=== PATIENT | female | born 1995 | race Caucasian/White ===

== ENCOUNTER 2016-02-28 19:59 | Emergency (ER) | payer OTHER ==
--- NOTE | 2016-02-28 21:26 | ED.PDOC ---
History of Present Illness - General Chief Complaint: Problem Stated Complaint: BACK PAIN Time Seen by Provider: 02/28/16 20:44 Source: patient, family Exam Limitations: no limitations - History of Present Illness Initial Comments: Patient is a at 21 weeks who presents with right flank pain. She started nitrofurantoin for a UTI yesterday and has taken 3 doses. The pain developed today. It is non-radiating, no previous episodes, sharp in nature, associated with occasional nausea. No other complaints. Timing/Duration: 4-6 hours Severity: moderate Improving Factors: nothing Worsening Factors: nothing Associated Symptoms: denies symptoms Allergies/Adverse Reactions: Allergies Oxytocin [From Pitocin] Allergy (Verified 02/28/16 20:44) Soap Adverse Reaction (Intermediate, Verified 02/28/16 20:44) Rash ADHESIVE Adverse Reaction (Uncoded 02/28/16 20:44) Home Medications: Ambulatory Orders Albuterol Sulfate [Proair Hfa] 2 puff INH Q6H PRN 11/07/15 Vit W/ Ferrous Fumara [] 1 tab PO DAILY 11/07/15 Review of Systems - Review of Systems Constitutional: States: no symptoms reported EENTM: States: no symptoms reported Respiratory: States: no symptoms reported Cardiology: States: no symptoms reported Gastrointestinal/Abdominal: States: see HPI Genitourinary: States: see HPI Musculoskeletal: States: see HPI Skin: States: no symptoms reported Neurological: States: no symptoms reported Endocrine: States: no symptoms reported Hematologic/Lymphatic: States: no symptoms reported Past Medical History (General) - Patient Medical History Hx Seizures: No Hx Stroke: No Hx Dementia: No Hx Asthma: Yes Hx of COPD: No Hx Cardiac Disorders: No Hx Congestive Heart Failure: No Hx Pacemaker: No Hx Hypertension: No Hx Thyroid Disease: No Hx Diabetes: No Hx Gastroesophageal Reflux: No Hx Renal Disease: No Hx of HIV: No Hx MRSA: No - Vaccination History Hx Tetanus, Diphtheria Vaccination: No Hx Influenza Vaccination: No Hx Pneumococcal Vaccination: No Immunizations Up to Date: Yes - Social History Hx Tobacco Use: No Hx Alcohol Use: No Hx Substance Use: No Hx Substance Use Treatment: No Hx Depression: No - Female History Patient is a Female of Child Bearing Age (10 -59 yrs old): Yes Hx Last Menstrual Period: 09/23/15 Patient : Yes Expected Date of Delivery:: 06/08/13 Hx Gestational Age: 21 - Triage Comment ED Triage Comment: SHE STATES THAT SHE IS 21 WEEKS,,, Family Medical History - Family History Mother Family History: Unknown Living Status: Still Living Hx Family Hypertension: Yes Hx Family;Other: Seizures Physical Exam - Physical Exam General Appearance: Alert Respiratory: lungs clear Cardiovascular/Chest: regular rate, rhythm Gastrointestinal/Abdominal: normal bowel sounds, non tender, soft, other - FHTs 160s Progress - Progress Progress: 02/28/16 22:17 wbc 13.6 CRP 0.6 FHTs 160s Patient discharged with orders to return if symptoms progress. Departure - Departure Clinical Impression: Flank pain, acute Disposition: Discharge to Home or Self Care Condition: Good Departure Forms: ED Discharge - Pt. Copy, Patient Portal Self Enrollment Diet: resume usual diet Activity: increase activity as tolerated Referrals: Deric Bingham MD [Primary Care Provider] - 1-2 Weeks Home Medications: Ambulatory Orders Albuterol Sulfate [Proair Hfa] 2 puff INH Q6H PRN 11/07/15 Vit W/ Ferrous Fumara [] 1 tab PO DAILY 11/07/15 Additional Instructions: Follow up with your regular doctor next week. Return to the ER if symptoms worsen or for fever.
[2016-02-28 21:35] VITALS: O2SAT 98
[2016-02-28 22:21] VITALS: BP 111/70; TEMP 97.4
== END 2016-02-28 22:19 | disposition home or self-care (01) ==
LOC: ER 19:59
DX: O26.92 Pregnancy related conditions, unspecified, second trimester (principal); Z3A.21 21 weeks gestation of pregnancy; Z88.8 Allergy status to other drugs, medicaments and biological substances; Z91.048 Other nonmedicinal substance allergy status; J45.909 Unspecified asthma, uncomplicated

== ENCOUNTER 2016-03-28 11:24 | Emergency (ER) | payer OTHER ==
[2016-03-28 11:39] VITALS: BP 100/60; TEMP 97.3
--- NOTE | 2016-03-28 12:14 | ED.PDOC ---
History of Present Illness - General Chief Complaint: Respiratory Problem Stated Complaint: cough,congestion Time Seen by Provider: 03/28/16 12:11 Source: patient Exam Limitations: no limitations - History of Present Illness Initial Comments: She stated that she has history of asthma on mdi and the last 3 days cough becoming more frequent and nasal congestion worse.denies feve /chills. Timing/Duration: other - 3 days Severity: moderate Improving Factors: nothing Worsening Factors: nothing Associated Symptoms: denies symptoms, other - denies uterine contraction or vaginal bleeding Allergies/Adverse Reactions: Allergies Oxytocin [From Pitocin] Allergy (Verified 02/28/16 20:44) Soap Adverse Reaction (Intermediate, Verified 02/28/16 20:44) Rash ADHESIVE Adverse Reaction (Uncoded 02/28/16 20:44) Home Medications: Ambulatory Orders Vit W/ Ferrous Fumara [] 1 tab PO DAILY 11/07/15 predniSONE [Prednisone] 10 mg PO AC #7 tab 03/28/16 Review of Systems - Review of Systems Constitutional: States: no symptoms reported EENTM: States: nose congestion Respiratory: States: cough - non productive Cardiology: States: no symptoms reported Gastrointestinal/Abdominal: States: no symptoms reported Genitourinary: States: no symptoms reported Musculoskeletal: States: no symptoms reported Skin: States: no symptoms reported Neurological: States: no symptoms reported Endocrine: States: no symptoms reported Hematologic/Lymphatic: States: no symptoms reported Past Medical History (General) - Patient Medical History Hx Seizures: No Hx Stroke: No Hx Dementia: No Hx Asthma: Yes Hx of COPD: No Hx Cardiac Disorders: No Hx Congestive Heart Failure: No Hx Pacemaker: No Hx Hypertension: No Hx Thyroid Disease: No Hx Diabetes: No Hx Gastroesophageal Reflux: No Hx Renal Disease: No Hx of HIV: No Hx MRSA: No Surgical History: other - - Vaccination History Hx Tetanus, Diphtheria Vaccination: No Hx Influenza Vaccination: No Hx Pneumococcal Vaccination: No - Social History Hx Tobacco Use: No Hx Alcohol Use: No Hx Substance Use: No Hx Substance Use Treatment: No Hx Depression: No - Activities of Daily Living Patient Lives Alone: No - family - Female History Patient is a Female of Child Bearing Age (10 -59 yrs old): Yes Hx Last Menstrual Period: 09/23/15 Patient : Yes Expected Date of Delivery:: 07/06/16 Hx Gestational Age: 25 Family Medical History - Family History Mother Family History: Unknown Living Status: Still Living Hx Family Asthma: Yes Hx Family Hypertension: Yes Hx Family;Other: Seizures Physical Exam - Physical Exam General Appearance: Alert, No apparent distress Eye Exam: bilateral normal Ears, Nose, Throat: nasal congestion Neck: non-tender, full range of motion, supple Respiratory: chest non-tender, no respiratory distress, no accessory muscle use , wheezing Cardiovascular/Chest: normal peripheral pulses, regular rate, rhythm, no edema, no gallop, no JVD, no murmur Gastrointestinal/Abdominal: normal bowel sounds, non tender, soft, other - gravid uterus Extremity: non-tender, normal inspection Neurologic: alert, normal mood/affect, oriented x 3 Skin Exam: normal color, warm/dry Lymphatic: no adenopathy Departure - Departure Clinical Impression: Asthma with exacerbation Qualifiers: Asthma severity: unspecified severity Qualifier Code: (J45.901) Unspecified asthma with (acute) exacerbation Time of Disposition: 13:11 Disposition: Discharge to Home or Self Care Condition: Good Departure Forms: ED Discharge - Pt. Copy, Patient Portal Self Enrollment Instructions: Tips for Controlling Your Asthma, DI for Asthma -- Adult, Poorly Controlled Maternal Asthma May Increase Risk of , Pandemic (H1N1) Influenza Vaccine: Questions and Answers, Influenza Vaccine Referrals: Deric Bingham MD [Primary Care Provider] - 1-2 Weeks Prescriptions: predniSONE [Prednisone] 10 mg PO AC #7 tab Home Medications: Ambulatory Orders Vit W/ Ferrous Fumara [] 1 tab PO DAILY 11/07/15 predniSONE [Prednisone] 10 mg PO AC #7 tab 03/28/16 Additional Instructions: CONTINUE WITH HOME MEDS FOR ASTHMA;RETURN TO EMERGENCY ROOM NEEDED;FOLLOW UP WITH PRIMARY MD 03/31/2016 call for appointment
[2016-03-28] MEDS ORDERED: LEVALBUTEROL NEBS 1.25 MG/3 ML VIAL NEB ONE (12:19)
[2016-03-28 12:40] VITALS: O2SAT 98
== END 2016-03-28 13:45 | disposition home or self-care (01) ==
LOC: ER 11:24
DX: O99.512 Diseases of the respiratory system complicating pregnancy, second trimester (principal); J45.901 Unspecified asthma with (acute) exacerbation; Z3A.25 25 weeks gestation of pregnancy; Z88.8 Allergy status to other drugs, medicaments and biological substances; Z91.048 Other nonmedicinal substance allergy status
CPT/HCPCS: 94640; J7614

== ENCOUNTER 2016-03-29 13:11 | Emergency (ER) | payer OTHER ==
[2016-03-29] MEDS ORDERED: IPRATROPIUM/ALBUTEROL 3 ML VIAL NEB ONE ×2 (13:18→13:19)
[2016-03-29 13:23] VITALS: TEMP 98.7
--- NOTE | 2016-03-29 13:31 | ED.PDOC ---
History of Present Illness - General Chief Complaint: Respiratory Problem Stated Complaint: difficulty breathing Time Seen by Provider: 03/29/16 13:19 Source: patient, RN notes reviewed, Vital Signs reviewed, family, old records Exam Limitations: no limitations - History of Present Illness Initial Comments: Patient returns to the ER today with continued complaints of SOB. Today she also reports burning in her chest. She was seen yesterday with the same symptoms and improved with a neb treatment. She is 25 weeks . She also c /o of a lot of nasal congestion. Timing/Duration: days Severity: moderate Activities at Onset: rest Possible Cause: allergen exposure, illness exposure Improving Factors: medication Worsening Factors: nothing Associated Symptoms: anxiety, chest pain, cough Respiratory Risk Factors: exposure to allergen Allergies/Adverse Reactions: Allergies Oxytocin [From Pitocin] Allergy (Verified 02/28/16 20:44) Soap Adverse Reaction (Intermediate, Verified 02/28/16 20:44) Rash ADHESIVE Adverse Reaction (Uncoded 02/28/16 20:44) Home Medications: Ambulatory Orders Vit W/ Ferrous Fumara [] 1 tab PO DAILY 11/07/15 predniSONE [Prednisone] 10 mg PO AC #7 tab 03/28/16 Azithromycin [Zithromax Z-Barber] 1 ea PO DAILY #1 pack 03/29/16 Review of Systems - Review of Systems Constitutional: States: no symptoms reported. Denies: chills, diaphoresis, fever, malaise, weakness EENTM: States: nose congestion. Denies: blurred vision, ear pain, throat pain, throat swelling, mouth swelling Respiratory: States: cough, short of breath. Denies: orthopnea, stridor, wheezing Cardiology: States: no symptoms reported. Denies: chest pain, edema, palpitations, syncope Gastrointestinal/Abdominal: States: no symptoms reported Genitourinary: States: no symptoms reported Musculoskeletal: States: no symptoms reported Skin: States: no symptoms reported Neurological: States: no symptoms reported Past Medical History (General) - Patient Medical History Hx Seizures: No Hx Stroke: No Hx Dementia: No Hx Asthma: Yes Hx of COPD: No Hx Cardiac Disorders: No Hx Congestive Heart Failure: No Hx Pacemaker: No Hx Hypertension: No Hx Thyroid Disease: No Hx Diabetes: No Hx Gastroesophageal Reflux: No Hx Renal Disease: No Hx of HIV: No Hx MRSA: No - Vaccination History Hx Tetanus, Diphtheria Vaccination: No Hx Influenza Vaccination: No Hx Pneumococcal Vaccination: No - Social History Hx Tobacco Use: No Hx Alcohol Use: No Hx Substance Use: No Hx Substance Use Treatment: No Hx Depression: No - Female History Patient is a Female of Child Bearing Age (10 -59 yrs old): Yes Hx Last Menstrual Period: 09/23/15 Patient : Yes Expected Date of Delivery:: 07/06/16 Hx Gestational Age: 25 Family Medical History - Family History Mother Family History: Unknown Living Status: Still Living Hx Family Asthma: Yes Hx Family Hypertension: Yes Hx Family;Other: Seizures Physical Exam - Physical Exam General Appearance: Alert, Anxious - Crying on arrival to ER, No apparent distress, Well Developed, Well Groomed, Well Hydrated, Well Nourished Eyes, Ears, Nose, Throat Exam: other - Nasal congestion Neck: non-tender, full range of motion, supple, normal inspection Respiratory: chest non-tender, lungs clear, normal breath sounds, no respiratory distress, no accessory muscle use Cardiovascular/Chest: regular rate, rhythm, no edema, no gallop, no JVD, no murmur Extremity: normal range of motion, non-tender, normal inspection, no pedal edema Neurologic: no motor/sensory deficits, alert, normal mood/affect, oriented x 3 Skin Exam: normal color, warm/dry Lymphatic: no adenopathy Progress - EKG/XRAY/CT XRAY: chest - No acute process Departure - Departure Clinical Impression: Acute bronchospasm, Acute bronchitis Time of Disposition: 14:39 Disposition: Discharge to Home or Self Care Condition: Good Departure Forms: ED Discharge - Pt. Copy, Patient Portal Self Enrollment Instructions: DI for Acute Bronchitis, Asthma -- Adult Diet: resume usual diet Activity: increase activity as tolerated Prescriptions: Azithromycin [Zithromax Z-Barber] 1 ea PO DAILY #1 pack Home Medications: Ambulatory Orders Vit W/ Ferrous Fumara [] 1 tab PO DAILY 11/07/15 predniSONE [Prednisone] 10 mg PO AC #7 tab 03/28/16 Azithromycin [Zithromax Z-Barber] 1 ea PO DAILY #1 pack 03/29/16
--- NOTE | 2016-03-29 14:37 | RAD ---
PROCEDURE: Chest,2 Views CLINICAL HISTORY: SOB INDICATION: Same as above COMPARISON: 12/19/2011 TECHNIQUE: PA and and lateral chest radiographs were obtained. FINDINGS: The lung freeman are well inflated. There are no discrete airspace infiltrates, pneumothoraces or pleural effusions. The pulmonary vascularity is normal The cardiomediastinal silhouette is unremarkable for patient's age and sex. IMPRESSION: There is no acute pleural-parenchymal process seen in the imaged lung freeman. Place of interpretation: [facility]. 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
[2016-03-29] MEDS ORDERED: methylPREDNISolone SODIUM SUC 125 MG/2 ML VIAL IM ONE (14:38)
[2016-03-29 15:11] VITALS: BP 107/76; O2SAT 98
--- NOTE | 2016-04-13 00:07 | RAD ---
PROCEDURE: Chest,2 Views CLINICAL HISTORY: SOB INDICATION: Same as above COMPARISON: 12/19/2011 TECHNIQUE: PA and and lateral chest radiographs were obtained. FINDINGS: The lung freeman are well inflated. There are no discrete airspace infiltrates, pneumothoraces or pleural effusions. The pulmonary vascularity is normal The cardiomediastinal silhouette is unremarkable for patient's age and sex. IMPRESSION: There is no acute pleural-parenchymal process seen in the imaged lung freeman. Place of interpretation: [facility]. 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
== END 2016-03-29 15:10 | disposition home or self-care (01) ==
LOC: ER 13:11
DX: O99.512 Diseases of the respiratory system complicating pregnancy, second trimester (principal); J20.9 Acute bronchitis, unspecified; Z3A.25 25 weeks gestation of pregnancy; Z88.8 Allergy status to other drugs, medicaments and biological substances; Z91.048 Other nonmedicinal substance allergy status
CPT/HCPCS: 71020; 94640; J2930; J7620

== ENCOUNTER 2016-04-25 16:19 | Emergency (ER) | payer OTHER ==
--- NOTE | 2016-04-25 16:42 | ED.PDOC ---
History of Present Illness - General Chief Complaint: Problem Stated Complaint: dysuria Time Seen by Provider: 04/25/16 16:20 Source: patient, RN notes reviewed Exam Limitations: no limitations Additional Information: Pt reports symptoms consistent with a UTI - dysuria and increased urinary frequency. She denies vaginal bleeding and she states she feels the baby moving. - History of Present Illness Timing/Duration: yesterday Quality: moderate Onset Location: suprapubic Radiation: none Activites at Onset: none Improving Factors: nothing Worsening Factors: nothing Associated Symptoms: dysuria, urinary frequency Allergies/Adverse Reactions: Allergies Oxytocin [From Pitocin] Allergy (Verified 02/28/16 20:44) Soap Adverse Reaction (Intermediate, Verified 02/28/16 20:44) Rash ADHESIVE Adverse Reaction (Uncoded 02/28/16 20:44) Home Medications: Ambulatory Orders Vit W/ Ferrous Fumara [] 1 tab PO DAILY 11/07/15 Nitrofurantoin Monohydrate Mac [Macrobid] 100 mg PO BID #10 cap 04/25/16 Review of Systems - Review of Systems Constitutional: States: no symptoms reported EENTM: States: no symptoms reported Respiratory: States: no symptoms reported Cardiology: States: no symptoms reported Gastrointestinal/Abdominal: States: no symptoms reported Genitourinary: States: see HPI, dysuria, frequency Musculoskeletal: States: no symptoms reported Skin: States: no symptoms reported Neurological: States: no symptoms reported Endocrine: States: no symptoms reported Hematologic/Lymphatic: States: no symptoms reported Past Medical History (General) - Patient Medical History Hx Seizures: No Hx Stroke: No Hx Dementia: No Hx Asthma: Yes Hx of COPD: No Hx Cardiac Disorders: No Hx Congestive Heart Failure: No Hx Pacemaker: No Hx Hypertension: No Hx Thyroid Disease: No Hx Diabetes: No Hx Gastroesophageal Reflux: No Hx Renal Disease: No Hx of HIV: No Hx MRSA: No - Vaccination History Hx Tetanus, Diphtheria Vaccination: No Hx Influenza Vaccination: No Hx Pneumococcal Vaccination: No - Social History Hx Tobacco Use: No Hx Alcohol Use: No Hx Substance Use: No Hx Substance Use Treatment: No Hx Depression: No - Female History Hx Last Menstrual Period: 09/23/15 Patient : Yes Expected Date of Delivery:: 07/06/16 Hx Gestational Age: 25 Family Medical History - Family History Mother Family History: Unknown Living Status: Still Living Hx Family Asthma: Yes Hx Family Hypertension: Yes Hx Family;Other: Seizures Physical Exam - Physical Exam General Appearance: Alert, Comfortable, No apparent distress, Well Developed, Well Groomed, Well Hydrated, Well Nourished, Other - Gravid - reported 29 weeks EGA. Eyes, Ears, Nose, Throat Exam: PERRL/EOMI, normal ENT inspection, pharynx normal Neck: non-tender, full range of motion, supple, normal inspection Cardiovascular/Respiratory: normal peripheral pulses, no respiratory distress Gastrointestinal/Abdominal: soft, other - FHR 160s Back Exam: normal inspection Extremity: normal range of motion, non-tender, normal inspection Neurologic: manager bilingual II-XII nml as tested, no motor/sensory deficits, alert, normal mood/affect, oriented x 3 Skin Exam: normal color Lymphatic: no adenopathy Progress - Progress Progress: 04/25/16 17:33 U/A suggestive of UTI. Will cover with nitrofurantoin and order Urine Culture to confirm presence of UTI. Pt with OB f/u in 3 days. Pt ok to discharge home with strict return precautions. - Results/Orders Results/Orders: 04/25/16 16:49 URINE CULTURE W/COLONY COUNT Stat Laboratory Results - last 24 hr 04/25/16 16:34 Urine Color Yellow Urine Appearance Sl cloudy Urine pH 7.0 Ur Specific [place] 1.015 Urine Protein Negative Urine Glucose (UA) Negative Urine Ketones Negative Urine Blood Trace-lysed H Urine Nitrite Negative Urine Bilirubin Negative Urine Urobilinogen 0.2 Ur Leukocyte Esterase Trace H Urine RBC 1-3 Urine WBC 3-5 H Ur Epithelial Cells 3-5 Urine Bacteria 1+ Departure - Departure Clinical Impression: Acute cystitis during Qualifiers: Trimester: third trimester Qualifier Code: (O23.13) Infections of bladder in , third trimester Time of Disposition: 17:40 Disposition: Discharge to Home or Self Care Condition: Good Departure Forms: ED Discharge - Pt. Copy, Patient Portal Self Enrollment Referrals: Deric Bingham MD [Primary Care Provider] - 1-5 Days Prescriptions: Nitrofurantoin Monohydrate Mac [Macrobid] 100 mg PO BID #10 cap Home Medications: Ambulatory Orders Vit W/ Ferrous Fumara [] 1 tab PO DAILY 11/07/15 Nitrofurantoin Monohydrate Mac [Macrobid] 100 mg PO BID #10 cap 04/25/16 Additional Instructions: Follow up with OB provider as scheduled. Return to ER if condition worsens, or vaginal bleeding. Take medicine as prescribed. Follow-up on urine culture results in 2 to 3 days. Stay well hydrated with water - at least 1 to 2 liters/day.
[2016-04-25 18:48] VITALS: TEMP 98.4; O2SAT 95
[2016-04-25 19:07] VITALS: BP 124/68
== END 2016-04-25 17:56 | disposition home or self-care (01) ==
LOC: ER 16:19
DX: O23.43 Unspecified infection of urinary tract in pregnancy, third trimester (principal); O99.513 Diseases of the respiratory system complicating pregnancy, third trimester; J45.909 Unspecified asthma, uncomplicated; Z3A.29 29 weeks gestation of pregnancy; Z88.8 Allergy status to other drugs, medicaments and biological substances; Z91.048 Other nonmedicinal substance allergy status

== ENCOUNTER 2016-06-30 20:01 | Emergency (ER) | payer OTHER ==
[2016-06-30 20:32] VITALS: BP 125/82; TEMP 99.1; O2SAT 99
[2016-06-30] MEDS ORDERED: AMOXICILLIN & POT CLAVULANATE 875 MG TAB PO ONE (20:32)
[2016-06-30] MEDS ORDERED: ONDANSETRON ODT 8 MG TAB SL ONE (20:32)
--- NOTE | 2016-06-30 20:35 | ED.PDOC ---
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 She thinks she has mastitis. She is having a lot of difficulty with breast feeding. She has tried breast feeding by won't latch on. She has tried pumps, hot compressed and cabbage leaves, all without success. Timing/Duration: 24 hours Severity: moderate Improving Factors: nothing Worsening Factors: nothing Associated Symptoms: headaches, malaise, nausea/vomiting Allergies/Adverse Reactions: Allergies Soap Adverse Reaction (Intermediate, Verified 06/30/16 20:21) Rash Oxytocin [From Pitocin] Adverse Reaction (Verified 06/30/16 20:21) ADHESIVE Adverse Reaction (Uncoded 06/30/16 20:21) Home Medications: Ambulatory Orders Vit W/ Ferrous Fumara [] 1 tab PO DAILY 11/07/15 Amoxicillin & Pot Clavulanate [Augmentin] 875 mg PO BID #20 tab 06/30/16 Ibuprofen 800 mg PO PRN 06/30/16 Ondansetron [Zofran Odt] 4 mg PO Q4HR PRN #20 tab 06/30/16 Oxycodone W/ Acetaminophen [Percocet 5-325 mg] 1 dose PO PRN 06/30/16 Review of Systems - Review of Systems Constitutional: States: chills, fever, malaise EENTM: States: no symptoms reported Respiratory: States: no symptoms reported Cardiology: States: no symptoms reported Gastrointestinal/Abdominal: States: nausea. Denies: abdominal pain, vomiting Musculoskeletal: States: no symptoms reported Skin: States: see HPI, other - Breasts are engorged, erythematous, tender and warm Neurological: States: headache Endocrine: States: no symptoms reported Past Medical History (General) - Patient Medical History Hx Seizures: No Hx Stroke: No Hx Dementia: No Hx Asthma: Yes Hx of COPD: No Hx Cardiac Disorders: No Hx Congestive Heart Failure: No Hx Pacemaker: No Hx Hypertension: No Hx Thyroid Disease: No Hx Diabetes: No - hypoglycemia Hx Gastroesophageal Reflux: No Hx Renal Disease: No Hx Cancer: No Hx of HIV: No Hx Hepatitis C: No Hx MRSA: No - Vaccination History Hx Tetanus, Diphtheria Vaccination: No Hx Influenza Vaccination: No Hx Pneumococcal Vaccination: No - Social History Hx Tobacco Use: No Hx Chewing Tobacco Use: No Hx Alcohol Use: No Hx Substance Use: No Hx Substance Use Treatment: No Hx Depression: No Hx Physical Abuse: No Hx Emotional Abuse: No Hx Suspected Abuse: No - Female History Patient is a Female of Child Bearing Age (10 -59 yrs old): Yes Hx Last Menstrual Period: 09/23/15 Patient : No Expected Date of Delivery:: 07/06/16 Hx Gestational Age: 25 Family Medical History - Family History Mother Family History: Unknown Living Status: Still Living Hx Family Asthma: Yes Hx Family Hypertension: Yes Hx Family;Other: Seizures Physical Exam - Physical Exam General Appearance: Alert, No apparent distress, Ill Appearing, Well Developed, Well Groomed, Well Hydrated, Well Nourished Respiratory: lungs clear, normal breath sounds, no respiratory distress, no accessory muscle use Cardiovascular/Chest: regular rate, rhythm, no gallop, no murmur, other - Bilateral Breast: engorged, erythematous, tender and warm to the touch Gastrointestinal/Abdominal: other - C-sec incision: healing well, no signs of infection Extremity: normal range of motion, non-tender, normal inspection, no pedal edema Neurologic: alert, normal mood/affect, oriented x 3 Departure - Departure Clinical Impression: Mastitis, acute Time of Disposition: 20:39 Disposition: Discharge to Home or Self Care Condition: Fair Departure Forms: ED Discharge - Pt. Copy, Patient Portal Self Enrollment Instructions: DI for Mastitis Referrals: Liliana Massey NP [Primary Care Provider] - 1-2 Weeks Deric Bingham MD [Active Staff] - 1-5 Days Prescriptions: Ondansetron [Zofran Odt] 4 mg PO Q4HR PRN #20 tab PRN Reason: Nausea/Vomiting Amoxicillin & Pot Clavulanate [Augmentin] 875 mg PO BID #20 tab Home Medications: Ambulatory Orders Vit W/ Ferrous Fumara [] 1 tab PO DAILY 11/07/15 Amoxicillin & Pot Clavulanate [Augmentin] 875 mg PO BID #20 tab 06/30/16 Ibuprofen 800 mg PO PRN 06/30/16 Ondansetron [Zofran Odt] 4 mg PO Q4HR PRN #20 tab 06/30/16 Oxycodone W/ Acetaminophen [Percocet 5-325 mg] 1 dose PO PRN 06/30/16
== END 2016-06-30 20:55 | disposition home or self-care (01) ==
LOC: ER 20:01
DX: N61.0 Mastitis without abscess (principal); Z88.8 Allergy status to other drugs, medicaments and biological substances; Z91.048 Other nonmedicinal substance allergy status

== ENCOUNTER 2016-11-21 10:49 | Emergency (ER) | payer SELFPAY ==
[2016-11-21 11:10] VITALS: TEMP 98.1
[2016-11-21] MEDS ORDERED: ONDANSETRON INJ 4 MG/2 ML VIAL IV ONE ×2 (11:21→13:22)
[2016-11-21] MEDS ORDERED: SODIUM CHLORIDE 0.9% 1000ML 1,000 ML IVS ONE ×2 (11:21→12:28)
--- NOTE | 2016-11-21 11:38 | ED.PDOC ---
History of Present Illness - General Chief Complaint: Abdominal Pain Stated Complaint: upper abdominal pain,n/v Time Seen by Provider: 11/21/16 11:20 Information Source: patient, RN notes reviewed, Vital Signs reviewed, family Exam Limitations: no limitations - History of Present Illness Initial Comments: Patient comes to ER with c/o sharp epigastric abdominal pain that started @ 07: 00 this morning. + nausea and vomiting. +diarrhea yesterday, no bowel movement yet today. Pain spreads across her whole upper abdomen and occassionally to her R flank. She had chicken and a burger from [employer] last night for dinner. Abdominal Pain Onset Location: epigastric Pain Radiation: RUQ, LUQ, flank - right Quality: severe, sharpness Timing/Duration: 4-6 hours Improving Factors: nothing Worsening Factors: nothing Associated Symptoms: back pain, diaphoresis, diarrhea, nausea/vomiting Review of Systems - Review of Systems Constitutional: States: diaphoresis, malaise. Denies: chills, fever EENTM: States: no symptoms reported Respiratory: States: no symptoms reported Cardiology: States: no symptoms reported Gastrointestinal/Abdominal: States: see HPI, abdominal pain, diarrhea, nausea, vomiting Genitourinary: States: no symptoms reported. Denies: dysuria, pain Musculoskeletal: States: see HPI, back pain - right flank Skin: States: see HPI Neurological: States: no symptoms reported All other Systems: No Change from Baseline Past Medical History (General) - Patient Medical History Hx Seizures: No Hx Stroke: No Hx Dementia: No Hx Asthma: Yes Hx of COPD: No Hx Cardiac Disorders: No Hx Congestive Heart Failure: No Hx Pacemaker: No Hx Hypertension: No Hx Thyroid Disease: No Hx Diabetes: No - hypoglycemia Hx Gastroesophageal Reflux: No Hx Renal Disease: No Hx Cancer: No Hx of HIV: No Hx Hepatitis C: No Hx MRSA: No - Vaccination History Hx Tetanus, Diphtheria Vaccination: No Hx Influenza Vaccination: No Hx Pneumococcal Vaccination: No - Social History Hx Tobacco Use: No Hx Chewing Tobacco Use: No Hx Alcohol Use: No Hx Substance Use: No Hx Substance Use Treatment: No Hx Depression: No Hx Physical Abuse: No Hx Emotional Abuse: No Hx Suspected Abuse: No - Female History Patient is a Female of Child Bearing Age (10 -59 yrs old): Yes Hx Last Menstrual Period: 09/23/15 Patient : No Expected Date of Delivery:: 07/06/16 Hx Gestational Age: 25 Family Medical History - Family History Mother Family History: Unknown Living Status: Still Living Hx Family Asthma: Yes Hx Family Hypertension: Yes Hx Family;Other: Seizures Physical Exam - Physical Exam General Appearance: Alert, Ill Appearing, Well Developed, Well Groomed, Well Nourished Neck: non-tender, full range of motion, supple, normal inspection Respiratory: lungs clear, normal breath sounds, no respiratory distress, no accessory muscle use Cardiovascular/Chest: regular rate, rhythm, no gallop, no murmur Gastrointestinal/Abdominal: soft, no organomegaly, no pulsatile mass, abnormal bowel sounds - hypoactive, tenderness - epigastric tenderness w/o guarding or rebound. negative [place] sign Extremity: normal range of motion, normal inspection, no pedal edema Neurologic: alert, normal mood/affect, oriented x 3 Skin Exam: diaphoresis, pallor Comments: Vital Signs 11/21/16 11:07 Temperature 98.1 F Pulse Rate [ 58 L Right Brachial] Respiratory 20 Rate Blood Pressure 108/72 [Right Arm] O2 Sat by Pulse 98 Oximetry Progress - Progress Progress: 11/21/16 12:27 Patient sleeping after Zofran. Once able to wake her up she does report pain is still present. Suspect this is an early gastroenteritis as she has an elevated white count with otherwise unremarkable labs, normal urine and negative Knox's sign. Will give 2nd L of NS and re-evaluate. 11/21/16 14:18 Patient is feeling better after second dose of Zofran 4mg IV and Protonix 40mg IV. Will d/c home with Rx for both. ER warnings given - Results/Orders Results/Orders: Laboratory Tests 11/21/16 11/21/16 11/21/16 11:27 11:27 11:43 WBC 16.9 H RBC 4.83 Hgb 13.9 Hct 41.4 MCV 85.6 MCH 28.7 MCHC 33.7 RDW 13.5 Plt Count 343 MPV 8.4 Absolute Neuts (auto) 14.50 H Absolute Lymphs (auto) 1.40 Absolute Monos (auto) 0.90 H Absolute Eos (auto) 0.10 Absolute Basos (auto) 0.00 Neutrophils % 85.6 H Lymphocytes % 8.1 L Monocytes % 5.6 Eosinophils % 0.5 L Basophils % 0.2 Sodium 137 Potassium 3.5 L Chloride 105 Carbon Dioxide 23 Anion Gap 12.5 BUN 11 Creatinine 0.62 BUN/Creatinine Ratio 17.7 Random Glucose 96 Serum Osmolality 273.1 L Calcium 9.5 Total Bilirubin 0.8 AST 22 ALT 29 Alkaline Phosphatase 53 L Serum Total Protein 8.2 Albumin 4.4 Globulin 3.8 H Albumin/Globulin Ratio 1.2 Amylase 36 Lipase 20 L Urine Color Urine Appearance Urine pH Ur Specific [place] Urine Protein Urine Glucose (UA) Urine Ketones Urine Blood Urine Nitrite Urine Bilirubin Urine Urobilinogen Ur Leukocyte Esterase Urine RBC Urine WBC Ur Epithelial Cells Urine Bacteria Urine HCG, Qual Negative 11/21/16 11:52 WBC RBC Hgb Hct MCV MCH MCHC RDW Plt Count MPV Absolute Neuts (auto) Absolute Lymphs (auto) Absolute Monos (auto) Absolute Eos (auto) Absolute Basos (auto) Neutrophils % Lymphocytes % Monocytes % Eosinophils % Basophils % Sodium Potassium Chloride Carbon Dioxide Anion Gap BUN Creatinine BUN/Creatinine Ratio Random Glucose Serum Osmolality Calcium Total Bilirubin AST ALT Alkaline Phosphatase Serum Total Protein Albumin Globulin Albumin/Globulin Ratio Amylase Lipase Urine Color Yellow Urine Appearance Clear Urine pH 6.5 Ur Specific [place] 1.025 Urine Protein Negative Urine Glucose (UA) Negative Urine Ketones Trace Urine Blood Negative Urine Nitrite Negative Urine Bilirubin Negative Urine Urobilinogen 0.2 Ur Leukocyte Esterase Trace H Urine RBC 0 Urine WBC 0 Ur Epithelial Cells 3-5 Urine Bacteria 0 Urine HCG, Qual Departure - Departure Clinical Impression: Gastroenteritis Time of Disposition: 14:19 Disposition: Discharge to Home or Self Care Condition: Good Departure Forms: ED Discharge - Pt. Copy, Patient Portal Self Enrollment, Work Release Form Instructions: DI for Viral Gastroenteritis -- Adult Diet: resume usual diet Activity: increase activity as tolerated Prescriptions: Ondansetron Odt [Zofran ODT] 8 mg PO Q6HR PRN #15 tab PRN Reason: Nausea/Vomiting Pantoprazole Tablet [Protonix] 40 mg PO ACBK #14 tab Home Medications: Ambulatory Orders Albuterol Sulfate [Proair Hfa] 2 puff INH Q6H PRN 11/21/16 Control Pill 11/21/16 Ondansetron Odt [Zofran ODT] 8 mg PO Q6HR PRN #15 tab 11/21/16 Pantoprazole Tablet [Protonix] 40 mg PO ACBK #14 tab 11/21/16
[2016-11-21] MEDS ORDERED: PANTOPRAZOLE SODIUM IV 40 MG VIAL IV ONE (13:22)
[2016-11-21] MEDS ORDERED: SODIUM CHLORIDE 0.9% 10 ML VIAL ONE (13:30)
[2016-11-21 14:35] VITALS: BP 111/68; O2SAT 99
== END 2016-11-21 14:35 | disposition home or self-care (01) ==
LOC: ER 10:49
DX: K52.9 Noninfective gastroenteritis and colitis, unspecified (principal)
CPT/HCPCS: 36415; 80053; 81001; 81025; 82150; 83690; 85025; J2405; J7030

== ENCOUNTER 2016-11-22 12:16 | Emergency (ER) | payer SELFPAY ==
--- NOTE | 2016-11-22 13:11 | ED.PDOC ---
History of Present Illness - General Chief Complaint: Abdominal Pain Stated Complaint: abd pain,n/v,back pain Time Seen by Provider: 11/22/16 12:50 Information Source: patient Exam Limitations: no limitations - History of Present Illness Initial Comments: Angie Douglas 20 y/o female stated that she had nausea vomiting yesterday was seen in er and sent home after given ivf hydration and antiemetic but tis am had onset of sharp lower abdominal pain where her c/s incision done in june/2016. Abdominal Pain Onset Location: suprapubic Pain Radiation: no radiation Quality: sharpness Timing/Duration: 7-24 hours Worsening Factors: nothing Associated Symptoms: nausea/vomiting Review of Systems - Review of Systems Constitutional: States: no symptoms reported EENTM: States: no symptoms reported Respiratory: States: no symptoms reported Cardiology: States: no symptoms reported Gastrointestinal/Abdominal: States: see HPI Musculoskeletal: States: no symptoms reported Past Medical History (General) - Patient Medical History Hx Seizures: No Hx Stroke: No Hx Dementia: No Hx Asthma: Yes Hx of COPD: No Hx Cardiac Disorders: No Hx Congestive Heart Failure: No Hx Pacemaker: No Hx Hypertension: No Hx Thyroid Disease: No Hx Diabetes: No - hypoglycemia Hx Gastroesophageal Reflux: No Hx Renal Disease: No Hx Cancer: No Hx of HIV: No Hx Hepatitis C: No Hx MRSA: No Surgical History: other - c- section - Vaccination History Hx Tetanus, Diphtheria Vaccination: No Hx Influenza Vaccination: No Hx Pneumococcal Vaccination: No - Social History Hx Tobacco Use: No Hx Chewing Tobacco Use: No Hx Alcohol Use: No Hx Substance Use: No Hx Substance Use Treatment: No Hx Depression: No Hx Physical Abuse: No Hx Emotional Abuse: No Hx Suspected Abuse: No - Female History Hx Last Menstrual Period: 09/23/15 Patient : No Expected Date of Delivery:: 07/06/16 Hx Gestational Age: 25 Family Medical History - Family History Mother Family History: Unknown Living Status: Still Living Hx Family Asthma: Yes Hx Family Hypertension: Yes Hx Family;Other: Seizures Physical Exam - Physical Exam General Appearance: Alert, Anxious, No apparent distress Eyes, Ears, Nose, Throat Exam: PERRL/EOMI, normal ENT inspection Neck: full range of motion, supple Respiratory: chest non-tender, lungs clear Cardiovascular/Chest: regular rate, rhythm, no murmur Peripheral Pulses: No deficit Gastrointestinal/Abdominal: normal bowel sounds, soft, no organomegaly, tenderness - suprapubic area;positive rebound Pelvic Exam: tender w/ cervical motion - bilateral Back Exam: no vertebral tenderness Extremity: no pedal edema, no calf tenderness Neurologic: alert, normal mood/affect, oriented x 3 Skin Exam: normal color, warm/dry Progress - Progress Progress: 11/22/16 14:11 Vital Signs - 8 hr 11/22/16 12:51 Temperature 103.5 F H Pulse Rate [ 122 H Left Brachial] Respiratory 20 Rate Blood Pressure 135/39 [Left Arm] O2 Sat by Pulse 100 Oximetry - Results/Orders Results/Orders: Laboratory Tests 11/22/16 11/22/16 11/22/16 13:12 13:23 13:23 WBC 9.1 RBC 4.82 Hgb 14.0 Hct 41.3 MCV 85.7 MCH 29.0 MCHC 33.8 RDW 13.9 Plt Count 270 MPV 8.0 Absolute Neuts (auto) 8.50 H Absolute Lymphs (auto) 0.40 L Absolute Monos (auto) 0.20 Absolute Eos (auto) 0.00 Absolute Basos (auto) 0.00 Neutrophils % 93.7 H Lymphocytes % 4.3 L Monocytes % 1.8 L Eosinophils % 0.1 L Basophils % 0.1 Sodium 135 Potassium 4.0 Chloride 103 Carbon Dioxide 24 Anion Gap 12.0 BUN 8 Creatinine 0.57 L BUN/Creatinine Ratio 14.0 Random Glucose 119 H Serum Osmolality 269.6 L Lactic Acid Calcium 9.3 Total Bilirubin 1.0 AST 15 ALT 21 Alkaline Phosphatase 52 L Serum Total Protein 7.9 Albumin 4.0 Globulin 3.9 H Albumin/Globulin Ratio 1.0 L Lipase 18 L Urine Color Urine Appearance Urine pH Ur Specific [place] Urine Protein Urine Glucose (UA) Urine Ketones Urine Blood Urine Nitrite Urine Bilirubin Urine Urobilinogen Ur Leukocyte Esterase Urine RBC Urine WBC Ur Epithelial Cells Urine Bacteria Urine HCG, Qual Negative 11/22/16 11/22/16 13:48 13:58 WBC RBC Hgb Hct MCV MCH MCHC RDW Plt Count MPV Absolute Neuts (auto) Absolute Lymphs (auto) Absolute Monos (auto) Absolute Eos (auto) Absolute Basos (auto) Neutrophils % Lymphocytes % Monocytes % Eosinophils % Basophils % Sodium Potassium Chloride Carbon Dioxide Anion Gap BUN Creatinine BUN/Creatinine Ratio Random Glucose Serum Osmolality Lactic Acid 1.9 Calcium Total Bilirubin AST ALT Alkaline Phosphatase Serum Total Protein Albumin Globulin Albumin/Globulin Ratio Lipase Urine Color Yellow Urine Appearance Clear Urine pH 7.0 Ur Specific [place] 1.025 Urine Protein Trace Urine Glucose (UA) Negative Urine Ketones 80 H Urine Blood Negative Urine Nitrite Negative Urine Bilirubin Negative Urine Urobilinogen 0.2 Ur Leukocyte Esterase Negative Urine RBC 0 Urine WBC 0 Ur Epithelial Cells 0 Urine Bacteria 0 Urine HCG, Qual - EKG/XRAY/CT CT Ordered: Yes - abd/p-acute appendicitis no perforation,positive fluid Departure - Departure Clinical Impression: Abdominal pain Qualifiers: Abdominal location: lower abdomen, unspecified Qualified Code(s): R10.30 - Lower abdominal pain, unspecified Appendicitis, acute Qualifiers: Acute appendicitis type: with localized peritonitis Qualified Code(s): K35.3 - Acute appendicitis with localized peritonitis Time of Disposition: 15:28 Disposition: Transfer to Hospital Condition: Good Departure Forms: Patient Portal Self Enrollment Home Medications: Ambulatory Orders Albuterol Sulfate [Proair Hfa] 2 puff INH Q6H PRN 11/21/16 Control Pill 11/21/16 Ondansetron Odt [Zofran ODT] 8 mg PO Q6HR PRN #15 tab 11/21/16 Pantoprazole Tablet [Protonix] 40 mg PO ACBK #14 tab 11/21/16 Transfer to Outside Facility - Transfer Information Accepting Provider:: Dr.Jeremy Valladares-ROSINA / Accepting Facility: [facility] Reason for Transfer: no or crew
[2016-11-22] MEDS ORDERED: ONDANSETRON INJ 4 MG/2 ML VIAL IV ONE (13:12)
[2016-11-22] MEDS ORDERED: LACTATED RINGERS 1,000 ML IVS ONE (13:12)
--- NOTE | 2016-11-22 14:12 | RAD ---
Examination: XR CHEST 1 VIEW dated 11/22/2016 1:12 PM CDT History: pain Comparison: 03/29/2016 Technique: Frontal view of the chest Findings: The lungs are clear bilaterally. No pneumothorax or pleural effusion. The cardiomediastinal silhouette is within normal limits. Impression: No acute disease. Electronically signed by: Nas Chiang MD 11/22/2016 2:11 PM CDT
--- NOTE | 2016-11-22 14:43 | CT ---
EXAM DESCRIPTION: Abdomen/Pelvis w/Contrast CLINICAL HISTORY: 20 years Female, pain COMPARISON: None. TECHNIQUE: Contiguous axial CT images of the abdomen and pelvis were acquired after the administration of intravenous contrast. Coronal and sagittal reformatted images are provided. This exam was performed according to our departmental dose-optimization program which includes use of Automated Exposure Control, adjustment of the mA and/or kV according to patient size and/or use of iterative reconstruction technique. FINDINGS: Chest base: Unremarkable. Liver: Unremarkable. Gallbladder: Unremarkable. Spleen: Unremarkable. Adrenals: Unremarkable. Pancreas: Unremarkable. Right Kidney: No renal stones or hydronephrosis. Left Kidney: No renal stones or hydronephrosis. Aorta and branch vessels: Unremarkable. Lymph nodes: No lymphadenopathy. Bowels: No obstruction. Colon: No wall thickening. Appendix: The appendix is enlarged measuring 10 mm in the largest transverse dimension. Additionally, there is thickening of the appendix wall with mucosal hyperenhancement. Peritoneum: A small amount of free fluid is seen within the pelvis. Pelvic organs: Dominant follicle on the right measuring 3 cm. Reproductive organs are otherwise unremarkable. Bladder: Unremarkable. Bones and soft tissues: No acute osseous or soft tissue abnormalities. IMPRESSION: Findings of uncomplicated acute appendicitis. Electronically signed by: Nas Chiang MD 11/22/2016 2:42 PM CDT
[2016-11-22] MEDS ORDERED: cefOXitin SODIUM 2 GM in SODIUM CHL 0.9% 50ML MIN-BAG+ 50 ML IVPB ONE (15:16)
[2016-11-22] MEDS ORDERED: cefOXitin SODIUM 2 GM INJ IVPB ONE (15:32)
[2016-11-22] MEDS ORDERED: SODIUM CHL 0.9% 50ML MIN-BAG+ 50 ML IVPB ONE (15:32)
[2016-11-22 16:15] VITALS: BP 113/65; TEMP 100.6; O2SAT 98
== END 2016-11-22 16:14 | disposition short-term general hospital (02) ==
LOC: ER 12:16
DX: K35.3 Acute appendicitis with localized peritonitis (principal)
CPT/HCPCS: 36415; 71010; 74177; 80053; 81001; 81025; 83605; 83690; 85025; J0694; J2405; J7050; J7120

== ENCOUNTER 2016-11-25 19:02 | Emergency (ER) | payer SELFPAY ==
[2016-11-25 19:18] VITALS: TEMP 97.5
--- NOTE | 2016-11-25 19:18 | ED.PDOC ---
History of Present Illness - General Chief Complaint: Respiratory Problem Stated Complaint: Shortness of breathe Time Seen by Provider: 11/25/16 19:03 Source: patient, RN notes reviewed, Vital Signs reviewed Exam Limitations: no limitations - History of Present Illness Initial Comments: Patient comes in with SOB that started this morning and has just gotten progressively worse. She tried her rescue inhaler w/o improvement. She had an appendectomy on 11/22/16. She called [facility] and they advised she come to the ER to be sure it is not a PE. Timing/Duration: 7-24 hours Severity: moderate Activities at Onset: none Possible Cause: occasional episodes - has asthma Improving Factors: nothing Worsening Factors: nothing Associated Symptoms: denies symptoms Allergies/Adverse Reactions: Allergies Soap Adverse Reaction (Intermediate, Verified 06/30/16 20:21) Rash Oxytocin [From Pitocin] Adverse Reaction (Verified 06/30/16 20:21) ADHESIVE Adverse Reaction (Uncoded 06/30/16 20:21) Home Medications: Ambulatory Orders Albuterol Sulfate [Proair Hfa] 2 puff INH Q6H PRN 11/21/16 Control Pill 11/21/16 Ondansetron Odt [Zofran ODT] 8 mg PO Q6HR PRN #15 tab 11/21/16 Pantoprazole Tablet [Protonix] 40 mg PO ACBK #14 tab 11/21/16 Review of Systems - Review of Systems Constitutional: States: no symptoms reported Respiratory: States: see HPI, short of breath. Denies: cough, wheezing Cardiology: States: no symptoms reported Gastrointestinal/Abdominal: States: no symptoms reported Musculoskeletal: States: no symptoms reported Skin: States: no symptoms reported All other Systems: No Change from Baseline Past Medical History (General) - Patient Medical History Hx Seizures: No Hx Stroke: No Hx Dementia: No Hx Asthma: Yes Hx of COPD: No Hx Cardiac Disorders: No Hx Congestive Heart Failure: No Hx Pacemaker: No Hx Hypertension: No Hx Thyroid Disease: No Hx Diabetes: No - hypoglycemia Hx Gastroesophageal Reflux: No Hx Renal Disease: No Hx Cancer: No Hx of HIV: No Hx Hepatitis C: No Hx MRSA: No - Vaccination History Hx Tetanus, Diphtheria Vaccination: No Hx Influenza Vaccination: No Hx Pneumococcal Vaccination: No - Social History Hx Tobacco Use: No Hx Chewing Tobacco Use: No Hx Alcohol Use: No Hx Substance Use: No Hx Substance Use Treatment: No Hx Depression: No Hx Physical Abuse: No Hx Emotional Abuse: No Hx Suspected Abuse: No - Female History Hx Last Menstrual Period: 09/23/15 Patient : No Expected Date of Delivery:: 07/06/16 Hx Gestational Age: 25 Family Medical History - Family History Mother Family History: Unknown Living Status: Still Living Hx Family Asthma: Yes Hx Family Hypertension: Yes Hx Family;Other: Seizures Physical Exam - Physical Exam General Appearance: Alert, No apparent distress, Well Developed, Well Groomed, Well Hydrated, Well Nourished Neck: supple, normal inspection Respiratory: lungs clear, normal breath sounds, other - Appears SOB, O2 saturation 100% on room air Cardiovascular/Chest: regular rate, rhythm, no edema, no gallop, no murmur Extremity: normal range of motion, normal inspection Neurologic: alert, normal mood/affect, oriented x 3 Skin Exam: normal color, warm/dry Progress - Progress Progress: 11/25/16 21:[address] is normal. SOB resolved after IV Solu-Medrol 125mg and Duo-neb - Results/Orders Results/Orders: Laboratory Tests 11/25/16 11/25/16 11/25/16 19:35 19:35 19:35 WBC 5.3 RBC 4.28 Hgb 12.3 Hct 36.8 MCV 86.0 MCH 28.7 MCHC 33.4 RDW 13.7 Plt Count 319 MPV 8.3 Absolute Neuts (auto) 2.40 Absolute Lymphs (auto) 2.00 Absolute Monos (auto) 0.70 Absolute Eos (auto) 0.20 Absolute Basos (auto) 0.10 Neutrophils % 44.3 Lymphocytes % 37.0 Monocytes % 13.5 H Eosinophils % 4.2 Basophils % 1.0 D-Dimer, Quantitative 607 H* Sodium 138 Potassium 3.1 L Chloride 105 Carbon Dioxide 25 Anion Gap 11.1 L BUN 9 Creatinine 0.56 L BUN/Creatinine Ratio 16.1 Random Glucose 94 Serum Osmolality 274.1 L Calcium 9.0 Total Bilirubin 0.2 AST 37 ALT 56 Alkaline Phosphatase 119 Serum Total Protein 7.1 Albumin 3.6 Globulin 3.5 Albumin/Globulin Ratio 1.0 L - EKG/XRAY/CT XRAY: chest - No acute findings per Rad CT Ordered: Yes - No pulmonary embolism Departure - Departure Clinical Impression: Asthma with exacerbation Qualifiers: Asthma severity: mild intermittent Qualified Code(s): J45.21 - Mild intermittent asthma with (acute) exacerbation Time of Disposition: 21:08 Disposition: Discharge to Home or Self Care Condition: Good Departure Forms: ED Discharge - Pt. Copy, Patient Portal Self Enrollment Instructions: DI for Asthma -- Adult Diet: resume usual diet Activity: increase activity as tolerated Home Medications: Ambulatory Orders Albuterol Sulfate [Proair Hfa] 2 puff INH Q6H PRN 11/21/16 Control Pill 11/21/16 Ondansetron Odt [Zofran ODT] 8 mg PO Q6HR PRN #15 tab 11/21/16 Pantoprazole Tablet [Protonix] 40 mg PO ACBK #14 tab 11/21/16
--- NOTE | 2016-11-25 19:44 | RAD ---
EXAM DESCRIPTION: Chest,2 Views CLINICAL HISTORY: SOB COMPARISON: November 22, 2016 FINDINGS: Cardiac silhouette is within normal limits. There is no focal parenchymal or pleural disease. There is no acute osseous process visualized. IMPRESSION: No evidence of acute cardiopulmonary disease. Electronically signed by: Aiden Leyva MD 11/25/2016 7:42 PM CDT
--- NOTE | 2016-11-25 20:30 | CT ---
EXAM: CT chest angiogram with contrast. INDICATION: Chest pain. TECHNIQUE: Contiguous axial CT images of the chest. Intravenous contrast: Present. Protocol: Pulmonary embolus (PE) protocol angiogram. Reformats: MIPs and MPRs created and utilized. DLP 477 mGy-cm. This exam was performed according to our departmental dose-optimization program, which includes automated exposure control, adjustment of the mA and/or kV according to patient size and/or use of iterative reconstruction technique. Note: LV=left ventricle. RV=right ventricle. COMPARISON: None. FINDINGS: Upper abdomen: Partially imaged. Thoracic aorta: Unremarkable. Heart: No right atrial thrombus. RV/LV ratio: Within normal limits. Pulmonary arteries: Technical: Adequate opacification to the level of the segmental vessels. Pulmonary embolus: No low-density filling defect to suggest acute PE. Overall embolic burden: None. Mediastinum: No pathologic sized middle mediastinal lymphadenopathy. Tracheobronchial tree: Unremarkable. Lungs: Lobar consolidation: Negative. Pleural effusion: Negative. Pneumothorax: Negative. Other: Negative. Bones: Unremarkable. IMPRESSION: 1. No CT evidence of acute PE. Electronically signed by: Nikolas Louise MD 11/25/2016 8:28 PM CDT Workstation: [employer]
[2016-11-25] MEDS ORDERED: IPRATROPIUM/ALBUTEROL 3 ML VIAL NEB ONE (20:31)
[2016-11-25] MEDS ORDERED: methylPREDNISolone SODIUM SUC 125 MG/2 ML VIAL IV ONE (20:31)
[2016-11-25 20:33] VITALS: O2SAT 99
[2016-11-25 21:19] VITALS: BP 107/60
== END 2016-11-25 21:20 | disposition home or self-care (01) ==
LOC: ER 19:02
DX: J45.21 Mild intermittent asthma with (acute) exacerbation (principal); Z88.8 Allergy status to other drugs, medicaments and biological substances; Z79.899 Other long term (current) drug therapy
CPT/HCPCS: 36415; 71020; 71275; 80053; 85025; 85379; 94640; J2930; J7620

== ENCOUNTER 2016-12-20 08:50 | Emergency (ER) | payer SELFPAY ==
[2016-12-20 09:02] VITALS: TEMP 97.9
[2016-12-20] MEDS ORDERED: IBUPROFEN 200 MG TAB PO ONE (09:11)
--- NOTE | 2016-12-20 09:14 | ED.PDOC ---
History of Present Illness - General Chief Complaint: ENT Problem Stated Complaint: sore throat,headache Time Seen by Provider: 12/20/16 09:08 Source: patient, RN notes reviewed, Vital Signs reviewed Exam Limitations: no limitations - History of Present Illness Initial Comments: Patient comes in with c/o sore throat since yesterday. Child diagnosed with Strep on 12/17/16. + VALLADARES and chills. Throat is worse with swallowing. Timing/Duration: gradual, yesterday EENT Location: throat Prearrival Treatment: over the counter meds Improving Factors: nothing Worsening Factors: other - swallowing Associated Symptoms: nasal congestion/drainage, sore throat Allergies/Adverse Reactions: Allergies Soap Adverse Reaction (Intermediate, Verified 06/30/16 20:21) Rash Oxytocin [From Pitocin] Adverse Reaction (Verified 06/30/16 20:21) ADHESIVE Adverse Reaction (Uncoded 06/30/16 20:21) Home Medications: Ambulatory Orders Albuterol Sulfate [Proair Hfa] 2 puff INH Q6H PRN 11/21/16 Norgestimate-Ethinyl Estradiol [Ortho Tri-Cyclen] 1 tab PO DAILY 12/20/16 Review of Systems - Review of Systems Constitutional: States: chills. Denies: fever EENTM: States: nose congestion, throat pain. Denies: ear pain Respiratory: States: no symptoms reported, short of breath. Denies: cough Cardiology: States: no symptoms reported Gastrointestinal/Abdominal: States: no symptoms reported Musculoskeletal: States: no symptoms reported Skin: States: no symptoms reported Neurological: States: headache All other Systems: No Change from Baseline Past Medical History (General) - Patient Medical History Hx Seizures: No Hx Stroke: No Hx Dementia: No Hx Asthma: Yes Hx of COPD: No Hx Cardiac Disorders: No Hx Congestive Heart Failure: No Hx Pacemaker: No Hx Hypertension: No Hx Thyroid Disease: No Hx Diabetes: No Hx Gastroesophageal Reflux: No Hx Renal Disease: No Hx Cancer: No Hx of HIV: No Hx Hepatitis C: No Hx MRSA: No Surgical History: appendectomy - Vaccination History Hx Tetanus, Diphtheria Vaccination: No Hx Influenza Vaccination: No Hx Pneumococcal Vaccination: No - Social History Hx Tobacco Use: No Hx Chewing Tobacco Use: No Hx Alcohol Use: No Hx Substance Use: No Hx Substance Use Treatment: No Hx Depression: No Hx Physical Abuse: No Hx Emotional Abuse: No Hx Suspected Abuse: No - Female History Patient is a Female of Child Bearing Age (10 -59 yrs old): Yes Hx Last Menstrual Period: 09/23/15 Patient : No Expected Date of Delivery:: 07/06/16 Hx Gestational Age: 25 Family Medical History - Family History Mother Family History: Unknown Living Status: Still Living Hx Family Asthma: Yes Hx Family Hypertension: Yes Hx Family;Other: Seizures Physical Exam - Physical Exam General Appearance: Alert, Comfortable, No apparent distress, Well Developed, Well Groomed, Well Hydrated, Well Nourished Eye Exam: bilateral normal Ear Exam: bilateral ear: auricle normal, canal normal, TM normal Nasal Exam: other - congested Throat Exam: other - Pharyngeal erythema Neck: non-tender, full range of motion, supple, lymphadenopathy (R), lymphadenopathy (L) Cardiovascular/Respiratory: regular rate, rhythm, no M/R/G, normal breath sounds , no respiratory distress Neurologic: alert, normal mood/affect, oriented x 3 Skin Exam: normal color, warm/dry Comments: Vital Signs 12/20/16 08:59 Temperature 97.9 F Pulse Rate [ 84 Left Brachial] Respiratory 16 Rate Blood Pressure 97/66 [Left Arm] O2 Sat by Pulse 97 Oximetry Progress - Progress Progress: 12/20/16 09:28 Negative Rapid strep. Will treat conservatively unless culture comes back positive. - Results/Orders Results/Orders: Laboratory Tests 12/20/16 09:02 Group A Strep DNA Negative Departure - Departure Clinical Impression: Acute pharyngitis Qualifiers: Pharyngitis/tonsillitis etiology: unspecified etiology Qualified Code(s): J02.9 - Acute pharyngitis, unspecified Time of Disposition: 09:29 Disposition: Discharge to Home or Self Care Condition: Good Departure Forms: ED Discharge - Pt. Copy, Patient Portal Self Enrollment Instructions: DI for Pharyngitis/Tonsillopharyngitis -- Adult Diet: resume usual diet Activity: increase activity as tolerated Referrals: Isabell Wiley NP [Primary Care Provider] - 1-2 Weeks Home Medications: Ambulatory Orders Albuterol Sulfate [Proair Hfa] 2 puff INH Q6H PRN 11/21/16 Norgestimate-Ethinyl Estradiol [Ortho Tri-Cyclen] 1 tab PO DAILY 12/20/16 Additional Instructions: Tylenol/Ibuprofen and gargle warm salt water.
[2016-12-20 09:37] VITALS: BP 111/75; O2SAT 98
== END 2016-12-20 09:37 | disposition home or self-care (01) ==
LOC: ER 08:50
DX: J02.9 Acute pharyngitis, unspecified (principal); Z88.8 Allergy status to other drugs, medicaments and biological substances

== ENCOUNTER 2016-12-20 20:35 | Emergency (ER) | payer SELFPAY ==
[2016-12-20 21:16] VITALS: O2SAT 97
[2016-12-20] MEDS ORDERED: ACETAMINOPHEN W/COD #3 TAB 1 EA TAB PO ONE (21:45)
--- NOTE | 2016-12-20 22:42 | ED.PDOC ---
History of Present Illness - General Chief Complaint: Headache Stated Complaint: headache Time Seen by Provider: 12/20/16 20:37 Source: patient, RN notes reviewed, Vital Signs reviewed Exam Limitations: no limitations - History of Present Illness Initial Comments: Patient comes in with c/o VALLADARES all day. Not resolving w/ OTC medications. She was seen this morning & diagnosed with pharyngitis (negative rapid strep). VALLADARES is temporal and occipital. Can't really describe what it feels like. Timing/Duration: 24 hours Quality: moderate, constant Head Injury Location: temporal, occipital Recent Head Trauma: no recent headache/trauma Improving Factors: nothing Worsening Factors: nothing Associated Symptoms: denies symptoms Allergies/Adverse Reactions: Allergies Soap Adverse Reaction (Intermediate, Verified 06/30/16 20:21) Rash Oxytocin [From Pitocin] Adverse Reaction (Verified 06/30/16 20:21) ADHESIVE Adverse Reaction (Uncoded 06/30/16 20:21) Home Medications: Ambulatory Orders Albuterol Sulfate [Proair Hfa] 2 puff INH Q6H PRN 11/21/16 Norgestimate-Ethinyl Estradiol [Ortho Tri-Cyclen] 1 tab PO DAILY 12/20/16 Review of Systems - Review of Systems Constitutional: States: no symptoms reported EENTM: States: throat pain Respiratory: States: no symptoms reported Cardiology: States: no symptoms reported Musculoskeletal: States: no symptoms reported Skin: States: no symptoms reported Neurological: States: headache All other Systems: No Change from Baseline Past Medical History (General) - Patient Medical History Hx Seizures: No Hx Stroke: No Hx Dementia: No Hx Asthma: Yes Hx of COPD: No Hx Cardiac Disorders: No Hx Congestive Heart Failure: No Hx Pacemaker: No Hx Hypertension: No Hx Thyroid Disease: No Hx Diabetes: No Hx Gastroesophageal Reflux: No Hx Renal Disease: No Hx Cancer: No Hx of HIV: No Hx Hepatitis C: No Hx MRSA: No Surgical History: appendectomy - Vaccination History Hx Tetanus, Diphtheria Vaccination: No Hx Influenza Vaccination: No Hx Pneumococcal Vaccination: No - Social History Hx Tobacco Use: No Hx Chewing Tobacco Use: No Hx Alcohol Use: No Hx Substance Use: No Hx Substance Use Treatment: No Hx Depression: No Hx Physical Abuse: No Hx Emotional Abuse: No Hx Suspected Abuse: No - Female History Hx Last Menstrual Period: 09/23/15 Patient : No Expected Date of Delivery:: 07/06/16 Hx Gestational Age: 25 Family Medical History - Family History Mother Family History: Unknown Living Status: Still Living Hx Family Asthma: Yes Hx Family Hypertension: Yes Hx Family;Other: Seizures Physical Exam - Physical Exam General Appearance: Alert, Comfortable, No apparent distress, Well Developed, Well Groomed, Well Hydrated, Well Nourished Eyes, Ears, Nose, Throat Exam: PERRL/EOMI Neck: full range of motion, supple, normal inspection Respiratory: no respiratory distress Extremity: normal range of motion, non-tender 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, 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: normal hearing, normal speech, PERRL, other - CN 2-12 are grossly intact Coordination/Gait: normal gait Motor/Sensory: no motor deficit, no sensory deficit Skin Exam: warm/dry, normal color Comments: Vital Signs 12/20/16 21:14 Temperature 100.2 F H Pulse Rate [ 94 H monitor] Respiratory 16 Rate Blood Pressure 104/69 [Right Arm] O2 Sat by Pulse 97 Oximetry Progress - Progress Progress: 12/20/16 22:44 Tylenol #3 given Departure - Departure Clinical Impression: Headache Qualifiers: Headache type: unspecified Headache chronicity pattern: acute headache Intractability: not intractable Qualified Code(s): R51 - Headache Time of Disposition: 22:45 Disposition: Discharge to Home or Self Care Condition: Good Departure Forms: ED Discharge - Pt. Copy, Patient Portal Self Enrollment Diet: resume usual diet Activity: increase activity as tolerated Referrals: Isabell Wiley NP [Primary Care Provider] - 1-2 Weeks Home Medications: Ambulatory Orders Albuterol Sulfate [Proair Hfa] 2 puff INH Q6H PRN 11/21/16 Norgestimate-Ethinyl Estradiol [Ortho Tri-Cyclen] 1 tab PO DAILY 12/20/16
[2016-12-20] MEDS ORDERED: ACETAMINOPHEN W/COD #3 TAB (ER Disp) PO ONE (22:44)
[2016-12-20 23:07] VITALS: BP 112/74; TEMP 98.2
== END 2016-12-20 23:07 | disposition home or self-care (01) ==
LOC: ER 20:35
DX: R51 Headache (principal); Z88.8 Allergy status to other drugs, medicaments and biological substances

== ENCOUNTER 2016-12-25 15:09 | Emergency (ER) | payer SELFPAY ==
[2016-12-25] MEDS ORDERED: IPRATROPIUM/ALBUTEROL 3 ML VIAL NEB ONE (15:29)
[2016-12-25 15:51] VITALS: O2SAT 99
[2016-12-25 16:00] VITALS: TEMP 98.7
--- NOTE | 2016-12-25 16:03 | ED.PDOC ---
History of Present Illness - General Chief Complaint: Respiratory Problem Stated Complaint: cough /hoarseness Time Seen by Provider: 12/25/16 15:28 Source: patient Exam Limitations: no limitations - History of Present Illness Comments: Angie Douglas 21 y/o female stated had mildly productive cough and nasal congestion and hoarseness the last 4 days no fever or chills. Has history of bronchial asthma Timing/Duration: other - 4 days Cough Quality/Degree: moderate, productive cough Possible Cause: chronic episodes, allergen exposure Improving Factors: nothing Worsening Factors: nothing Associated Symptoms: other - see hpi Respiratory Risk Factors: exposure to allergen Allergies/Adverse Reactions: Allergies Soap Adverse Reaction (Intermediate, Verified 06/30/16 20:21) Rash Oxytocin [From Pitocin] Adverse Reaction (Verified 06/30/16 20:21) ADHESIVE Adverse Reaction (Uncoded 06/30/16 20:21) Home Medications: Ambulatory Orders Albuterol Sulfate [Proair Hfa] 2 puff INH Q6H PRN 11/21/16 Norgestimate-Ethinyl Estradiol [Ortho Tri-Cyclen] 1 tab PO DAILY 12/20/16 Albuterol Inhaler [Ventolin Hfa Inhaler] 108 mcg IN Q4HR PRN #1 inh 12/25/16 Benzonatate Perles [Tessalon Perles] 200 mg PO BID #30 cap 12/25/16 predniSONE 20 mg PO DAILY #7 tab 12/25/16 Review of Systems - Review of Systems Constitutional: States: no symptoms reported EENTM: States: see HPI, nose congestion Respiratory: States: see HPI Cardiology: States: no symptoms reported Gastrointestinal/Abdominal: States: no symptoms reported Genitourinary: States: no symptoms reported Musculoskeletal: States: no symptoms reported Past Medical History (General) - Patient Medical History Hx Seizures: No Hx Stroke: No Hx Dementia: No Hx Asthma: Yes Hx of COPD: No Hx Cardiac Disorders: No Hx Congestive Heart Failure: No Hx Pacemaker: No Hx Hypertension: No Hx Thyroid Disease: No Hx Diabetes: No Hx Gastroesophageal Reflux: No Hx Renal Disease: No Hx Cancer: No Hx of HIV: No Hx Hepatitis C: No Hx MRSA: No Surgical History: other - - Vaccination History Hx Tetanus, Diphtheria Vaccination: No Hx Influenza Vaccination: No Hx Pneumococcal Vaccination: No - Social History Hx Tobacco Use: No Hx Chewing Tobacco Use: No Hx Alcohol Use: No Hx Substance Use: No Hx Substance Use Treatment: No Hx Depression: No Hx Physical Abuse: No Hx Emotional Abuse: No Hx Suspected Abuse: No - Female History Hx Last Menstrual Period: 11/24/16 Patient : No Family Medical History - Family History Mother Family History: Unknown Living Status: Still Living Hx Family Asthma: Yes Hx Family Hypertension: Yes Hx Family;Other: Seizures Physical Exam - Physical Exam General Appearance: Alert, No apparent distress Eye Exam: bilateral normal ENT Exam: hearing grossly normal, TMs normal, pharynx normal, nasal congestion, nasal drainage Neck: non-tender, full range of motion, supple, normal inspection, trachea midline Respiratory: chest non-tender, wheezing Cardiovascular/Chest: normal peripheral pulses, regular rate, rhythm, no murmur Gastrointestinal/Abdominal: non tender, soft, no organomegaly Extremity: no pedal edema, no calf tenderness Neurologic: alert, normal mood/affect, oriented x 3 Skin Exam: normal color, warm/dry Progress - Progress Progress: 12/25/16 16:10 Last Vital Signs Temp 98.7 F 12/25/16 15:12 Pulse 99 H 12/25/16 15:49 Resp 18 12/25/16 15:49 BP 121/72 12/25/16 15:12 Pulse Ox 99 12/25/16 15:49 - EKG/XRAY/CT XRAY: chest - no acute abnormalities Departure - Departure Clinical Impression: Laryngitis Asthma Qualifiers: Asthma severity: mild intermittent Asthma complication type: with acute exacerbation Qualified Code(s): J45.21 - Mild intermittent asthma with (acute) exacerbation Time of Disposition: 16:41 Disposition: Discharge to Home or Self Care Condition: Fair Departure Forms: ED Discharge - Pt. Copy, Patient Portal Self Enrollment Instructions: DI for Asthma -- Adult Referrals: Isabell Wiley NP [Primary Care Provider] - 1-2 Weeks Prescriptions: Albuterol Inhaler [Ventolin Hfa Inhaler] 108 mcg IN Q4HR PRN #1 inh PRN Reason: Wheezing Benzonatate Perles [Tessalon Perles] 200 mg PO BID #30 cap predniSONE 20 mg PO DAILY #7 tab Home Medications: Ambulatory Orders Albuterol Sulfate [Proair Hfa] 2 puff INH Q6H PRN 11/21/16 Norgestimate-Ethinyl Estradiol [Ortho Tri-Cyclen] 1 tab PO DAILY 12/20/16 Albuterol Inhaler [Ventolin Hfa Inhaler] 108 mcg IN Q4HR PRN #1 inh 12/25/16 Benzonatate Perles [Tessalon Perles] 200 mg PO BID #30 cap 12/25/16 predniSONE 20 mg PO DAILY #7 tab 12/25/16 Additional Instructions: Return to emergency room as needed May use Afrin Nose spray (over the counter) 2 sprays each nostril 3 days on 3 days off for nasal congestion
[2016-12-25] MEDS ORDERED: DEXAMETHASONE INJ 4 MG/ML VIAL IM ONE (16:10)
[2016-12-25] MEDS ORDERED: predniSONE 20 MG TAB PO ONE (16:10)
--- NOTE | 2016-12-25 16:23 | RAD ---
EXAM DESCRIPTION: Chest,1 View CLINICAL HISTORY: cough COMPARISON: November 25, 2016 IMPRESSION: Single AP portable upright view of the chest shows cardiac silhouette and pulmonary vasculature to be within normal limits. Lungs are normally aerated and clear. No obvious pleural effusion or pneumothorax is seen. Electronically signed by: Horace Serrano MD 12/25/2016 4:22 PM [facility]
[2016-12-25] MEDS ORDERED: LEVALBUTEROL NEBS 1.25 MG/3 ML VIAL NEB ONE (16:25)
[2016-12-25 17:21] VITALS: BP 117/62
== END 2016-12-25 17:16 | disposition home or self-care (01) ==
LOC: ER 15:09
DX: J04.0 Acute laryngitis (principal); J45.21 Mild intermittent asthma with (acute) exacerbation; Z79.899 Other long term (current) drug therapy; Z88.8 Allergy status to other drugs, medicaments and biological substances
CPT/HCPCS: 36415; 71010; 81025; 94640; J1100; J7512; J7614; J7620

== ENCOUNTER 2017-01-15 23:04 | Emergency (ER) | payer SELFPAY ==
--- NOTE | 2017-01-15 23:51 | ED.PDOC ---
History of Present Illness - General Chief Complaint: General Stated Complaint: adb and back pain Time Seen by Provider: 01/15/17 23:34 - History of Present Illness Initial Comments: Angie Douglas 21 y/o female stated that she had sex with boyfriend miguel felt something painful on her c section incision.Denies vaginal bleeding,dysuria, nausea/vomiting Timing/Duration: 1-3 hours Severity: mild Improving Factors: nothing Worsening Factors: movement Associated Symptoms: other - see hpi Allergies/Adverse Reactions: Allergies Soap Adverse Reaction (Intermediate, Verified 01/15/17 23:55) Rash Oxytocin [From Pitocin] Adverse Reaction (Verified 01/15/17 23:55) ADHESIVE Adverse Reaction (Uncoded 06/30/16 20:21) Home Medications: Ambulatory Orders Albuterol Sulfate [Proair Hfa] 2 puff INH Q6H PRN 11/21/16 Norgestimate-Ethinyl Estradiol [Ortho Tri-Cyclen] 1 tab PO DAILY 12/20/16 Benzonatate Perles [Tessalon Perles] 200 mg PO BID #30 cap 12/25/16 RX: Albuterol Inhaler [Ventolin Hfa Inhaler] 108 mcg IN Q4HR PRN #1 inh RX: predniSONE 20 mg PO DAILY #7 tab 12/25/16 Review of Systems - Review of Systems All other Systems: Reviewed and Negative, No Change from Baseline Past Medical History (General) - Patient Medical History Hx Seizures: No Hx Stroke: No Hx Dementia: No Hx Asthma: Yes Hx of COPD: No Hx Cardiac Disorders: No Hx Congestive Heart Failure: No Hx Pacemaker: No Hx Hypertension: No Hx Thyroid Disease: No Hx Diabetes: No Hx Gastroesophageal Reflux: No Hx Renal Disease: No Hx Cancer: No Hx of HIV: No Hx Hepatitis C: No Hx MRSA: No Surgical History: other - - Vaccination History Hx Tetanus, Diphtheria Vaccination: No Hx Influenza Vaccination: No Hx Pneumococcal Vaccination: No - Social History Hx Tobacco Use: No Hx Chewing Tobacco Use: No Hx Alcohol Use: No Hx Substance Use: No Hx Substance Use Treatment: No Hx Depression: No Hx Physical Abuse: No Hx Emotional Abuse: No Hx Suspected Abuse: No - Female History Hx Last Menstrual Period: 11/24/16 Patient : No Family Medical History - Family History Mother Family History: Unknown Living Status: Still Living Hx Family Asthma: Yes Hx Family Hypertension: Yes Hx Family;Other: Seizures Physical Exam - Physical Exam General Appearance: Alert, No apparent distress Eye Exam: bilateral normal Ears, Nose, Throat: hearing grossly normal, normal ENT inspection Neck: non-tender, supple Respiratory: chest non-tender, lungs clear, no respiratory distress Cardiovascular/Chest: regular rate, rhythm, no murmur Peripheral Pulses: radial,right: 2+, radial,left: 2+ Gastrointestinal/Abdominal: normal bowel sounds, non tender, soft, no organomegaly, other - no hernias abdominal wall noted incision intact Extremity: no pedal edema Neurologic: no motor/sensory deficits, alert, oriented x 3 Skin Exam: normal color, warm/dry Progress - Progress Progress: 01/16/17 00:00 Last Vital Signs Temp 96.8 F L 01/15/17 23:45 Pulse 83 01/15/17 23:45 Resp 20 01/15/17 23:45 BP 118/72 01/15/17 23:45 Pulse Ox 97 01/15/17 23:45 Departure - Departure Clinical Impression: Pain at surgical incision Time of Disposition: 00:01 Disposition: Discharge to Home or Self Care Condition: Good Departure Forms: ED Discharge - Pt. Copy, Patient Portal Self Enrollment Referrals: Isabell Wiley NP [Primary Care Provider] - 1-2 Weeks Home Medications: Ambulatory Orders Albuterol Sulfate [Proair Hfa] 2 puff INH Q6H PRN 11/21/16 Norgestimate-Ethinyl Estradiol [Ortho Tri-Cyclen] 1 tab PO DAILY 12/20/16 Benzonatate Perles [Tessalon Perles] 200 mg PO BID #30 cap 12/25/16 RX: Albuterol Inhaler [Ventolin Hfa Inhaler] 108 mcg IN Q4HR PRN #1 inh RX: predniSONE 20 mg PO DAILY #7 tab 12/25/16 Additional Instructions: May take Aleve 2 tablets 3 x a day for pain as needed;Follow up with primary Md 01/18/2017 call for appointment as needed
[2017-01-16] MEDS ORDERED: HYDROcodone 10MG/APAP 325MG 1 EA TAB PO ONE
[2017-01-16 01:06] VITALS: BP 116/71; TEMP 98.1; O2SAT 94
== END 2017-01-16 01:00 | disposition home or self-care (01) ==
LOC: ER 23:04
DX: G89.18 Other acute postprocedural pain (principal); R10.9 Unspecified abdominal pain; Z79.899 Other long term (current) drug therapy; Z88.8 Allergy status to other drugs, medicaments and biological substances

== ENCOUNTER → 2017-01-22 | Outpatient (CLI) | payer SELFPAY ==
--- NOTE | 2017-01-22 10:41 | RAD ---
EXAM DESCRIPTION: Chest,2 Views CLINICAL HISTORY: 21 years Female, ATYPICAL CHEST PAIN COMPARISON: 12/25/2016 IMPRESSION: Heart size and pulmonary vascularity are within normal limits. There is no airspace consolidation, pleural effusion, or pneumothorax. No acute osseous abnormality. Electronically signed by: Jacky Odom MD 01/22/2017 10:39 AM [facility]
== END ==
LOC: YCFC.O 10:20
PROVIDERS: ATTEND Nurse Practitioner Family
DX: R07.89 Other chest pain (principal)

== ENCOUNTER 2017-02-04 18:59 | Emergency (ER) | payer SELFPAY ==
[2017-02-04 20:05] VITALS: TEMP 101.1; O2SAT 99
[2017-02-04] MEDS ORDERED: ACETAMINOPHEN 325 MG TAB ONE (20:06)
[2017-02-04] MEDS ORDERED: ACETAMINOPHEN 325 MG TAB PO ONE (20:10)
[2017-02-04] MEDS ORDERED: KETOROLAC TROMETHAMINE INJ 60 MG/2 ML VIAL IM ONE (20:53)
[2017-02-04] MEDS ORDERED: PENICILLIN BENZATHINE 1.2 MU 1.2 MU/2 ML SYG IM ONE (20:53)
--- NOTE | 2017-02-04 20:57 | ED.PDOC ---
History of Present Illness - General Chief Complaint: ENT Problem Stated Complaint: sore throat, fever Time Seen by Provider: 02/04/17 20:51 Source: patient, RN notes reviewed, Vital Signs reviewed Additional Information: Sore throat and fever. Pt concerned for strep or flu. - History of Present Illness Timing/Duration: gradual Severity: moderate EENT Location: throat Prearrival Treatment: over the counter meds Improving Factors: nothing Worsening Factors: other - swallowing Associated Symptoms: fever, malaise, poor fluid intake Allergies/Adverse Reactions: Allergies Soap Adverse Reaction (Intermediate, Verified 01/15/17 23:55) Rash Oxytocin [From Pitocin] Adverse Reaction (Verified 01/15/17 23:55) ADHESIVE Adverse Reaction (Uncoded 06/30/16 20:21) Home Medications: Ambulatory Orders Albuterol Sulfate [Proair Hfa] 2 puff INH Q6H PRN 11/21/16 Norgestimate-Ethinyl Estradiol [Ortho Tri-Cyclen] 1 tab PO DAILY 12/20/16 Albuterol Inhaler [Ventolin Hfa Inhaler] 108 mcg IN Q4HR PRN #1 inh 12/25/16 Benzonatate Perles [Tessalon Perles] 200 mg PO BID #30 cap 12/25/16 predniSONE 20 mg PO DAILY #7 tab 12/25/16 Review of Systems - Review of Systems Constitutional: States: see HPI, fever EENTM: States: see HPI, throat pain Respiratory: States: no symptoms reported Cardiology: States: no symptoms reported Gastrointestinal/Abdominal: States: no symptoms reported Genitourinary: States: no symptoms reported Musculoskeletal: States: muscle pain Skin: States: no symptoms reported Neurological: States: no symptoms reported Endocrine: States: no symptoms reported Hematologic/Lymphatic: States: no symptoms reported Past Medical History (General) - Patient Medical History Hx Seizures: No Hx Stroke: No Hx Dementia: No Hx Asthma: Yes Hx of COPD: No Hx Cardiac Disorders: No Hx Congestive Heart Failure: No Hx Pacemaker: No Hx Hypertension: No Hx Thyroid Disease: No Hx Diabetes: No Hx Gastroesophageal Reflux: No Hx Renal Disease: No Hx Cancer: No Hx of HIV: No Hx Hepatitis C: No Hx MRSA: No - Vaccination History Hx Tetanus, Diphtheria Vaccination: Yes Hx Influenza Vaccination: Yes Hx Pneumococcal Vaccination: No Immunizations Up to Date: Yes - Social History Hx Tobacco Use: No Hx Chewing Tobacco Use: No Hx Alcohol Use: No Hx Substance Use: No Hx Substance Use Treatment: No Hx Depression: No Hx Physical Abuse: No Hx Emotional Abuse: No Hx Suspected Abuse: No - Female History Patient is a Female of Child Bearing Age (10 -59 yrs old): Yes Hx Last Menstrual Period: 11/24/16 Patient : No Expected Date of Delivery:: 07/06/16 Hx Gestational Age: 25 Family Medical History - Family History Mother Family History: Unknown Living Status: Still Living Hx Family Asthma: Yes Hx Family Hypertension: Yes Hx Family;Other: Seizures Physical Exam - Physical Exam General Appearance: Alert, Comfortable, No apparent distress, Well Developed, Well Groomed, Well Hydrated, Well Nourished Eye Exam: bilateral normal Ear Exam: bilateral ear: TM normal Nasal Exam: normal inspection Throat Exam: other - mild posterior oropharyngeal erythema with postnasal drip. 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 Strep positive, flu negative. Pt opted for Bicillin LA 1.2 Million Units x 1. Pt given strict return precautions and a work excuse. - Results/Orders Results/Orders: Laboratory Results - last 24 hr 02/04/17 19:37 Group A Strep DNA Positive Departure - Departure Clinical Impression: Strep pharyngitis Time of Disposition: 21:15 Disposition: Discharge to Home or Self Care Condition: Good Departure Forms: ED Discharge - Pt. Copy, Patient Portal Self Enrollment Instructions: DI for Strep Throat Referrals: Isabell Wiley NP [Primary Care Provider] - 1-5 Days Home Medications: Ambulatory Orders Albuterol Sulfate [Proair Hfa] 2 puff INH Q6H PRN 11/21/16 Norgestimate-Ethinyl Estradiol [Ortho Tri-Cyclen] 1 tab PO DAILY 12/20/16 Albuterol Inhaler [Ventolin Hfa Inhaler] 108 mcg IN Q4HR PRN #1 inh 12/25/16 Benzonatate Perles [Tessalon Perles] 200 mg PO BID #30 cap 12/25/16 predniSONE 20 mg PO DAILY #7 tab 12/25/16 Additional Instructions: Stay well hydrated. Motrin 800 mg three times a day for pain. Tylenol 650 mg three times a day for pain or fever. Return to ER if condition worsens. Follow-up with Primary Care Provider or go to Urgent Care/ER if condition persists in 3 to 5 days. Work Excuse for Wednesday and Wednesday.
[2017-02-04 21:31] VITALS: BP 113/79
== END 2017-02-04 21:31 | disposition home or self-care (01) ==
LOC: ER 18:59
DX: J02.0 Streptococcal pharyngitis (principal); J45.909 Unspecified asthma, uncomplicated; Z88.5 Allergy status to narcotic agent
CPT/HCPCS: 87502; 87651; J0561; J1885

== ENCOUNTER 2017-02-05 16:24 | Emergency (ER) | payer SELFPAY ==
[2017-02-05 16:41] VITALS: O2SAT 98
[2017-02-05] MEDS ORDERED: SODIUM CHLORIDE 0.9% 1000ML 1,000 ML IVS ONE (16:47)
[2017-02-05] MEDS ORDERED: ONDANSETRON INJ 4 MG/2 ML VIAL IV ONE (16:48)
--- NOTE | 2017-02-05 16:51 | ED.PDOC ---
History of Present Illness - General Chief Complaint: GI Problem Time Seen by Provider: 02/05/17 16:40 Source: patient, RN notes reviewed Exam Limitations: no limitations - History of Present Illness Initial Comments: SHE WAS SEEN YESTERDAY FOR SORE THROAT AND FEVER. SHE WAS NOTED TO HAVE A POSITIVE STREPT SCREEN AND A NEGATIVE INFLUENZA SCREEN. TREATED WITH BICILLIN LA 1.2 MILLION UNITS IM. NOW SHE RETURNS BECASUE SHE HAS VOMITED THREE TIMES AND HAS A LEFT LOWER QUADRANT PAIN. Timing/Duration: 24 hours Severity: moderate Improving Factors: nothing Worsening Factors: eating Associated Symptoms: chest pain, fever/chills Allergies/Adverse Reactions: Allergies Soap Adverse Reaction (Intermediate, Verified 01/15/17 23:55) Rash Oxytocin [From Pitocin] Adverse Reaction (Verified 01/15/17 23:55) ADHESIVE Adverse Reaction (Uncoded 06/30/16 20:21) Home Medications: Ambulatory Orders Albuterol Sulfate [Proair Hfa] 2 puff INH Q6H PRN 11/21/16 Norgestimate-Ethinyl Estradiol [Ortho Tri-Cyclen] 1 tab PO DAILY 12/20/16 Albuterol Inhaler [Ventolin Hfa Inhaler] 108 mcg IN Q4HR PRN #1 inh 12/25/16 Benzonatate Perles [Tessalon Perles] 200 mg PO BID #30 cap 12/25/16 predniSONE 20 mg PO DAILY #7 tab 12/25/16 Ondansetron [Zofran Odt] 4 mg PO Q8HRS #6 tab 02/05/17 Review of Systems - Review of Systems Constitutional: States: chills, fever EENTM: States: throat pain, throat swelling Respiratory: States: no symptoms reported Cardiology: States: chest pain Gastrointestinal/Abdominal: States: abdominal pain, vomiting Genitourinary: States: no symptoms reported Musculoskeletal: States: no symptoms reported Skin: States: no symptoms reported Neurological: States: no symptoms reported Endocrine: States: no symptoms reported Hematologic/Lymphatic: States: no symptoms reported All other Systems: Reviewed and Negative Past Medical History (General) - Patient Medical History Hx Seizures: No Hx Stroke: No Hx Dementia: No Hx Asthma: Yes Hx of COPD: No Hx Cardiac Disorders: No Hx Congestive Heart Failure: No Hx Pacemaker: No Hx Hypertension: No Hx Thyroid Disease: No Hx Diabetes: No Hx Gastroesophageal Reflux: No Hx Renal Disease: No Hx Cancer: No Hx of HIV: No Hx Hepatitis C: No Hx MRSA: No Surgical History: appendectomy, other - Vaccination History Hx Tetanus, Diphtheria Vaccination: Yes Hx Influenza Vaccination: Yes Hx Pneumococcal Vaccination: No - Social History Hx Tobacco Use: No Hx Chewing Tobacco Use: No Hx Alcohol Use: No Hx Substance Use: No Hx Substance Use Treatment: No Hx Depression: No Hx Physical Abuse: No Hx Emotional Abuse: No Hx Suspected Abuse: No - Female History Hx Last Menstrual Period: 11/24/16 Patient : No Expected Date of Delivery:: 07/06/16 Hx Gestational Age: 25 Family Medical History - Family History Mother Family History: Unknown Living Status: Still Living Hx Family Asthma: Yes Hx Family Hypertension: Yes Hx Family;Other: Seizures Physical Exam - Physical Exam General Appearance: Alert, Comfortable Eye Exam: bilateral normal Ears, Nose, Throat: pharyngeal erythema, tonsillar exudate, tonsillar swelling Neck: non-tender, full range of motion, supple, normal inspection Respiratory: lungs clear, normal breath sounds, no respiratory distress, no accessory muscle use Cardiovascular/Chest: tachycardia Peripheral Pulses: radial,right: 2+, radial,left: 2+ Gastrointestinal/Abdominal: normal bowel sounds, non tender, soft, no organomegaly, no pulsatile mass Rectal Exam: deferred Back Exam: normal inspection Extremity: normal range of motion, non-tender, normal inspection, no pedal edema Neurologic: alert, normal mood/affect, oriented x 3 Lymphatic: no adenopathy Progress - Results/Orders Results/Orders: THE CBC [place] [address] WITH 85% NEUTROPHILS. THE ELECTROLYTES AND THE CREATININE AND BUN ARE WNL. THE PATIENT HAS NOT VOMITED ANY MORE. I HAVE REASSESSED HER ABDOMEN AND THERE IS NO SPLENOMEGALY AND NO MASSES. IT HAS MAINTAINED SOFT AND BENIGN, NO SURGICAL. WILL SENT HOME WITH ZOFRAN AND A LIQUIDS DIET FOR THE NEXT 12 HRS. THEN THE BRAT DIET. TYLENOL FOR FEVER. Departure - Departure Clinical Impression: Tonsillitis with exudate Vomiting Qualifiers: Vomiting type: unspecified Vomiting Intractability: unspecified Nausea presence : with nausea Qualified Code(s): R11.2 - Nausea with vomiting, unspecified Time of Disposition: 18:06 Disposition: Discharge to Home or Self Care Condition: Fair Departure Forms: ED Discharge - Pt. Copy, Patient Portal Self Enrollment Instructions: DI for Vomiting -- Adult Diet: full liquid diet Activity: increase activity as tolerated Referrals: Isabell Wiley NP [Primary Care Provider] - 1-2 Weeks Prescriptions: Ondansetron [Zofran Odt] 4 mg PO Q8HRS #6 tab Home Medications: Ambulatory Orders Albuterol Sulfate [Proair Hfa] 2 puff INH Q6H PRN 11/21/16 Norgestimate-Ethinyl Estradiol [Ortho Tri-Cyclen] 1 tab PO DAILY 12/20/16 Albuterol Inhaler [Ventolin Hfa Inhaler] 108 mcg IN Q4HR PRN #1 inh 12/25/16 Benzonatate Perles [Tessalon Perles] 200 mg PO BID #30 cap 12/25/16 predniSONE 20 mg PO DAILY #7 tab 12/25/16 Ondansetron [Zofran Odt] 4 mg PO Q8HRS #6 tab 02/05/17
[2017-02-05 18:32] VITALS: BP 118/70
== END 2017-02-05 18:17 | disposition home or self-care (01) ==
LOC: ER 16:24
DX: R11.10 Vomiting, unspecified (principal); J03.90 Acute tonsillitis, unspecified; R10.32 Left lower quadrant pain; J45.909 Unspecified asthma, uncomplicated; Z90.49 Acquired absence of other specified parts of digestive tract; Z88.5 Allergy status to narcotic agent
CPT/HCPCS: 36415; 80053; 85025; J2405; J7030

== ENCOUNTER 2017-02-10 17:46 | Emergency (ER) | payer SELFPAY ==
[2017-02-10 21:00] VITALS: O2SAT 100
--- NOTE | 2017-02-10 22:22 | ED.PDOC ---
History of Present Illness - General Chief Complaint: General Stated Complaint: cough,congestion, + strept last week Time Seen by Provider: 02/10/17 22:20 Source: patient, RN notes reviewed, Vital Signs reviewed, family Additional Information: Pt with dry cough for several days. Diagnosed 1 week ago with Strep - given Bicillin LA IM x 1. - History of Present Illness Timing/Duration: 1 week Severity: mild Improving Factors: nothing Worsening Factors: nothing Associated Symptoms: cough Allergies/Adverse Reactions: Allergies Soap Adverse Reaction (Intermediate, Verified 01/15/17 23:55) Rash Oxytocin [From Pitocin] Adverse Reaction (Verified 01/15/17 23:55) ADHESIVE Adverse Reaction (Uncoded 06/30/16 20:21) Home Medications: Ambulatory Orders Albuterol Sulfate [Proair Hfa] 2 puff INH Q6H PRN 11/21/16 Norgestimate-Ethinyl Estradiol [Ortho Tri-Cyclen] 1 tab PO DAILY 12/20/16 Albuterol Inhaler [Ventolin Hfa Inhaler] 108 mcg IN Q4HR PRN #1 inh 12/25/16 Benzonatate Perles [Tessalon Perles] 200 mg PO BID #30 cap 12/25/16 predniSONE 20 mg PO DAILY #7 tab 12/25/16 Ondansetron [Zofran Odt] 4 mg PO Q8HRS #6 tab 02/05/17 Fluticasone Prop 0.05% Nasal [Flonase Nasal [place]] 2 spray BNAS DAILY 7 Days #1 bottle 02/10/17 Loratadine [Claritin] 10 mg PO DAILY #20 tab 02/10/17 Review of Systems - Review of Systems Constitutional: States: no symptoms reported EENTM: States: no symptoms reported Respiratory: States: cough Cardiology: States: no symptoms reported Gastrointestinal/Abdominal: States: no symptoms reported Genitourinary: States: no symptoms reported Musculoskeletal: States: no symptoms reported Skin: States: no symptoms reported Neurological: States: no symptoms reported Endocrine: States: no symptoms reported Past Medical History (General) - Patient Medical History Hx Seizures: No Hx Stroke: No Hx Dementia: No Hx Asthma: Yes Hx of COPD: No Hx Cardiac Disorders: No Hx Congestive Heart Failure: No Hx Pacemaker: No Hx Hypertension: No Hx Thyroid Disease: No Hx Diabetes: No Hx Gastroesophageal Reflux: No Hx Renal Disease: No Hx Cancer: No Hx of HIV: No Hx Hepatitis C: No Hx MRSA: No Surgical History: appendectomy, Hysterectomy, other - Vaccination History Hx Tetanus, Diphtheria Vaccination: No Hx Influenza Vaccination: Yes Hx Pneumococcal Vaccination: No - Social History Hx Tobacco Use: No Hx Chewing Tobacco Use: No Hx Alcohol Use: No Hx Substance Use: No Hx Substance Use Treatment: No Hx Depression: No Hx Physical Abuse: No Hx Emotional Abuse: No Hx Suspected Abuse: No - Female History Patient is a Female of Child Bearing Age (10 -59 yrs old): Yes - Hystectomy Hx Last Menstrual Period: 11/24/16 Patient : No Expected Date of Delivery:: 07/06/16 Hx Gestational Age: 25 - Triage Comment ED Triage Comment: Presents to ER--c/o cough, congestion, and was here last week and was + strept states. Family Medical History - Family History Mother Family History: Unknown Living Status: Still Living Hx Family Asthma: Yes Hx Family Hypertension: Yes Hx Family;Other: Seizures Physical Exam - Physical Exam General Appearance: Alert, Comfortable, No apparent distress - - sleeping as I walked up on [employer]. When patient realized I was in the room she began to cough (dry cough)., Well Developed, Well Groomed, Well Hydrated, Well Nourished Eye Exam: bilateral normal Ears, Nose, Throat: hearing grossly normal, normal ENT inspection, normal pharynx Neck: non-tender, full range of motion, supple, normal inspection Respiratory: lungs clear, normal breath sounds, no respiratory distress, no accessory muscle use Cardiovascular/Chest: regular rate, rhythm, no edema, no murmur Gastrointestinal/Abdominal: soft Extremity: normal range of motion, non-tender Neurologic: liquid floor and wall applier II-XII nml as tested, no motor/sensory deficits, alert, normal mood/affect, oriented x 3 Skin Exam: normal color Lymphatic: no adenopathy Progress - Progress Progress: 02/10/17 23:48 Pt nontoxic, afebrile. Dry cough. No respiratory distress noted on exam. Suspect viral vs allergic bronchitis. Pt stable for d/c home with Rx for Flonase and Claritin as well as strict return precautions. - Results/Orders Results/Orders: Chest X-Ray Report: CLINICAL HISTORY: cough INDICATION: Same as above COMPARISON: 01/22/2017 TECHNIQUE: PA and and lateral chest radiographs were obtained. FINDINGS: The lung freeman are well inflated. There are no discrete airspace infiltrates, pneumothoraces or pleural effusions. The pulmonary vascularity is normal The cardiomediastinal silhouette is unremarkable for patient's age and sex. IMPRESSION: There is no acute pleural-parenchymal process seen in the imaged lung freeman. 02/10/17 02/10/17 20:53 20:54 Temperature 99.0 F 99.3 F Pulse Rate [ 97 H 102 H monitor] Respiratory 20 20 Rate Blood Pressure 118/68 132/98 [Lt arm] O2 Sat by Pulse 98 100 Oximetry Departure - Departure Clinical Impression: Bronchitis Time of Disposition: 23:45 Disposition: Discharge to Home or Self Care Condition: Good Departure Forms: ED Discharge - Pt. Copy, Patient Portal Self Enrollment Instructions: DI for Acute Bronchitis Referrals: Isabell Wiley, REPAIR ELECT[employer]IC MOTOR ASSEMBLER [Primary Care Provider] - 1-5 Days Prescriptions: Fluticasone Prop 0.05% Nasal [Flonase Nasal [place]] 2 spray BNAS DAILY 7 Days #1 bottle Loratadine [Claritin] 10 mg PO DAILY #20 tab Home Medications: Ambulatory Orders Albuterol Sulfate [Proair Hfa] 2 puff INH Q6H PRN 11/21/16 Norgestimate-Ethinyl Estradiol [Ortho Tri-Cyclen] 1 tab PO DAILY 12/20/16 Albuterol Inhaler [Ventolin Hfa Inhaler] 108 mcg IN Q4HR PRN #1 inh 12/25/16 Benzonatate Perles [Tessalon Perles] 200 mg PO BID #30 cap 12/25/16 predniSONE 20 mg PO DAILY #7 tab 12/25/16 Ondansetron [Zofran Odt] 4 mg PO Q8HRS #6 tab 02/05/17 Fluticasone Prop 0.05% Nasal [Flonase Nasal [place]] 2 spray BNAS DAILY 7 Days #1 bottle 02/10/17 Loratadine [Claritin] 10 mg PO DAILY #20 tab 02/10/17 Additional Instructions: No work for 02-11-2017. Stay well hydrated. Take medicine as directed. Return to ER if condition worsens - unable to breath or drink fluids.
--- NOTE | 2017-02-10 23:46 | RAD ---
PROCEDURE: Chest,2 Views CLINICAL HISTORY: cough INDICATION: Same as above COMPARISON: 01/22/2017 TECHNIQUE: PA and and lateral chest radiographs were obtained. FINDINGS: The lung freeman are well inflated. There are no discrete airspace infiltrates, pneumothoraces or pleural effusions. The pulmonary vascularity is normal The cardiomediastinal silhouette is unremarkable for patient's age and sex. IMPRESSION: There is no acute pleural-parenchymal process seen in the imaged lung freeman. Place of interpretation: [facility]. Electronically signed by: Cam Hernandez MD 02/10/2017 11:45 PM [facility] Workstation: [id number]
[2017-02-11 00:04] VITALS: BP 109/63; TEMP 97.8
== END 2017-02-10 23:45 | disposition home or self-care (01) ==
LOC: ER 17:46
DX: J45.909 Unspecified asthma, uncomplicated (principal); Z88.5 Allergy status to narcotic agent

== ENCOUNTER 2017-02-12 08:12 | Emergency (ER) | payer SELFPAY ==
[2017-02-12 08:36] VITALS: TEMP 97.4
--- NOTE | 2017-02-12 08:44 | ED.PDOC ---
History of Present Illness - General Chief Complaint: ENT Problem Stated Complaint: left neck swollen; left ear pain Time Seen by Provider: 02/12/17 08:30 - History of Present Illness Initial Comments: THIS PATIENT HAS BEEN TO THE ED SEVERAL TIMES IN THE LAST 10-14 DAYS. SHE STARTED WITH STREPT THROAT AND WAS GIVEN BICILLIN LA IM, THEN CAME BACK WITH VOMITING AND TWO DAYS AGO WITH A COUGH AND DIAGNOSED BRONCHITIS. NOW SHE IS HERE WITH SWELLING AND PAIN TO THE LEFT SIDE OF THE NECK ASSOCIATED WITH LEFT OTALGIA. SHE DENIES ANY FEVER AT THIS TIME. THE PATIENT ALSO VOICES FOUL ODOR VAGINAL DISCHARGE AND BURNING TO THE VULVA. Timing/Duration: abrupt, this morning EENT Location: ear (L) Prearrival Treatment: no prearrival treatment Improving Factors: nothing Worsening Factors: nothing Associated Symptoms: cough, malaise, nasal congestion/drainage Allergies/Adverse Reactions: Allergies Soap Adverse Reaction (Intermediate, Verified 01/15/17 23:55) Rash Oxytocin [From Pitocin] Adverse Reaction (Verified 01/15/17 23:55) ADHESIVE Adverse Reaction (Uncoded 06/30/16 20:21) Home Medications: Ambulatory Orders Albuterol Sulfate [Proair Hfa] 2 puff INH Q6H PRN 11/21/16 Norgestimate-Ethinyl Estradiol [Ortho Tri-Cyclen] 1 tab PO DAILY 12/20/16 Albuterol Inhaler [Ventolin Hfa Inhaler] 108 mcg IN Q4HR PRN #1 inh 12/25/16 Benzonatate Perles [Tessalon Perles] 200 mg PO BID #30 cap 12/25/16 predniSONE 20 mg PO DAILY #7 tab 12/25/16 Ondansetron [Zofran Odt] 4 mg PO Q8HRS #6 tab 02/05/17 Fluticasone Prop 0.05% Nasal [Flonase Nasal [place]] 2 spray BNAS DAILY 7 Days #1 bottle 02/10/17 Loratadine [Claritin] 10 mg PO DAILY #20 tab 02/10/17 Azithromycin [Zithromax Z-Barber] 1 ea PO DAILY #1 pack 02/12/17 metroNIDAZOLE [Flagyl] 500 mg PO Q8H #21 tab 02/12/17 Review of Systems - Review of Systems Constitutional: States: fever, malaise EENTM: States: ear pain, nose congestion Respiratory: States: cough Cardiology: States: no symptoms reported Gastrointestinal/Abdominal: States: no symptoms reported Genitourinary: States: no symptoms reported Musculoskeletal: States: no symptoms reported Skin: States: no symptoms reported Neurological: States: no symptoms reported Endocrine: States: no symptoms reported Hematologic/Lymphatic: States: no symptoms reported Past Medical History (General) - Patient Medical History Hx Seizures: No Hx Stroke: No Hx Dementia: No Hx Asthma: Yes Hx of COPD: No Hx Cardiac Disorders: No Hx Congestive Heart Failure: No Hx Pacemaker: No Hx Hypertension: No Hx Thyroid Disease: No Hx Diabetes: No Hx Gastroesophageal Reflux: No Hx Renal Disease: No Hx Cancer: No Hx of HIV: No Hx Hepatitis C: No Hx MRSA: No Surgical History: appendectomy - Vaccination History Hx Tetanus, Diphtheria Vaccination: No Hx Influenza Vaccination: Yes Hx Pneumococcal Vaccination: No - Social History Hx Tobacco Use: No Hx Chewing Tobacco Use: No Hx Alcohol Use: No Hx Substance Use: No Hx Substance Use Treatment: No Hx Depression: No Hx Physical Abuse: No Hx Emotional Abuse: No Hx Suspected Abuse: No - Female History Hx Last Menstrual Period: 11/24/16 Patient : No Expected Date of Delivery:: 07/06/16 Hx Gestational Age: 25 Family Medical History - Family History Mother Family History: Unknown Living Status: Still Living Hx Family Asthma: Yes Hx Family Hypertension: Yes Hx Family;Other: Seizures Physical Exam - Physical Exam General Appearance: Alert, Well Developed, Well Groomed, Well Nourished Eye Exam: bilateral normal Ear Exam: bilateral ear: TM normal Nasal Exam: other - CLEAR RHINORRHEA Throat Exam: pharynx normal Neck: full range of motion, supple - NO LYMPHADENOPATHY NOTED Cardiovascular/Respiratory: regular rate, rhythm, normal peripheral pulses, no JVD Abdominal Exam: non-tender, no organomegaly, other - VAGINAL EXAM: EXTERNAL GENITALIA OF NORMAL CHARACTERISTICS. SPECULLUM EXAM: SMALL AMOUNT OF WHITE DISCHARGE, CERVIX W/O MASSES AND THE BIMANUAL EXAM REVEALS NO CERVICAL MOTION TENDERNESS NO ADNEXAL MASSES AND UTERUS OF NORMAL SIZE. Skin Exam: normal color Progress - Results/Orders Results/Orders: THE TEST ARE RESULTED. THE AMYLASE AND MONO SPOT ARE NORMAL AND NEGATIVE. NOW SHE VOICES VAGINAL DISCHARGE, FOUL SMELLING AND ALSO BURNING TO THE VULVA. A VAGINAL EXAM WILL BE PERFORMED WITH STD TESTING AND A WET PREP. THE WET PREP CAME BACK WITH SMALL AMOUNT OF CLUE CELLS. WILL TREAT FOR BACTERIAL VAGINOSIS Departure - Departure Clinical Impression: Bacterial vaginosis Otitis media Qualifiers: Otitis media type: other nonsuppurative Chronicity: acute Laterality: left Time of Disposition: 10:08 Disposition: Discharge to Home or Self Care Condition: Fair Departure Forms: ED Discharge - Pt. Copy, Patient Portal Self Enrollment Instructions: DI for Ear Pain-Adult, DI for Bacterial Vaginosis Diet: resume usual diet Activity: increase activity as tolerated Referrals: Isabell Wiley NP [Primary Care Provider] - 1-2 Weeks Prescriptions: Azithromycin [Zithromax Z-Barber] 1 ea PO DAILY #1 pack metroNIDAZOLE [Flagyl] 500 mg PO Q8H #21 tab Home Medications: Ambulatory Orders Albuterol Sulfate [Proair Hfa] 2 puff INH Q6H PRN 11/21/16 Norgestimate-Ethinyl Estradiol [Ortho Tri-Cyclen] 1 tab PO DAILY 12/20/16 Albuterol Inhaler [Ventolin Hfa Inhaler] 108 mcg IN Q4HR PRN #1 inh 12/25/16 Benzonatate Perles [Tessalon Perles] 200 mg PO BID #30 cap 12/25/16 predniSONE 20 mg PO DAILY #7 tab 12/25/16 Ondansetron [Zofran Odt] 4 mg PO Q8HRS #6 tab 02/05/17 Fluticasone Prop 0.05% Nasal [Flonase Nasal [place]] 2 spray BNAS DAILY 7 Days #1 bottle 02/10/17 Loratadine [Claritin] 10 mg PO DAILY #20 tab 02/10/17 Azithromycin [Zithromax Z-Barber] 1 ea PO DAILY #1 pack 02/12/17 metroNIDAZOLE [Flagyl] 500 mg PO Q8H #21 tab 02/12/17
[2017-02-12 10:24] VITALS: BP 116/76; O2SAT 98
== END 2017-02-12 10:20 | disposition home or self-care (01) ==
LOC: ER 08:12
DX: H65.192 Other acute nonsuppurative otitis media, left ear (principal); N76.0 Acute vaginitis

== ENCOUNTER 2017-02-25 17:18 | Emergency (ER) | payer SELFPAY ==
[2017-02-25 17:33] VITALS: BP 116/76; TEMP 97.6; O2SAT 97
--- NOTE | 2017-02-25 17:42 | ED.PDOC ---
History of Present Illness - General Chief Complaint: Problem Stated Complaint: vaginal itching/burning Time Seen by Provider: 02/25/17 17:40 Source: patient Exam Limitations: no limitations - History of Present Illness Initial Comments: Angie Douglas 21 y/o female came to ER with vaginal itching for the last 2 days had recently been on flagyl last week and finished medication.She stated she is on her menstrual periods.Denies history of STI Timing/Duration: other - 2 days ago Quality: other - iching /burning Onset Location: vaginal Radiation: none Activites at Onset: none Prior abdominal problems: none Sexual intercourse history: single partner Improving Factors: nothing Worsening Factors: nothing Associated Symptoms: denies symptoms, other - see hpi Allergies/Adverse Reactions: Allergies Soap Adverse Reaction (Intermediate, Verified 01/15/17 23:55) Rash Oxytocin [From Pitocin] Adverse Reaction (Verified 01/15/17 23:55) ADHESIVE Adverse Reaction (Uncoded 06/30/16 20:21) Home Medications: Ambulatory Orders Albuterol Sulfate [Proair Hfa] 2 puff INH Q6H PRN 11/21/16 Norgestimate-Ethinyl Estradiol [Ortho Tri-Cyclen] 1 tab PO DAILY 12/20/16 Albuterol Inhaler [Ventolin Hfa Inhaler] 108 mcg IN Q4HR PRN #1 inh 12/25/16 Triamcinolone 0.1% Oint [Kenalog 0.1% Ointment] 15 gm TOP BID 10 Days #1 tube Review of Systems - Review of Systems Constitutional: States: no symptoms reported EENTM: States: no symptoms reported Respiratory: States: no symptoms reported Cardiology: States: no symptoms reported Gastrointestinal/Abdominal: States: no symptoms reported Genitourinary: States: see HPI All other Systems: Reviewed and Negative, No Change from Baseline Past Medical History (General) - Patient Medical History Hx Seizures: No Hx Stroke: No Hx Dementia: No Hx Asthma: Yes Hx of COPD: No Hx Cardiac Disorders: No Hx Congestive Heart Failure: No Hx Pacemaker: No Hx Hypertension: No Hx Thyroid Disease: No Hx Diabetes: No Hx Gastroesophageal Reflux: No Hx Renal Disease: No Hx Cancer: No Hx of HIV: No Hx Hepatitis C: No Hx MRSA: No Surgical History: appendectomy, other - c -section - Vaccination History Hx Tetanus, Diphtheria Vaccination: No Hx Influenza Vaccination: Yes Hx Pneumococcal Vaccination: No - Social History Hx Tobacco Use: No Hx Chewing Tobacco Use: No Hx Alcohol Use: No Hx Substance Use: No Hx Substance Use Treatment: No Hx Depression: No Hx Physical Abuse: No Hx Emotional Abuse: No Hx Suspected Abuse: No - Female History Patient is a Female of Child Bearing Age (10 -59 yrs old): Yes Hx Last Menstrual Period: 02/25/17 - still on her periods Patient : No Hx Gestational Age: 25 Family Medical History - Family History Mother Family History: Unknown Living Status: Still Living Hx Family Asthma: Yes Hx Family Hypertension: Yes Hx Family;Other: Seizures Physical Exam - Physical Exam General Appearance: Alert, Comfortable, No apparent distress Eyes, Ears, Nose, Throat Exam: normal ENT inspection, pharynx normal Neck: non-tender, full range of motion, supple Cardiovascular/Respiratory: regular rate, rhythm, no M/R/G, normal peripheral pulses Gastrointestinal/Abdominal: normal bowel sounds, non tender, soft Pelvic Exam: speculum exam normal - menstrual blood vaginal cavity;no adnexal tenderness, no cerv. motion tender, no masses, other - skin fissures labia minora,non tender Back Exam: no CVA tenderness, no vertebral tenderness Extremity: non-tender, no calf tenderness Neurologic: alert, oriented x 3 Skin Exam: normal color, warm/dry Lymphatic: no adenopathy Progress - Progress Progress: 02/25/17 18:29 Last Vital Signs Temp 97.6 F 02/25/17 17:30 Pulse 69 02/25/17 17:30 Resp 16 02/25/17 17:30 BP 116/76 02/25/17 17:30 Pulse Ox 97 02/25/17 17:30 Laboratory Tests 02/25/17 18:09 POC Glucose 79 Departure - Departure Clinical Impression: Itching in the vaginal area Time of Disposition: 18:25 Disposition: Discharge to Home or Self Care Condition: Good Departure Forms: ED Discharge - Pt. Copy, Patient Portal Self Enrollment Instructions: DI for Vaginal Itching Referrals: Isabell Wiley, [employer] DEVELOPMENT MANAGER [Primary Care Provider] - 1-2 Weeks Prescriptions: Triamcinolone 0.1% Oint [Kenalog 0.1% Ointment] 15 gm TOP BID 10 Days #1 tube Home Medications: Ambulatory Orders Albuterol Sulfate [Proair Hfa] 2 puff INH Q6H PRN 11/21/16 Norgestimate-Ethinyl Estradiol [Ortho Tri-Cyclen] 1 tab PO DAILY 12/20/16 Albuterol Inhaler [Ventolin Hfa Inhaler] 108 mcg IN Q4HR PRN #1 inh 12/25/16 Triamcinolone 0.1% Oint [Kenalog 0.1% Ointment] 15 gm TOP BID 10 Days #1 tube Additional Instructions: NEED TO FOLLOW UP WITH SENIOR SQL SERVER DATABASE DEVELOPER 03/04/2017 patient to call for appointment
== END 2017-02-25 18:34 | disposition home or self-care (01) ==
LOC: ER 17:18
DX: L29.2 Pruritus vulvae (principal)

== ENCOUNTER 2017-05-19 18:09 | Emergency (ER) | payer OTHER ==
[2017-05-19 18:28] VITALS: TEMP 98.8
--- NOTE | 2017-05-19 18:42 | ED.PDOC ---
History of Present Illness - General Chief Complaint: Headache Stated Complaint: Constant headache Time Seen by Provider: 05/19/17 18:39 Source: patient Exam Limitations: no limitations - History of Present Illness Initial Comments: patient comes in today with 2-3 week history of headache. At first the headache was intermittent but now has become more constant. The headache is bilateral frontal sometimes radiating to the posterior aspect moderate in severity with no vision changes no nausea, no photophobia, no phonophobia. Patient has no nausea or vomiting she denies any cough. She has had some nasal congestion that seems to be worsening but no purulence and no fever or chills. Patient had headaches in the past but last one was more than 5 years ago and at that time it is caused from dehydration. She has been taking an normal by mouth intake at this time. Patient states today she came in because he just wasn't getting better and she just became frustrated. Patient denies any chest pain, shortness of breath, fever or chills. No altered LOC and she has not taken anything for the headache today but did take Benadryl for the congestion 1. Timing/Duration: other - 2-3 weeks Improving Factors: nothing Worsening Factors: nothing Associated Symptoms: headaches Allergies/Adverse Reactions: Allergies Soap Adverse Reaction (Intermediate, Verified 05/19/17 18:29) Rash Antibacterial soap Oxytocin [From Pitocin] Adverse Reaction (Verified 01/15/17 23:55) ADHESIVE Adverse Reaction (Uncoded 05/19/17 18:29) Other Increases skin sensitivity Home Medications: Ambulatory Orders Albuterol Sulfate [Proair Hfa] 2 puff INH Q6H PRN 11/21/16 Norgestimate-Ethinyl Estradiol [Ortho Tri-Cyclen] 1 tab PO DAILY 12/20/16 Albuterol Inhaler [Ventolin Hfa Inhaler] 108 mcg IN Q4HR PRN #1 inh 12/25/16 Triamcinolone 0.1% Oint [Kenalog 0.1% Ointment] 15 gm TOP BID 10 Days #1 tube Amoxicillin 875 mg PO BID 10 Days #20 tab 05/19/17 Review of Systems - Review of Systems Constitutional: Denies: chills, fever EENTM: States: nose congestion. Denies: blurred vision, tearing, double vision , ear pain, throat pain, mouth pain Respiratory: Denies: no symptoms reported, cough, short of breath, wheezing Cardiology: States: no symptoms reported. Denies: chest pain Gastrointestinal/Abdominal: States: no symptoms reported. Denies: abdominal pain, diarrhea, nausea, vomiting Genitourinary: States: no symptoms reported Musculoskeletal: States: no symptoms reported Skin: States: no symptoms reported Neurological: States: headache. Denies: numbness, paresthesia, weakness Past Medical History (General) - Patient Medical History Hx Seizures: No Hx Stroke: No Hx Dementia: No Hx Asthma: Yes Hx of COPD: No Hx Cardiac Disorders: No Hx Congestive Heart Failure: No Hx Pacemaker: No Hx Hypertension: No Hx Thyroid Disease: No Hx Diabetes: No Hx Gastroesophageal Reflux: No Hx Renal Disease: No Hx Cancer: No Hx of HIV: No Hx Hepatitis C: No Hx MRSA: No - Vaccination History Hx Tetanus, Diphtheria Vaccination: No Hx Influenza Vaccination: Yes - 2017 Hx Pneumococcal Vaccination: No - Social History Hx Tobacco Use: No Hx Chewing Tobacco Use: No Hx Alcohol Use: No Hx Substance Use: No Hx Substance Use Treatment: No Hx Depression: No Hx Physical Abuse: No Hx Emotional Abuse: No Hx Suspected Abuse: No - Female History Patient is a Female of Child Bearing Age (10 -59 yrs old): Yes Hx Last Menstrual Period: 02/25/17 - still on her periods Patient : No Expected Date of Delivery:: 07/06/16 Hx Gestational Age: 25 Family Medical History - Family History Mother Family History: Unknown Living Status: Still Living Hx Family Asthma: Yes Hx Family Hypertension: Yes Hx Family;Other: Seizures Physical Exam - Physical Exam General Appearance: Comfortable, No apparent distress Eye Exam: bilateral normal Ears, Nose, Throat: hearing grossly normal, normal pharynx, sinus pain/drainage - bilateral frontal sinus tenderness with nasal congestion but no purulence Neck: non-tender, full range of motion, supple Respiratory: chest non-tender, lungs clear, normal breath sounds, no respiratory distress Cardiovascular/Chest: regular rate, rhythm, no edema, no gallop, no JVD, no murmur Gastrointestinal/Abdominal: normal bowel sounds, non tender, soft, no organomegaly Neurologic: parts expediter II-XII nml as tested, oriented x 3 Progress - Progress Progress: 05/19/17 18:44 past the patient appears to be sinusitis. Decadron and Rocephin given here in the emergency room. The patient placed on amoxicillin 835 mg by mouth twice a day 10 days and told to get Sudafed and do sinus irrigation. Return to emergency room for altered LOC, severe increased pain, vision change, tubal nausea vomiting. Departure - Departure Clinical Impression: Sinus headache, Sinusitis Disposition: Discharge to Home or Self Care Condition: Good Departure Forms: ED Discharge - Pt. Copy, Patient Portal Self Enrollment Instructions: DI for Headache, DI for Sinusitis Diet: regular diet Referrals: Isabell Wiley NP [Primary Care Provider] - 1-2 Weeks Home Medications: Ambulatory Orders Albuterol Sulfate [Proair Hfa] 2 puff INH Q6H PRN 11/21/16 Norgestimate-Ethinyl Estradiol [Ortho Tri-Cyclen] 1 tab PO DAILY 12/20/16 Albuterol Inhaler [Ventolin Hfa Inhaler] 108 mcg IN Q4HR PRN #1 inh 12/25/16 Triamcinolone 0.1% Oint [Kenalog 0.1% Ointment] 15 gm TOP BID 10 Days #1 tube Amoxicillin 875 mg PO BID 10 Days #20 tab 05/19/17 Comments: discussed with patient possible interaction with control that she should use secondary control. Also, patient should return to the emergency room for severe increase in headache, altered LOC, intractable emesis, or vision change. She should get [id number] Sudafed to help with the congestion and sinus irrigation with Neti pot discussed.
[2017-05-19] MEDS ORDERED: DEXAMETHASONE INJ 4 MG/ML VIAL IM ONE (18:45)
[2017-05-19] MEDS ORDERED: cefTRIAXone SODIUM 1 GM VIAL IM ONE (18:45)
[2017-05-19] MEDS ORDERED: LIDOCAINE 1% 10 ML VIAL INJ ONE (18:57)
[2017-05-19 19:20] VITALS: BP 118/79; O2SAT 98
== END 2017-05-19 19:05 | disposition home or self-care (01) ==
LOC: ER 18:09
DX: J32.9 Chronic sinusitis, unspecified (principal); J45.909 Unspecified asthma, uncomplicated; Z79.899 Other long term (current) drug therapy

== ENCOUNTER 2017-05-25 21:12 | Emergency (ER) | payer OTHER ==
[2017-05-25 21:26] VITALS: TEMP 98
[2017-05-25] MEDS ORDERED: ALUM & MAG HYDROX-SIMETHICONE 30 ML UD ONE (21:28)
[2017-05-25] MEDS ORDERED: LIDOCAINE HCL 2% (MOUTH-THROAT) 15 ML UD ONE (21:28)
[2017-05-25] MEDS ORDERED: OMEPRAZOLE CAP 20 MG CAP PO ONE (21:32)
[2017-05-25] MEDS ORDERED: ALUM & MAG HYDROX-SIMETHICONE 30 ML, LIDOCAINE VISCOUS 2% 15 ML PO ONE ×2 (21:34)
--- NOTE | 2017-05-25 21:52 | RAD ---
Examination: XR CHEST 1 VIEW dated 05/25/2017 9:28 PM CDT History: EPIGASTRIC PAIN Comparison: 02/10/2017 Technique: 1 view chest Findings: The lungs are clear bilaterally. No pneumothorax or pleural effusion. The cardiomediastinal silhouette is within normal limits. Impression: No acute disease. Electronically signed by: Nas Chiang MD 05/25/2017 9:50 PM CDT
--- NOTE | 2017-05-25 22:14 | ED.PDOC ---
History of Present Illness - General Chief Complaint: GI Problem Stated Complaint: epigastic pain Time Seen by Provider: 05/25/17 21:27 Source: patient Exam Limitations: no limitations - History of Present Illness Initial Comments: 3 D EPIGASTRIC/CHEST PAIN. PAIN IS LOCATED IN EPIGASTRIC AND XIPHOID PROCESS REGION. INTERMITTENT X 2D. NOW CONSTANT TODAY. IS BURPING. TUMS NOT HELPING. HAD GERD DURING . NOT WORSE AT NIGHT. NOT POSTPRANDIAL. Timing/Duration: constant Severity: moderate Improving Factors: nothing Worsening Factors: nothing Associated Symptoms: other - MAKES IT DIFFICULT TO TAKE A DEEP BREATH. Allergies/Adverse Reactions: Allergies Soap Adverse Reaction (Intermediate, Verified 05/19/17 18:29) Rash Antibacterial soap Oxytocin [From Pitocin] Adverse Reaction (Verified 01/15/17 23:55) ADHESIVE Adverse Reaction (Uncoded 05/19/17 18:29) Other Increases skin sensitivity Home Medications: Ambulatory Orders Albuterol Sulfate [Proair Hfa] 2 puff INH Q6H PRN 11/21/16 Norgestimate-Ethinyl Estradiol [Ortho Tri-Cyclen] 1 tab PO DAILY 12/20/16 Albuterol Inhaler [Ventolin Hfa Inhaler] 108 mcg IN Q4HR PRN #1 inh 12/25/16 Review of Systems - Review of Systems Constitutional: Denies: chills, fever, weakness EENTM: States: no symptoms reported Respiratory: Denies: cough, stridor, wheezing Cardiology: States: see HPI, other - EPIGASTRIC/XIPHOID LOWER STERNAL PAIN. NO RADIATION TO L CHEST, JAW, LUE. . Denies: palpitations Gastrointestinal/Abdominal: States: see HPI. Denies: constipation, diarrhea, nausea, vomiting Genitourinary: States: no symptoms reported Musculoskeletal: States: no symptoms reported Skin: States: no symptoms reported Neurological: States: no symptoms reported Endocrine: States: no symptoms reported Hematologic/Lymphatic: States: no symptoms reported All other Systems: Reviewed and Negative Past Medical History (General) - Patient Medical History Hx Seizures: No Hx Stroke: No Hx Dementia: No Hx Asthma: Yes Hx of COPD: No Hx Cardiac Disorders: No Hx Congestive Heart Failure: No Hx Pacemaker: No Hx Hypertension: No Hx Thyroid Disease: No Hx Diabetes: - hypoglcemia history Hx Gastroesophageal Reflux: No Hx Renal Disease: No Hx Cancer: No Hx of HIV: No Hx Hepatitis C: No Hx MRSA: No Surgical History: appendectomy - Vaccination History Hx Tetanus, Diphtheria Vaccination: No Hx Influenza Vaccination: Yes Hx Pneumococcal Vaccination: No - Social History Hx Tobacco Use: No Hx Chewing Tobacco Use: No Hx Alcohol Use: No Hx Substance Use: No Hx Substance Use Treatment: No Hx Depression: No Hx Physical Abuse: No Hx Emotional Abuse: No Hx Suspected Abuse: No - Female History Patient is a Female of Child Bearing Age (10 -59 yrs old): Yes Hx Last Menstrual Period: 02/25/17 - still on her periods Patient : No Expected Date of Delivery:: 07/06/16 Hx Gestational Age: 25 Family Medical History - Family History Mother Family History: Unknown Living Status: Still Living Hx Family Asthma: Yes Hx Family Hypertension: Yes Hx Family;Other: Seizures Physical Exam - Physical Exam General Appearance: Alert, No apparent distress Eye Exam: bilateral normal Ears, Nose, Throat: hearing grossly normal, normal ENT inspection Neck: other - NO JVD. NO BRUIT. Respiratory: chest non-tender, lungs clear, normal breath sounds, no respiratory distress, no accessory muscle use Cardiovascular/Chest: normal peripheral pulses, regular rate, rhythm, no edema, no gallop, no JVD, no murmur Peripheral Pulses: radial,right: 2+, radial,left: 2+ Gastrointestinal/Abdominal: normal bowel sounds, soft, other - PALPATION OF EPIGASTRIC LAYING SUPINE EXACERBATES THE SX. REMAINING ABD NTTP, NO GUARDING/ REBOUND. Back Exam: normal inspection, no CVA tenderness Extremity: normal range of motion, normal inspection Neurologic: no motor/sensory deficits, alert Skin Exam: normal color, warm/dry Lymphatic: no adenopathy Progress - Progress Progress: 05/25/17 22:25 CARDIOPULMONARY W/U NEG - CXR, EKG, CARDIAC ENZYMES. 3D PAIN, THUS ONLY 1 SET CARD ENZ INDICATED. PT STATED GI COCKTAIL HELPED TEMPORARILY BUT NOW IT'S RETURNING, THUS POINTS TOWARD GERD. INSTRUCTED PT ZANTAC 150 BID X 2 WKS TO SEE IF BETTER. IF NOT, SEE PCP. Departure - Departure Clinical Impression: GERD (gastroesophageal reflux disease), Acute epigastric pain Disposition: Discharge to Home or Self Care Condition: Good Departure Forms: ED Discharge - Pt. Copy, Patient Portal Self Enrollment Instructions: DI for Gastroesophageal Reflux Disease (GERD) Diet: other - LIMIT INTAKE OF CAFFEINE, CHOCOLATE, FRIED FOODS. INCREASE FRUITS AND VEGETABLES. Activity: increase activity as tolerated Referrals: Isabell Wiley ABLE BODIED SEAMAN [Primary Care Provider] - 1-2 Weeks Home Medications: Ambulatory Orders Albuterol Sulfate [Proair Hfa] 2 puff INH Q6H PRN 11/21/16 Norgestimate-Ethinyl Estradiol [Ortho Tri-Cyclen] 1 tab PO DAILY 12/20/16 Albuterol Inhaler [Ventolin Hfa Inhaler] 108 mcg IN Q4HR PRN #1 inh 12/25/16 Additional Instructions: START ZANTAC (RANITIDINE) 150 MG IN THE MORNING AND NIGHTTIME FOR 2 WEEKS. YOU CAN BUY IT AT ANY DRUG STORE. IF IT IS NOT HELPING, PLEASE SEE YOUR REGULAR DOCTOR FOR RE-EVALUATION.
[2017-05-25 22:35] VITALS: BP 116/66; O2SAT 99
== END 2017-05-25 22:36 | disposition home or self-care (01) ==
LOC: ER 21:12
DX: K21.9 Gastro-esophageal reflux disease without esophagitis (principal); J45.909 Unspecified asthma, uncomplicated

== ENCOUNTER 2017-10-12 20:01 | Emergency (ER) | payer OTHER ==
[2017-10-12 20:18] VITALS: BP 118/79; O2SAT 100
[2017-10-12] MEDS ORDERED: ALUM & MAG HYDROX-SIMETHICONE 30 ML, LIDOCAINE VISCOUS 2% 15 ML PO ONE ×2 (21:48)
--- NOTE | 2017-10-12 21:50 | ED.PDOC ---
History of Present Illness - General Chief Complaint: Abdominal Pain Stated Complaint: upper abdominal pain Time Seen by Provider: 10/12/17 20:23 Information Source: patient Exam Limitations: no limitations - History of Present Illness Initial Comments: RUQ AND EPIGASTRIC PAIN 5-6 MOS INTERMITTENT. STARTED 4-5 HRS AGO TODAY AT WORK; CONSTANT. WORSE WITH GREASY FOODS. TUMS HASN'T HELPED IN THE PAST. HAS NOT TRIED PPI OR H2 PARESH YET. SHE HAS A [facility] PCP WHO RECOMMENDED IN THE PAST TO CHANGE HER DIET BUT SHE STATES SHE HAS NOT. Abdominal Pain Onset Location: epigastric Pain Radiation: RUQ, epigastric Quality: moderate Timing/Duration: 4-6 hours Improving Factors: nothing Worsening Factors: eating Associated Symptoms: heartburn Review of Systems - Review of Systems Constitutional: Denies: chills, fever EENTM: States: no symptoms reported Respiratory: States: no symptoms reported Cardiology: States: no symptoms reported Gastrointestinal/Abdominal: States: abdominal pain - EPIGASTRIC AND RUQ.. Denies: constipation, diarrhea, nausea, vomiting Genitourinary: Denies: dysuria, frequency Musculoskeletal: States: no symptoms reported Skin: States: no symptoms reported Neurological: States: no symptoms reported Endocrine: States: no symptoms reported Hematologic/Lymphatic: States: no symptoms reported All other Systems: Reviewed and Negative Past Medical History (General) - Patient Medical History Hx Seizures: No Hx Stroke: No Hx Dementia: No Hx Asthma: Yes Hx of COPD: No Hx Cardiac Disorders: No Hx Congestive Heart Failure: No Hx Pacemaker: No Hx Hypertension: No Hx Thyroid Disease: No Hx Diabetes: - hypoglcemia history Hx Gastroesophageal Reflux: No Hx Renal Disease: No Hx Cancer: No Hx of HIV: No Hx Hepatitis C: No Hx MRSA: No Surgical History: appendectomy - Vaccination History Hx Tetanus, Diphtheria Vaccination: No Hx Influenza Vaccination: Yes Hx Pneumococcal Vaccination: No - Social History Hx Tobacco Use: No Hx Chewing Tobacco Use: No Hx Alcohol Use: Yes Hx Substance Use: No Hx Substance Use Treatment: No Hx Depression: No Hx Physical Abuse: No Hx Emotional Abuse: No Hx Suspected Abuse: No - Female History Patient is a Female of Child Bearing Age (10 -59 yrs old): Yes Hx Last Menstrual Period: 02/25/17 - still on her periods Patient : No Expected Date of Delivery:: 07/06/16 Hx Gestational Age: 25 Family Medical History - Family History Mother Family History: Unknown Living Status: Still Living Hx Family Asthma: Yes Hx Family Hypertension: Yes Hx Family;Other: Seizures Physical Exam - Physical Exam General Appearance: Alert, No apparent distress Eyes, Ears, Nose, Throat Exam: PERRL/EOMI, normal ENT inspection, other - NO SCLERAL ICTERUS. Neck: full range of motion, normal inspection Respiratory: normal breath sounds, no respiratory distress Cardiovascular/Chest: regular rate, rhythm, no JVD Peripheral Pulses: No deficit Gastrointestinal/Abdominal: normal bowel sounds, soft, tenderness - EPIGASTRIC. REMAINDER NTTP. NEG THURMAN'S SIGN. NEG ROVSING SIGN. Back Exam: normal inspection, no CVA tenderness Extremity: normal range of motion, normal inspection Neurologic: no motor/sensory deficits, alert, normal mood/affect Skin Exam: normal color, warm/dry Lymphatic: no adenopathy Special Observations: Using mobile device Progress - Progress Progress: 10/12/17 21:58 AFEBRILE UNREMARKABLE LABS: CBC, CMP (BILIRUBIN, LFT'S, ALK PHOS WNL), LIPASE, UA, HCG. BASED ON HER LABS AND SX, IT IS MORE LIKELY GERD BUT COULD ALSO BE BILIARY DYSKINESIA (HIDA SCAN). GI COCK TAIL GIVEN IN ER. I INSTRUCTED HER AN EASY WAY TO R/O GERD, TAKE PPI FOR AT LEAST 7 D AND TO F/U W/ PCP TO INFORM HER IF IT IS HELPING. IF NOT, PCP MIGHT ORDER U/S TO ASSESS GALLBLADDER PATHOLOGY EVEN THOUGH LABS ARE NEG. Departure - Departure Clinical Impression: Epigastric pain, RUQ abdominal pain Disposition: Discharge to Home or Self Care Condition: Good Departure Forms: ED Discharge - Pt. Copy, Patient Portal Self Enrollment Instructions: Acid Reflux (Gastroesophageal Reflux Disease), Adult (DC) Diet: low fat, low cholesterol Activity: increase activity as tolerated Referrals: Isabell Wiley NP [Primary Care Provider] - 1 Week Home Medications: Ambulatory Orders Albuterol Sulfate [Proair Hfa] 2 puff INH Q6H PRN 11/21/16 Norgestimate-Ethinyl Estradiol [Ortho Tri-Cyclen] 1 tab PO DAILY 12/20/16 Albuterol Inhaler [Ventolin Hfa Inhaler] 108 mcg IN Q4HR PRN #1 inh 12/25/16 Additional Instructions: Please take omeprazole or Nexium every day for at least 7 days. Follow up with your PCP to relay if it helps. Please try to increase fresh fruits, vegetables and lean meats and avoid fried foods.
[2017-10-12] MEDS ORDERED: ALUM & MAG HYDROX-SIMETHICONE 30 ML UD ONE (21:51)
[2017-10-12] MEDS ORDERED: LIDOCAINE HCL 2% (MOUTH-THROAT) 15 ML UD ONE (21:52)
[2017-10-12 22:11] VITALS: TEMP 98.7
== END 2017-10-12 22:11 | disposition home or self-care (01) ==
LOC: ER 20:01
DX: R10.11 Right upper quadrant pain (principal); R10.13 Epigastric pain; J45.909 Unspecified asthma, uncomplicated; Z90.49 Acquired absence of other specified parts of digestive tract

== ENCOUNTER 2017-10-24 17:39 | Emergency (ER) | payer SELFPAY ==
[2017-10-24] MEDS ORDERED: KETOROLAC TROMETHAMINE INJ 30 MG/ML VIAL IM ONE (18:07)
--- NOTE | 2017-10-24 18:07 | RAD ---
EXAM DESCRIPTION: Ankle,Right 3 Views CLINICAL HISTORY: 21 years Female ,PAIN COMPARISON: None. TECHNIQUE: Right ankle, 3 view FINDINGS: No acute fractures or dislocations are identified. No osseous destructive lesions. Marked soft tissue swelling laterally and anteriorly Small joint effusion. IMPRESSION: No acute fracture is identified. Marked soft tissue swelling anterolaterally with small ankle effusion Electronically signed by: Lili Guevara MD 10/24/2017 6:05 PM CDT
--- NOTE | 2017-10-24 18:10 | ED.PDOC ---
History of Present Illness - General Chief Complaint: Lower Extremity Injury Stated Complaint: right ankle pain Time Seen by Provider: 10/24/17 17:55 Source: patient Exam Limitations: no limitations - History of Present Illness Initial Comments: Patient presents with right ankle pain after twisting it while playing with children. She has not tried to walk on it. The pain is lateral malleolus, throbbing, non-radiating, worse with movement, better with rest. No previous fractures to the area but has "rolled it" before. No other injuries nor complaints. Timing/Duration: 1/2 hour Severity: moderate Improving Factors: rest Worsening Factors: movement Associated Symptoms: denies symptoms Allergies/Adverse Reactions: Allergies Soap Adverse Reaction (Intermediate, Verified 05/19/17 18:29) Rash Antibacterial soap Oxytocin [From Pitocin] Adverse Reaction (Verified 01/15/17 23:55) ADHESIVE Adverse Reaction (Uncoded 05/19/17 18:29) Other Increases skin sensitivity Home Medications: Ambulatory Orders Albuterol Sulfate [Proair Hfa] 2 puff INH Q6H PRN 11/21/16 Norgestimate-Ethinyl Estradiol [Ortho Tri-Cyclen] 1 tab PO DAILY 12/20/16 Albuterol Inhaler [Ventolin Hfa Inhaler] 108 mcg IN Q4HR PRN #1 inh 12/25/16 Review of Systems - Review of Systems Constitutional: States: no symptoms reported EENTM: States: no symptoms reported Respiratory: States: no symptoms reported Cardiology: States: no symptoms reported Gastrointestinal/Abdominal: States: no symptoms reported Genitourinary: States: no symptoms reported Musculoskeletal: States: see HPI Skin: States: no symptoms reported Neurological: States: no symptoms reported Endocrine: States: no symptoms reported Hematologic/Lymphatic: States: no symptoms reported Past Medical History (General) - Patient Medical History Hx Seizures: No Hx Stroke: No Hx Dementia: No Hx Asthma: Yes Hx of COPD: No Hx Cardiac Disorders: No Hx Congestive Heart Failure: No Hx Pacemaker: No Hx Hypertension: No Hx Thyroid Disease: No Hx Diabetes: No Hx Gastroesophageal Reflux: No Hx Renal Disease: No Hx Cancer: No Hx of HIV: No Hx Hepatitis C: No Hx MRSA: No Surgical History: appendectomy - Vaccination History Hx Tetanus, Diphtheria Vaccination: No Hx Influenza Vaccination: No Hx Pneumococcal Vaccination: No - Social History Hx Tobacco Use: No Hx Chewing Tobacco Use: No Hx Alcohol Use: Yes Hx Substance Use: No Hx Substance Use Treatment: No Hx Depression: No Hx Physical Abuse: No Hx Emotional Abuse: No Hx Suspected Abuse: No - Female History Patient is a Female of Child Bearing Age (10 -59 yrs old): Yes Hx Last Menstrual Period: 02/25/17 - still on her periods Patient : No Expected Date of Delivery:: 07/06/16 Hx Gestational Age: 25 Family Medical History - Family History Mother Family History: Unknown Living Status: Still Living Hx Family Asthma: Yes Hx Family Hypertension: Yes Hx Family;Other: Seizures Physical Exam - Physical Exam General Appearance: Alert Neck: full range of motion, supple Respiratory: lungs clear, normal breath sounds Cardiovascular/Chest: normal peripheral pulses, regular rate, rhythm Peripheral Pulses: dorsalis pedis,right: 2+, dorsalis pedis,left: 2+, posterior tibialis,right: 2+, posterior tibialis,left: 2+ Gastrointestinal/Abdominal: normal bowel sounds, non tender, soft Extremity: other - TTP over right lateal malleolus especially posteriorly. There is moderate edema just around the ankle. 5/5 strength to dorsiflexion/ plantarflexion/eversion/inversion of the right foot but it is very painful. 5/5 strength to flexion/extension of the right toes. Full sensation throughout the entire right foot and toes. Capillary refill less than toe seconds througout the entire right foot, toes, and toenail beds. Neurologic: no motor/sensory deficits, alert, normal mood/affect, oriented x 3 Skin Exam: normal color Lymphatic: no adenopathy Progress - Progress Progress: 10/24/17 18:28 Radiographs of the right ankle showed no fracture nor dislocation. There was soft tissue swelling. Patient given Toradol 30 mg IM x one. Care instructions given. E.R. warnings given. Questions were elicited and answered. The patient voiced understanding and agreement with the plan. Departure - Departure Clinical Impression: Sprain of right ankle or foot Disposition: Discharge to Home or Self Care Condition: Good Departure Forms: ED Discharge - Pt. Copy, Patient Portal Self Enrollment Instructions: DI for Leg Pain Diet: resume usual diet Activity: increase activity as tolerated Referrals: Isabell Wiley NP [Primary Care Provider] - 1-2 Weeks Rainer Rg MD [Active Staff] - 1-2 Weeks Home Medications: Ambulatory Orders Albuterol Sulfate [Proair Hfa] 2 puff INH Q6H PRN 11/21/16 Norgestimate-Ethinyl Estradiol [Ortho Tri-Cyclen] 1 tab PO DAILY 12/20/16 Albuterol Inhaler [Ventolin Hfa Inhaler] 108 mcg IN Q4HR PRN #1 inh 12/25/16 Additional Instructions: Ice to the painful area three times per day for three days then switch to heat 2 -3 times per day until healed. Use crutches for three days and then return to activity as tolerated. Elevate the foot above the heart while sleeping or sitting for the first three days. Use ibuprofen or tylenol for pain control. See Dr. Rg if there is no improvement in one week.
[2017-10-24 18:41] VITALS: BP 123/79; TEMP 98.9; O2SAT 99
== END 2017-10-24 18:41 | disposition home or self-care (01) ==
LOC: ER 17:39
DX: S93.401A Sprain of unspecified ligament of right ankle, initial encounter (principal); J45.909 Unspecified asthma, uncomplicated; Z88.8 Allergy status to other drugs, medicaments and biological substances; Z79.899 Other long term (current) drug therapy; X50.9XXA Other and unspecified overexertion or strenuous movements or postures, initial encounter; Y93.89 Activity, other specified; Y92.89 Other specified places as the place of occurrence of the external cause
CPT/HCPCS: 73610; J1885

== ENCOUNTER 2018-02-13 14:05 | Emergency (ER) | payer SELFPAY ==
[2018-02-13 14:18] VITALS: BP 122/64; TEMP 97.2; O2SAT 98
--- NOTE | 2018-02-13 14:29 | ED.PDOC ---
History of Present Illness - General Chief Complaint: Skin/Abrasion/Tear Stated Complaint: rash Time Seen by Provider: 02/13/18 14:17 Source: patient Exam Limitations: no limitations - History of Present Illness Initial Comments: the patient is a 22-year-old female presenting to the emergency room secondary to what appears to be a contact dermatitis to the anterior lower neck area. This appears to be due to exposure to some chemicals used to get rid of that bugs a few days ago. There is mild burning sensation but not really much itching. No other areas of rash. No difficulties with breathing. No blistering. There is only mild erythema. She has been applying cocoa butter. Timing/Duration: other - 3 days Severity: mild Improving Factors: nothing Worsening Factors: nothing Associated Symptoms: denies symptoms Allergies/Adverse Reactions: Allergies Soap Adverse Reaction (Intermediate, Verified 05/19/17 18:29) Rash Antibacterial soap Oxytocin [From Pitocin] Adverse Reaction (Verified 01/15/17 23:55) ADHESIVE Adverse Reaction (Uncoded 05/19/17 18:29) Other Increases skin sensitivity Home Medications: Ambulatory Orders Albuterol Sulfate [Proair Hfa] 2 puff INH Q6H PRN 11/21/16 Norgestimate-Ethinyl Estradiol [Ortho Tri-Cyclen] 1 tab PO DAILY 12/20/16 Albuterol Inhaler [Ventolin Hfa Inhaler] 108 mcg IN Q4HR PRN #1 inh 12/25/16 Review of Systems - Review of Systems Constitutional: States: no symptoms reported EENTM: States: no symptoms reported Respiratory: States: no symptoms reported Cardiology: States: no symptoms reported Gastrointestinal/Abdominal: States: no symptoms reported Genitourinary: States: no symptoms reported Musculoskeletal: States: no symptoms reported Skin: States: see HPI Neurological: States: no symptoms reported, anxiety Endocrine: States: no symptoms reported All other Systems: No Change from Baseline Past Medical History (General) - Patient Medical History Hx Seizures: No Hx Stroke: No Hx Dementia: No Hx Asthma: Yes Hx of COPD: No Hx Cardiac Disorders: No Hx Congestive Heart Failure: No Hx Pacemaker: No Hx Hypertension: No Hx Thyroid Disease: No Hx Diabetes: No Hx Gastroesophageal Reflux: No Hx Renal Disease: No Hx Cancer: No Hx of HIV: No Hx Hepatitis C: No Hx MRSA: No Surgical History: appendectomy - Vaccination History Hx Tetanus, Diphtheria Vaccination: No Hx Influenza Vaccination: No Hx Pneumococcal Vaccination: No - Social History Hx Tobacco Use: No Hx Chewing Tobacco Use: No Hx Alcohol Use: Yes Hx Substance Use: No Hx Substance Use Treatment: No Hx Depression: No Hx Physical Abuse: No Hx Emotional Abuse: No Hx Suspected Abuse: No - Female History Hx Last Menstrual Period: 02/25/17 - still on her periods Patient : No Expected Date of Delivery:: 07/06/16 Hx Gestational Age: 25 Family Medical History - Family History Mother Family History: Unknown Living Status: Still Living Hx Family Asthma: Yes Hx Family Hypertension: Yes Hx Family;Other: Seizures Physical Exam - Physical Exam General Appearance: Alert, Comfortable, No apparent distress Eye Exam: bilateral normal Ears, Nose, Throat: hearing grossly normal Neck: full range of motion, other - see history of present illness Respiratory: no respiratory distress, no accessory muscle use Cardiovascular/Chest: normal peripheral pulses, no edema Peripheral Pulses: radial,right: 2+, radial,left: 2+ Rectal Exam: deferred Extremity: normal inspection, no pedal edema, normal capillary refill 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 She has already rinsed the area. She can apply Eucerin cream 2-3 times daily to help reduce irritation and aid in healing. No evidence of any superimposed infection. ER warnings were given. Keep routine follow up with primary care doctor. Departure - Departure Clinical Impression: Contact dermatitis Qualifiers: Contact dermatitis type: irritant Contact dermatitis trigger: detergents Qualified Code(s): L24.0 - Irritant contact dermatitis due to detergents Disposition: Discharge to Home or Self Care Condition: Fair Departure Forms: ED Discharge - Pt. Copy, Patient Portal Self Enrollment Instructions: Contact Dermatitis (DC) Diet: regular diet Activity: increase activity as tolerated Referrals: Isabell Wiley NP [Primary Care Provider] - 1-2 Weeks Home Medications: Ambulatory Orders Albuterol Sulfate [Proair Hfa] 2 puff INH Q6H PRN 11/21/16 Norgestimate-Ethinyl Estradiol [Ortho Tri-Cyclen] 1 tab PO DAILY 12/20/16 Albuterol Inhaler [Ventolin Hfa Inhaler] 108 mcg IN Q4HR PRN #1 inh 12/25/16 Additional Instructions: the patient's 22-year-old female presenting to the emergency room secondary to what appears to be a contact dermatitis to the anterior lower neck. She has already rinsed the area. She can apply Eucerin cream 2-3 times daily to help reduce irritation and aid in healing. No evidence of any superimposed infec tion. ER warnings were given. Keep routine follow up with primary care doctor.
== END 2018-02-13 14:43 | disposition home or self-care (01) ==
LOC: ER 14:05
DX: L24.0 Irritant contact dermatitis due to detergents (principal); J45.909 Unspecified asthma, uncomplicated; Z88.8 Allergy status to other drugs, medicaments and biological substances

== ENCOUNTER → 2018-04-28 | Outpatient (CLI) | payer MEDICAID ==
--- NOTE | 2018-04-29 10:13 | US ---
EXAM DESCRIPTION: Gall Bladder: ULTRASOUND. CLINICAL HISTORY: RIGHT UPPER QUADRANT PAIN COMPARISON: None. TECHNIQUE: Transabdominal scanning: Rodarte-scale and Doppler modes. FINDINGS: Gallbladder: normal size, shape, echogenicity; no intraluminal stones or sludge. No fluid around the gallbladder. No wall thickening. 1.2 mm Non-tender with transducer pressure. Common bile duct: caliber 2.0 mm within normal limits. Liver: normal echogenicity; contour liver capsule smooth where seen. No fluid around the liver. Intrahepatic biliary ducts normal caliber. Doppler hepatopedal flow portal vein.. Long axis right lobe 15.4 Pancreas: normal size and echogenicity. Duct not seen. Aorta: Normal caliber from the proximal segment to the distal bifurcation. Right kidney: 12.2 cm Long axis. Increased cortical echogenicity similar to the liver, with normal cortical thickness. No hydronephrosis or perinephric fluid. IMPRESSION: Right renal cortical echogenicity similar to the liver which would be considered abnormal in the appropriate clinical setting. Consider renal function evaluation. Otherwise unremarkable ultrasound of the right upper quadrant of the abdomen. Electronically signed by: Beka Vallejo MD 04/29/2018 10:10 AM CDT
== END ==
LOC: US 10:00
PROVIDERS: ATTEND Nurse Practitioner Family
DX: R10.11 Right upper quadrant pain (principal)

== ENCOUNTER → 2018-07-18 | Outpatient (CLI) | payer MEDICAID, OTHER ==
--- NOTE | 2018-07-18 16:39 | US ---
EXAM DESCRIPTION: Pelvic,Non-OB: Ultrasound. CLINICAL HISTORY: 22 years Female CYST OF OVARY. 21 weeks IUP. COMPARISON: Ultrasound gallbladder 04/28/2018. TECHNIQUE: Transcutaneous scanning through the urine filled bladder. Rodarte-scale and Doppler modes. FINDINGS: Uterus 19.5 x 18.0 x 11.2 cm. Intrauterine gestation. The myometrium appears heterogeneous. The uterus is not retroverted. Cervix internal os visualized.. Cul-de-sac contains no fluid. heart rate 149 bpm. Posterior placenta. Right ovary 8.1 x 6.0 x 6.0 cm. Normal color Doppler vascularity. 5.2 x 5.2 x 5.3 cm simple ovarian cyst with thin najera, no internal echoes, posterior acoustic enhancement, and nonvascular. No septations or nodules. No adnexal mass or free fluid. Left ovary not visualized. No adnexal mass or free fluid. IMPRESSION: 1. 5.3 cm simple right ovarian cyst. 21 week living intrauterine . No free fluid in the cul-de-sac or around the right ovary. Left ovary was not visualized. No adnexal mass. Posterior placenta. Electronically signed by: Beka Vallejo MD 07/18/2018 4:37 PM CDT
== END ==
LOC: US 15:28
PROVIDERS: ATTEND Emergency Medicine
DX: O34.80 Maternal care for other abnormalities of pelvic organs, unspecified trimester (principal); Z3A.21 21 weeks gestation of pregnancy

== ENCOUNTER → 2018-10-04 | Outpatient (CLI) | payer OTHER ==
--- NOTE | 2018-10-04 18:17 | US ---
EXAM DESCRIPTION: Renal: Ultrasound. CLINICAL HISTORY: 22 years Female HEMATURIA. 33 week intrauterine gestation. COMPARISON: Ultrasound pelvis 07/18/2018. TECHNIQUE: Transcutaneous scanning: Two-dimensional and Doppler modes. FINDINGS: Right kidney measures 12.2 x 6.3 x 6.2 cm; mid-renal cortical thickness 14 mm. . Increased echogenicity of the cortex equal to the liver. Mild hydronephrosis No echogenic stones. Smooth contour of the kidney with no perinephric fluid. Normal vascularity. Proximal ureter visualized. Left kidney measures 11.9 x 6.1 x 5.7 cm; mid-renal cortical thickness normal.. Normal cortical echogenicity. No hydronephrosis. No echogenic stones. Smooth contour of the kidney with no perinephric fluid. Normal vascularity.. Proximal ureter not visualized. Urinary bladder not visualized. Abdominal aorta: not measured. IMPRESSION: 1. Mild hydronephrosis in the right kidney most likely due to compression of the right ureter; 33 weeks intrauterine gestation. Increased cortical echogenicity may be due to back pressure. No echogenic stones or perinephric fluid. Proximal ureter visualized. 2. Left kidney is unremarkable. Ureter not visualized. Electronically signed by: Beka Vallejo MD 10/04/2018 6:15 PM CDT
== END ==
LOC: US 08:21
PROVIDERS: ATTEND Emergency Medicine
DX: N13.30 Unspecified hydronephrosis (principal); Z33.1 Pregnant state, incidental; Z3A.33 33 weeks gestation of pregnancy

== ENCOUNTER 2018-10-16 20:38 | Emergency (ER) | payer OTHER ==
--- NOTE | 2018-10-16 21:20 | ED.PDOC ---
History of Present Illness - General Chief Complaint: General Stated Complaint: Congestion Time Seen by Provider: 10/16/18 21:17 - History of Present Illness Initial Comments: 22 yo F presents with sinus pressure. She has hx of sinus infection. Reports congestion and pressure progressively worsening over the past few days. She is 35 weeks . Denies fever. No other reported issues. Timing/Duration: 1 week Severity: mild Allergies/Adverse Reactions: Allergies Soap Adverse Reaction (Intermediate, Verified 05/19/17 18:29) Rash Antibacterial soap Oxytocin [From Pitocin] Adverse Reaction (Verified 01/15/17 23:55) ADHESIVE Adverse Reaction (Uncoded 05/19/17 18:29) Other Increases skin sensitivity Home Medications: Ambulatory Orders Albuterol Sulfate [Proair Hfa] 2 puff INH Q6H PRN 11/21/16 Norgestimate-Ethinyl Estradiol [Ortho Tri-Cyclen] 1 tab PO DAILY 12/20/16 Albuterol Inhaler [Ventolin Hfa Inhaler] 108 mcg IN Q4HR PRN #1 inh 12/25/16 Amoxicillin 500 mg PO TID 7 Days tab 10/16/18 Review of Systems - Review of Systems Constitutional: Denies: fever, weakness EENTM: States: nose congestion. Denies: blurred vision, ear pain, nose pain, throat pain Respiratory: Denies: cough, short of breath, wheezing Cardiology: Denies: edema, palpitations Gastrointestinal/Abdominal: Denies: nausea, vomiting Musculoskeletal: Denies: back pain, neck pain Skin: Denies: lesions, rash Neurological: Denies: headache, numbness, weakness Past Medical History (General) - Patient Medical History Hx Seizures: No Hx Stroke: No Hx Dementia: No Hx Asthma: Yes Hx of COPD: No Hx Cardiac Disorders: No Hx Congestive Heart Failure: No Hx Pacemaker: No Hx Hypertension: No Hx Thyroid Disease: No Hx Diabetes: Yes Hx Gastroesophageal Reflux: No Hx Renal Disease: No Hx Cancer: No Hx of HIV: No Hx Hepatitis C: No Hx MRSA: No Surgical History: appendectomy - Vaccination History Hx Tetanus, Diphtheria Vaccination: No Hx Influenza Vaccination: No Hx Pneumococcal Vaccination: No - Social History Hx Tobacco Use: No Hx Chewing Tobacco Use: No Hx Alcohol Use: No Hx Substance Use: No Hx Substance Use Treatment: No Hx Depression: No Hx Physical Abuse: No Hx Emotional Abuse: No Hx Suspected Abuse: No - Female History Patient is a Female of Child Bearing Age (10 -59 yrs old): Yes Hx Last Menstrual Period: 02/25/17 - still on her periods Patient : Yes Expected Date of Delivery:: 11/15/18 Hx Gestational Age: 25 Family Medical History - Family History Mother Family History: Unknown Living Status: Still Living Hx Family Asthma: Yes Hx Family Hypertension: Yes Hx Family;Other: Seizures Physical Exam - Physical Exam General Appearance: Alert, Well Developed, Well Nourished Eye Exam: bilateral normal Ears, Nose, Throat: normal pharynx, nasal congestion - with sinus tenderness Neck: non-tender, full range of motion, supple Respiratory: chest non-tender, lungs clear Cardiovascular/Chest: normal peripheral pulses, regular rate, rhythm Gastrointestinal/Abdominal: non tender, soft - gravid abdomen Back Exam: normal inspection, no vertebral tenderness Extremity: normal range of motion, non-tender 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 She has sinus tenderness. Will start on abx. She is to follow her OB's instructions on symptomatic medications. The patient is to follow up with her OB closely. She is to return with any new or worse symptoms. Departure - Departure Clinical Impression: Sinusitis Qualifiers: Sinusitis location: maxillary Chronicity: acute Recurrence: non-recurrent Qualified Code(s): J01.00 - Acute maxillary sinusitis, unspecified Time of Disposition: 21:26 Disposition: Discharge to Home or Self Care Departure Forms: ED Discharge - Pt. Copy, Patient Portal Self Enrollment Instructions: Sinusitis, Adult (DC) Referrals: Daisy Parsons NP [Primary Care Provider] - 1-2 Weeks Prescriptions: Amoxicillin 500 mg PO TID 7 Days tab Home Medications: Ambulatory Orders Albuterol Sulfate [Proair Hfa] 2 puff INH Q6H PRN 11/21/16 Norgestimate-Ethinyl Estradiol [Ortho Tri-Cyclen] 1 tab PO DAILY 12/20/16 Albuterol Inhaler [Ventolin Hfa Inhaler] 108 mcg IN Q4HR PRN #1 inh 12/25/16 Amoxicillin 500 mg PO TID 7 Days tab 10/16/18
[2018-10-16 21:45] VITALS: BP 118/74; TEMP 97.9; O2SAT 99
== END 2018-10-16 21:45 | disposition home or self-care (01) ==
LOC: ER 20:38
DX: O99.513 Diseases of the respiratory system complicating pregnancy, third trimester (principal); J01.00 Acute maxillary sinusitis, unspecified; J45.909 Unspecified asthma, uncomplicated; O24.113 Pre-existing type 2 diabetes mellitus, in pregnancy, third trimester; Z3A.35 35 weeks gestation of pregnancy; Z79.899 Other long term (current) drug therapy; Z88.8 Allergy status to other drugs, medicaments and biological substances

== ENCOUNTER 2019-02-02 13:02 | Emergency (ER) | payer SELFPAY ==
[2019-02-02 13:32] VITALS: TEMP 98.4; O2SAT 99
--- NOTE | 2019-02-02 14:27 | ED.PDOC ---
History of Present Illness - General Chief Complaint: Problem Stated Complaint: right flank pain Time Seen by Provider: 02/02/19 13:09 Source: patient Exam Limitations: no limitations - History of Present Illness Initial Comments: the patient is a 23 yo feml e presenting to the er due to acute right low back pain this am for the lat 3 hours. no trauma. no radiation. adjacent to l5-s1 on the right. palpable spasm. known scoliosis. no neuro changes. no urinary changes. no fever. no constipation. Timing/Duration: 4-6 hours Severity: moderate Improving Factors: immobilization Worsening Factors: movement Associated Symptoms: denies symptoms Allergies/Adverse Reactions: Allergies Soap Adverse Reaction (Intermediate, Verified 05/19/17 18:29) Rash Antibacterial soap Oxytocin [From Pitocin] Adverse Reaction (Verified 01/15/17 23:55) ADHESIVE Adverse Reaction (Uncoded 05/19/17 18:29) Other Increases skin sensitivity Home Medications: Ambulatory Orders Albuterol Sulfate [Proair Hfa] 2 puff INH Q6H PRN 11/21/16 Norgestimate-Ethinyl Estradiol [Ortho Tri-Cyclen] 1 tab PO DAILY 12/20/16 Albuterol Inhaler [Ventolin Hfa Inhaler] 108 mcg IN Q4HR PRN #1 inh 12/25/16 Amoxicillin 500 mg PO TID 7 Days tab 10/16/18 Cyclobenzaprine HCl [Flexeril] 5 mg PO TID PRN #30 tab 02/02/19 predniSONE [Prednisone] 20 mg PO DAILY #5 tab 02/02/19 Review of Systems - Review of Systems Constitutional: States: no symptoms reported EENTM: States: no symptoms reported Respiratory: States: no symptoms reported Cardiology: States: no symptoms reported Gastrointestinal/Abdominal: States: no symptoms reported Genitourinary: States: no symptoms reported Musculoskeletal: States: back pain Skin: States: no symptoms reported Neurological: States: no symptoms reported Endocrine: States: no symptoms reported All other Systems: No Change from Baseline Past Medical History (General) - Patient Medical History Hx Seizures: No Hx Stroke: No Hx Dementia: No Hx Asthma: Yes Hx of COPD: No Hx Cardiac Disorders: No Hx Congestive Heart Failure: No Hx Pacemaker: No Hx Hypertension: No Hx Thyroid Disease: No Hx Diabetes: Yes Hx Gastroesophageal Reflux: No Hx Renal Disease: No Hx Cancer: No Hx of HIV: No Hx Hepatitis C: No Hx MRSA: No Surgical History: appendectomy, other - Vaccination History Hx Tetanus, Diphtheria Vaccination: No Hx Influenza Vaccination: No Hx Pneumococcal Vaccination: No - Social History Hx Tobacco Use: No Hx Chewing Tobacco Use: No Hx Alcohol Use: No Hx Substance Use: No Hx Substance Use Treatment: No Hx Depression: No Hx Physical Abuse: No Hx Emotional Abuse: No Hx Suspected Abuse: No - Female History Patient is a Female of Child Bearing Age (10 -59 yrs old): Yes Hx Last Menstrual Period: 02/25/17 - still on her periods Patient : Yes Expected Date of Delivery:: 11/15/18 Hx Gestational Age: 25 Family Medical History - Family History Mother Family History: Unknown Living Status: Still Living Hx Family Asthma: Yes Hx Family Hypertension: Yes Hx Family;Other: Seizures Physical Exam - Physical Exam General Appearance: Alert, Comfortable, No apparent distress Eye Exam: bilateral normal Ears, Nose, Throat: hearing grossly normal, normal pharynx Neck: full range of motion Respiratory: no respiratory distress, no accessory muscle use Cardiovascular/Chest: normal peripheral pulses, no edema, other - regular rate Peripheral Pulses: radial,right: 2+, radial,left: 2+ Gastrointestinal/Abdominal: non tender, soft Rectal Exam: deferred Back Exam: no vertebral tenderness, other - see hpi Extremity: normal range of motion, non-tender, normal inspection, no pedal edema, normal capillary refill 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, alert, normal mood/affect, oriented x 3 Skin Exam: normal color Comments: Vital Signs - 24 hr 02/02/19 13:27 Temperature 98.4 F Pulse Rate [ 82 right brachial] Respiratory 20 Rate Blood Pressure 106/65 [right brachial ] O2 Sat by Pulse 99 Oximetry Progress - Progress Progress: 02/02/19 14:28 Laboratory Results - last 24 hr 02/02/19 02/02/19 13:35 13:35 Urine Color Yellow Urine Appearance Clear Urine pH 6.0 Ur Specific [place] >= 1.030 Urine Protein 100 H Urine Glucose (UA) Negative Urine Ketones Negative Urine Blood Trace-lysed H Urine Nitrite Negative Urine Bilirubin Negative Urine Urobilinogen 0.2 Ur Leukocyte Esterase Negative Urine RBC 1-3 Urine WBC 0 Ur Epithelial Cells 3-5 Urine Bacteria 0 Urine HCG, Qual Negative pt is here with right low back pain since this am. urine is clear. no trauma. muscle spasm is palpable. she needs to increase fluid intake. use topical heat. she needs to do stretches and ultimately exercises that strengthens muscles anterior to the spine such as swimming, rowing or biking. motrin will help and she will be written for some prednisone and flexeril. er warnings. follow up with pcp next week. savage kim [id number] Departure - Departure Clinical Impression: Low back pain Qualifiers: Chronicity: acute Back pain laterality: right Sciatica presence: without sciatica Qualified Code(s): M54.5 - Low back pain Disposition: Discharge to Home or Self Care Condition: Fair Departure Forms: ED Discharge - Pt. Copy, Patient Portal Self Enrollment Instructions: Low Back Pain (DC) Diet: regular diet Activity: increase activity as tolerated Referrals: Daisy Parsons NP [Primary Care Provider] - 1-2 Weeks Prescriptions: Cyclobenzaprine HCl [Flexeril] 5 mg PO TID PRN #30 tab PRN Reason: Muscle Spasms predniSONE [Prednisone] 20 mg PO DAILY #5 tab Home Medications: Ambulatory Orders Albuterol Sulfate [Proair Hfa] 2 puff INH Q6H PRN 11/21/16 Norgestimate-Ethinyl Estradiol [Ortho Tri-Cyclen] 1 tab PO DAILY 12/20/16 Albuterol Inhaler [Ventolin Hfa Inhaler] 108 mcg IN Q4HR PRN #1 inh 12/25/16 Amoxicillin 500 mg PO TID 7 Days tab 10/16/18 Cyclobenzaprine HCl [Flexeril] 5 mg PO TID PRN #30 tab 02/02/19 predniSONE [Prednisone] 20 mg PO DAILY #5 tab 02/02/19 Additional Instructions: pt is here with right low back pain since this am. urine is clear. no trauma. muscle spasm is palpable. she needs to increase fluid intake. use topical heat. she needs to do stretches and ultimately exercises that strengthens muscles anterior to the spine such as swimming, rowing or biking. motrin will help and she will be written for some prednisone and flexeril. er warnings. follow up with pcp next week.
[2019-02-02 14:56] VITALS: BP 102/65
== END 2019-02-02 14:50 | disposition home or self-care (01) ==
LOC: ER 13:02
DX: M54.5 Low back pain (principal); M41.9 Scoliosis, unspecified; J45.909 Unspecified asthma, uncomplicated; E11.9 Type 2 diabetes mellitus without complications; Z79.899 Other long term (current) drug therapy; Z88.8 Allergy status to other drugs, medicaments and biological substances; Z90.49 Acquired absence of other specified parts of digestive tract

== ENCOUNTER 2019-03-19 17:23 | Emergency (ER) | payer SELFPAY ==
[2019-03-19 17:47] VITALS: TEMP 97.4; O2SAT 100
[2019-03-19] MEDS ORDERED: SODIUM CHLORIDE 0.9% 1000ML 1,000 ML IVS ONE (17:56)
[2019-03-19] MEDS ORDERED: methylPREDNISolone SODIUM SUC 125 MG/2 ML VIAL IV ONE (17:56)
[2019-03-19] MEDS ORDERED: diphenhydrAMINE HCL 50 MG/ML VIAL IV ONE (18:05)
--- NOTE | 2019-03-19 18:41 | ED.PDOC ---
History of Present Illness - General Chief Complaint: General Stated Complaint: Pt feels funny after using Orajel Time Seen by Provider: 03/19/19 17:55 - History of Present Illness Initial Comments: c/o having intermittent dizziness , palpitation and headaches after taking the oragel , lasting for few mins , no chest pain or sob Severity: moderate Improving Factors: nothing Worsening Factors: nothing Associated Symptoms: headaches Allergies/Adverse Reactions: Allergies Soap Adverse Reaction (Intermediate, Verified 05/19/17 18:29) Rash Antibacterial soap Oxytocin [From Pitocin] Adverse Reaction (Verified 01/15/17 23:55) ADHESIVE Adverse Reaction (Uncoded 05/19/17 18:29) Other Increases skin sensitivity Home Medications: Ambulatory Orders Albuterol Sulfate [Proair Hfa] 2 puff INH Q6H PRN 11/21/16 Norgestimate-Ethinyl Estradiol [Ortho Tri-Cyclen] 1 tab PO DAILY 12/20/16 RX: Albuterol Inhaler [Ventolin Hfa Inhaler] 108 mcg IN Q4HR PRN #1 inh 12/25/16 RX: Amoxicillin 500 mg PO TID 7 Days tab 10/16/18 Cyclobenzaprine HCl [Flexeril] 5 mg PO TID PRN #30 tab 02/02/19 predniSONE [Prednisone] 20 mg PO DAILY #5 tab 02/02/19 Review of Systems - Review of Systems Constitutional: States: no symptoms reported EENTM: States: no symptoms reported Respiratory: States: no symptoms reported Cardiology: States: see HPI Gastrointestinal/Abdominal: States: no symptoms reported Genitourinary: States: no symptoms reported Musculoskeletal: States: no symptoms reported Skin: States: no symptoms reported Neurological: States: no symptoms reported Endocrine: States: no symptoms reported Hematologic/Lymphatic: States: no symptoms reported Past Medical History (General) - Patient Medical History Hx Seizures: No Hx Stroke: No Hx Dementia: No Hx Asthma: Yes Hx of COPD: No Hx Cardiac Disorders: No Hx Congestive Heart Failure: No Hx Pacemaker: No Hx Hypertension: No Hx Thyroid Disease: No Hx Diabetes: No Hx Gastroesophageal Reflux: No Hx Renal Disease: No Hx Cancer: No Hx of HIV: No Hx Hepatitis C: No Hx MRSA: No Surgical History: appendectomy, other - Vaccination History Hx Tetanus, Diphtheria Vaccination: No Hx Influenza Vaccination: No Hx Pneumococcal Vaccination: No - Social History Hx Tobacco Use: No Hx Chewing Tobacco Use: No Hx Alcohol Use: Yes - Social use Hx Substance Use: No Hx Substance Use Treatment: No Hx Depression: No Hx Physical Abuse: No Hx Emotional Abuse: No Hx Suspected Abuse: No - Female History Patient is a Female of Child Bearing Age (10 -59 yrs old): Yes Hx Last Menstrual Period: 02/25/17 - still on her periods Patient : No Expected Date of Delivery:: 11/15/18 Hx Gestational Age: 25 Family Medical History - Family History Mother Family History: Unknown Living Status: Still Living Hx Family Asthma: Yes Hx Family Hypertension: Yes Hx Family;Other: Seizures Physical Exam - Physical Exam General Appearance: Alert, Comfortable Ears, Nose, Throat: hearing grossly normal, normal ENT inspection Neck: non-tender, full range of motion, supple Respiratory: lungs clear, normal breath sounds, no respiratory distress, no accessory muscle use Cardiovascular/Chest: regular rate, rhythm Gastrointestinal/Abdominal: non tender, soft, no organomegaly Back Exam: normal inspection, no CVA tenderness, no vertebral tenderness Extremity: normal range of motion, non-tender, normal inspection 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, no motor/sensory deficits, alert, normal mood/affect Progress - Results/Orders Results/Orders: 03/19/19 17:56 Sodium Chloride 0.9% 1000ML [Ns 1000 ml] 1,000 ml IVS ONCE 03/19/19 18:00 EKG STAT Laboratory Results WBC 7.1 K/mm3 (4.8-10.8) 03/19/19 18:15 RBC 4.44 M/mm3 (4.20-5.40) 03/19/19 18:15 Hgb 12.7 gm/dL (12.0-16.0) 03/19/19 18:15 Hct 38.3 % (36.0-47.0) 03/19/19 18:15 MCV 86.3 fl (81.0-99.0) 03/19/19 18:15 MCH 28.6 pg (27.0-31.0) 03/19/19 18:15 MCHC 33.2 g/dL (33.0-37.0) 03/19/19 18:15 RDW 14.3 % (11.5-14.5) 03/19/19 18:15 Plt Count 347 K/mm3 (130-400) 03/19/19 18:15 MPV 8.0 fl (7.40-10.4) 03/19/19 18:15 Absolute Neuts (auto) 3.30 K/uL (1.8-6.8) 03/19/19 18:15 Absolute Lymphs (auto) 2.80 K/uL (1.0-3.4) 03/19/19 18:15 Absolute Monos (auto) 0.70 K/uL (0.2-0.8) 03/19/19 18:15 Absolute Eos (auto) 0.20 K/uL (0.0-0.4) 03/19/19 18:15 Absolute Basos (auto) 0.10 K/uL (0.0-0.1) 03/19/19 18:15 Neutrophils % 45.8 % (42.0-78.0) 03/19/19 18:15 Lymphocytes % 39.5 % (20.0-50.0) 03/19/19 18:15 Monocytes % 10.5 % (2.0-9.0) H 03/19/19 18:15 Eosinophils % 3.3 % (1.0-5.0) 03/19/19 18:15 Basophils % 0.9 % (0.0-2.0) 03/19/19 18:15 Sodium 137 mmol/L (135-145) 03/19/19 18:15 Potassium 4.0 mmol/L (3.6-5.0) 03/19/19 18:15 Chloride 104 mmol/L (101-111) 03/19/19 18:15 Carbon Dioxide 24 mmol/L (21-31) 03/19/19 18:15 Anion Gap 13.0 (12-18) 03/19/19 18:15 BUN 13 mg/dL (7-18) 03/19/19 18:15 Creatinine 0.50 mg/dL (0.6-1.3) L 03/19/19 18:15 BUN/Creatinine Ratio 26.0 (10-20) H 03/19/19 18:15 Random Glucose 87 mg/dL (70-105) 03/19/19 18:15 Serum Osmolality 273.3 mOsm/L (275-295) L 03/19/19 18:15 Calcium 9.9 mg/dL (8.4-10.2) 03/19/19 18:15 Total Bilirubin 0.3 mg/dL (0.2-1.0) 03/19/19 18:15 AST 22 IU/L (10-42) 03/19/19 18:15 ALT 41 IU/L (10-60) 03/19/19 18:15 Alkaline Phosphatase 78 IU/L (42-121) 03/19/19 18:15 Serum Total Protein 7.7 gm/dL (6.4-8.2) 03/19/19 18:15 Albumin 4.4 g/dl (3.2-5.5) 03/19/19 18:15 Globulin 3.3 gm/dL (2.3-3.5) 03/19/19 18:15 Albumin/Globulin Ratio 1.3 (1.1-1.9) 03/19/19 18:15 - EKG/XRAY/CT EKG: Sinus, no ST T wave changes Departure - Departure Clinical Impression: General symptom, Drug allergy, Dizziness Time of Disposition: 18:44 Disposition: Discharge to Home or Self Care Departure Forms: ED Discharge - Pt. Copy, Patient Portal Self Enrollment Diet: resume usual diet Activity: increase activity as tolerated, walking as tolerated Referrals: YASMIN SAMS [Primary Care Provider] - 1-2 Weeks Home Medications: Ambulatory Orders Albuterol Sulfate [Proair Hfa] 2 puff INH Q6H PRN 11/21/16 Norgestimate-Ethinyl Estradiol [Ortho Tri-Cyclen] 1 tab PO DAILY 12/20/16 RX: Albuterol Inhaler [Ventolin Hfa Inhaler] 108 mcg IN Q4HR PRN #1 inh 12/25/16 RX: Amoxicillin 500 mg PO TID 7 Days tab 10/16/18 Cyclobenzaprine HCl [Flexeril] 5 mg PO TID PRN #30 tab 02/02/19 predniSONE [Prednisone] 20 mg PO DAILY #5 tab 02/02/19
[2019-03-19 19:22] VITALS: BP 133/78
== END 2019-03-19 19:24 | disposition home or self-care (01) ==
LOC: ER 17:23
DX: R42 Dizziness and giddiness (principal); R00.2 Palpitations; R51 Headache; T41.3X5A Adverse effect of local anesthetics, initial encounter; J45.909 Unspecified asthma, uncomplicated; Z88.8 Allergy status to other drugs, medicaments and biological substances; Z79.899 Other long term (current) drug therapy
CPT/HCPCS: 80053; 85025; 93005; J1200; J2930; J7030

== ENCOUNTER 2019-04-01 12:02 | Emergency (ER) | payer SELFPAY ==
--- NOTE | 2019-04-01 12:07 | ED.PDOC ---
History of Present Illness - General Time Seen by Provider: 04/01/19 12:04 Source: patient - History of Present Illness Initial Comments: 23 yo female who presents with cc of diarrhea and nausea. Onset of illness this morning at 7 am when she woke up. Reports approx 5-10 episodes of watery diarrhea. Also reports constant nausea but no emesis. Reports constant BL 7/10 stabbing flank pain without radiation, nothing taken for relief. Also states feels generally weak and dehydrated as well as urinary frequency. Denies fevers, chills, cough/congestion, sore throat, chest pain, dyspnea. Has had hx of appendectomy and 3 c-sections in the past. Family members have been ill recently with similar sx's. Currently on her period. Allergies/Adverse Reactions: Allergies Soap Adverse Reaction (Intermediate, Verified 04/01/19 12:32) Rash Antibacterial soap Oxytocin [From Pitocin] Adverse Reaction (Verified 04/01/19 12:32) ADHESIVE Adverse Reaction (Uncoded 05/19/17 18:29) Other Increases skin sensitivity Home Medications: Ambulatory Orders Ondansetron Odt [Zofran ODT] 8 mg PO Q8H PRN 5 Days #10 tab 04/01/19 Review of Systems - Review of Systems Review of Systems: 04/01/19 12:16 as per HPI All other Systems: Reviewed and Negative Past Medical History (General) - Patient Medical History Hx Seizures: No Hx Stroke: No Hx Dementia: No Hx Asthma: Yes Hx of COPD: No Hx Cardiac Disorders: No Hx Congestive Heart Failure: No Hx Pacemaker: No Hx Hypertension: No Hx Thyroid Disease: No Hx Diabetes: No Hx Gastroesophageal Reflux: No Hx Renal Disease: No Hx Cancer: No Hx of HIV: No Hx Hepatitis C: No Hx MRSA: No - Vaccination History Hx Tetanus, Diphtheria Vaccination: No Hx Influenza Vaccination: No Hx Pneumococcal Vaccination: No - Social History Hx Tobacco Use: No Hx Chewing Tobacco Use: No Hx Alcohol Use: Yes - Social use Hx Substance Use: No Hx Substance Use Treatment: No Hx Depression: No Hx Physical Abuse: No Hx Emotional Abuse: No Hx Suspected Abuse: No - Female History Hx Last Menstrual Period: 02/25/17 - still on her periods Patient : No Expected Date of Delivery:: 11/15/18 Hx Gestational Age: 25 Family Medical History - Family History Mother Family History: Unknown Living Status: Still Living Hx Family Asthma: Yes Hx Family Hypertension: Yes Hx Family;Other: Seizures Physical Exam - Physical Exam General Appearance: Alert, No apparent distress Eye Exam: bilateral normal Ears, Nose, Throat: hearing grossly normal, normal pharynx Neck: non-tender, full range of motion, supple, normal inspection Respiratory: lungs clear, normal breath sounds, no respiratory distress, no accessory muscle use Cardiovascular/Chest: normal peripheral pulses, regular rate, rhythm, no edema, no gallop, no JVD, no murmur Peripheral Pulses: radial,right: 2+, radial,left: 2+ Gastrointestinal/Abdominal: non tender, soft, no organomegaly, abnormal bowel sounds - increased Back Exam: normal inspection, no CVA tenderness, no vertebral tenderness Extremity: normal range of motion, non-tender, normal inspection, no pedal edema, no calf tenderness 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 Consider also foodborne illness vs colitis vs flu vs UTI vs other -labs, UA, hcg, flu -place PIV, 1 L NS bolus, Zofran 4 mg IV, Toradol 30 mg IV 04/01/19 14:40 -UA with large blood but otherwise unremarkable - due to currently being on her period. Pain and nausea markedly improved in ED, pt remains stable. Remainder of labwork pretty unremarkable. Suspect acute gastroenteritis, doubt any emergent etiologies. Will dc home with Zofran Rx, return warnings discussed. Advised close PCP f/u & repeat UA in clinic in 1-2 weeks. Ramesh Merida MD Billing #[id number] 04/01/19 12:05 Sodium Chloride 0.9% (Flush) [Saline Flush Syringe] 10 ml IV PRN PRN Laboratory Results - last 24 hr 04/01/19 04/01/19 04/01/19 12:19 12:40 12:40 WBC 9.5 RBC 4.44 Hgb 12.7 Hct 38.8 MCV 87.4 MCH 28.5 MCHC 32.6 L RDW 14.5 Plt Count 321 MPV 8.0 Absolute Neuts (auto) 7.50 H Absolute Lymphs (auto) 1.30 Absolute Monos (auto) 0.60 Absolute Eos (auto) 0.10 Absolute Basos (auto) 0.00 Neutrophils % 78.9 H Lymphocytes % 13.4 L Monocytes % 6.3 Eosinophils % 1.0 Basophils % 0.4 Sodium 138 Potassium 3.8 Chloride 107 Carbon Dioxide 22 Anion Gap 12.8 BUN 13 Creatinine 0.53 L BUN/Creatinine Ratio 24.5 H Random Glucose 135 H Serum Osmolality 277.8 Calcium 9.3 Total Bilirubin 0.6 Direct Bilirubin 0.1 Indirect Bilirubin 0.5 AST 19 ALT 29 Alkaline Phosphatase 63 Serum Total Protein 7.4 Albumin 4.2 Amylase 30 Lipase 25 Urine Color Urine Appearance Urine pH Ur Specific [place] Urine Protein Urine Glucose (UA) Urine Ketones Urine Blood Urine Nitrite Urine Bilirubin Urine Urobilinogen Ur Leukocyte Esterase Urine RBC Urine WBC Ur Epithelial Cells Urine Bacteria Urine HCG, Qual Negative 04/01/19 14:18 WBC RBC Hgb Hct MCV MCH MCHC RDW Plt Count MPV Absolute Neuts (auto) Absolute Lymphs (auto) Absolute Monos (auto) Absolute Eos (auto) Absolute Basos (auto) Neutrophils % Lymphocytes % Monocytes % Eosinophils % Basophils % Sodium Potassium Chloride Carbon Dioxide Anion Gap BUN Creatinine BUN/Creatinine Ratio Random Glucose Serum Osmolality Calcium Total Bilirubin Direct Bilirubin Indirect Bilirubin AST ALT Alkaline Phosphatase Serum Total Protein Albumin Amylase Lipase Urine Color Yellow Urine Appearance Cloudy Urine pH 6.0 Ur Specific [place] >= 1.030 Urine Protein Trace Urine Glucose (UA) Negative Urine Ketones Negative Urine Blood Large H Urine Nitrite Negative Urine Bilirubin Negative Urine Urobilinogen 0.2 Ur Leukocyte Esterase Negative Urine RBC Tntc H Urine WBC 0 Ur Epithelial Cells 5-10 Urine Bacteria Rare Urine HCG, Qual Departure - Departure Clinical Impression: Gastroenteritis Time of Disposition: 13:53 Disposition: Discharge to Home or Self Care Condition: Fair Departure Forms: ED Discharge - Pt. Copy, Patient Portal Self Enrollment Instructions: Viral Gastroenteritis, Adult (DC) Diet: resume usual diet Referrals: YASMIN SAMS [Primary Care Provider] - 1-2 Weeks Prescriptions: Ondansetron Odt [Zofran ODT] 8 mg PO Q8H PRN 5 Days #10 tab PRN Reason: Nausea Home Medications: Ambulatory Orders Ondansetron Odt [Zofran ODT] 8 mg PO Q8H PRN 5 Days #10 tab 04/01/19 Additional Instructions: Remain well-hydrated and gradually advance diet and activity level as tolerated. Take the Zofran as needed for nausea. Return if you develop any concerning symptoms such as worsening abdominal pain, blood in the urine or pain with urination, intractable nausea & vomiting, large volume or frequent diarrhea (>10 episodes per day), lack of urination for more than 6-8 hours, dry mouth, dry eyes, poor fluid intake, or other signs of dehydration, etc... Follow up with your PCP in 1-2 weeks or sooner as needed. You will need repeat urinalysis done in 1-2 weeks to ensure no blood in the urine while not on your period.
[2019-04-01 12:32] VITALS: O2SAT 99
[2019-04-01] MEDS: SODIUM CHLORIDE 0.9% 1000ML 1,000 ML IVS ONE (12:34)
[2019-04-01] MEDS: KETOROLAC TROMETHAMINE INJ 30 MG/ML VIAL IV ONE (12:34)
[2019-04-01] MEDS: ONDANSETRON INJ 4 MG/2 ML VIAL IV ONE (12:34)
[2019-04-01] MEDS: SODIUM CHLORIDE 0.9% (FLUSH) 10 ML SYG IV PRN (12:35)
[2019-04-01 14:48] VITALS: BP 115/66; TEMP 98.1
== END 2019-04-01 14:48 | disposition home or self-care (01) ==
LOC: ER 12:02
DX: K52.9 Noninfective gastroenteritis and colitis, unspecified (principal); J45.909 Unspecified asthma, uncomplicated; Z90.49 Acquired absence of other specified parts of digestive tract; Z88.5 Allergy status to narcotic agent; Z88.8 Allergy status to other drugs, medicaments and biological substances
CPT/HCPCS: 36415; 80048; 80076; 81001; 81025; 82150; 83690; 85025; 87502; J1885; J2405; J7030

== ENCOUNTER 2019-04-06 15:44 | Emergency (ER) | payer SELFPAY ==
[2019-04-06 16:04] VITALS: TEMP 98.1
--- NOTE | 2019-04-06 16:24 | ED.PDOC ---
History of Present Illness - General Chief Complaint: Problem Time Seen by Provider: 04/06/19 16:14 Source: patient, RN notes reviewed, Vital Signs reviewed, old records Exam Limitations: no limitations - History of Present Illness Initial Comments: pt is a 23 yo female who presents to ED for right flank pain and duysuria. States she has had 2 day h/o dysuria, hematuria and frequency. Developed sharp right flank pain [address] [employer]. Denies nausea, vomiting or diarrhea past 2 days. She was seen in ED 5 days ago for flank pain, NVD and diagnosed with viral gastroenteritis and symptoms improved. Denies fever. Has not taken anything for pain, but has taken Azo for dysuria with some relief. Reports h/o kidney stones with similar flank pain. Has h/o appendectomy and 3 previous C sections. Stat es LMP ended 2 days ago Allergies/Adverse Reactions: Allergies Soap Adverse Reaction (Intermediate, Verified 04/01/19 12:32) Rash Antibacterial soap Oxytocin [From Pitocin] Adverse Reaction (Verified 04/01/19 12:32) ADHESIVE Adverse Reaction (Uncoded 05/19/17 18:29) Other Increases skin sensitivity Review of Systems - Review of Systems Constitutional: Denies: chills, fever, weakness EENTM: Denies: blurred vision, ear pain, throat pain Respiratory: Denies: cough, short of breath Cardiology: Denies: chest pain, palpitations, syncope Gastrointestinal/Abdominal: Denies: diarrhea, nausea Genitourinary: States: dysuria, frequency, hematuria Musculoskeletal: Denies: muscle pain, neck pain Skin: States: no symptoms reported Neurological: States: no symptoms reported All other Systems: Reviewed and Negative Past Medical History (General) - Patient Medical History Hx Seizures: No Hx Stroke: No Hx Dementia: No Hx Asthma: Yes Hx of COPD: No Hx Cardiac Disorders: No Hx Congestive Heart Failure: No Hx Pacemaker: No Hx Hypertension: No Hx Thyroid Disease: No Hx Diabetes: No Hx Gastroesophageal Reflux: No Hx Renal Disease: No Hx Cancer: No Hx of HIV: No Hx Hepatitis C: No Hx MRSA: No Surgical History: appendectomy, other - Vaccination History Hx Tetanus, Diphtheria Vaccination: No Hx Influenza Vaccination: No Hx Pneumococcal Vaccination: No - Social History Hx Tobacco Use: No Hx Chewing Tobacco Use: No Hx Alcohol Use: Yes - Social use Hx Substance Use: No Hx Substance Use Treatment: No Hx Depression: No Hx Physical Abuse: No Hx Emotional Abuse: No Hx Suspected Abuse: No - Female History Hx Last Menstrual Period: 02/25/17 - still on her periods Patient : No Expected Date of Delivery:: 11/15/18 Hx Gestational Age: 25 Family Medical History - Family History Mother Family History: Unknown Living Status: Still Living Hx Family Asthma: Yes Hx Family Hypertension: Yes Hx Family;Other: Seizures Physical Exam - Physical Exam General Appearance: Alert, Comfortable, No apparent distress Neck: non-tender, full range of motion, supple Respiratory: chest non-tender, lungs clear, normal breath sounds, no respiratory distress Cardiovascular/Chest: regular rate, rhythm, no edema, no JVD Gastrointestinal/Abdominal: non tender, soft Back Exam: no CVA tenderness, no vertebral tenderness Extremity: normal range of motion, non-tender, no pedal edema Neurologic: no motor/sensory deficits, alert, normal mood/affect Skin Exam: warm/dry, cyanosis Progress - Progress Progress: 04/06/19 16:25 Pt presents with 1 hour h/o right flank pain that feels similar to previous episodes of kidney stones. Also has had symptoms of UTI past 2 days. no fever or vomiting. Pt nontoxic appearing upon arrival. UA shows hematuria with few WBC's, will get labs and CT A/P to evaluate for cystitis, pyelo, kidney stones, biliary colic. 04/06/19 16:55 Pt urinated in ED and states that she felt that she passed the stone. States pain has resolved at this time. Awaiting CT results and labs. Reports pain is 0/10 now. 04/06/19 17:12 Pt denies pain. I have discussed CT and lab results with recently passed stone and right ovarian cyst. She will f/u with Urologist and BONE WORKER for continued outpatient evaluation. SRP given. - Results/Orders Results/Orders: CT ABDOMEN/PELVIS FINDINGS: The lung bases are clear. The liver appears unremarkable. The spleen and pancreas appear unremarkable. No adrenal masses. Moderate hydronephrosis on the right without an obstructing calculus identified. There is a stone in the dependent portion of the urinary bladder on the left measuring 7 mm. Suspect this is a stone that has just been passed into the bladder with residual hydronephrosis perinephric edema on the right. There are nonobstructing renal calculi bilaterally. The gallbladder is contracted. No aneurysmal dilatation of the aorta. No bowel obstruction. Appendix appears absent. Simple appearing ovarian cyst on the right measures 4.7 cm. This is almost certainly benign and no follow-up is recommended. No free pelvic fluid. IMPRESSION: Moderate right hydronephrosis with a stone measuring 7 mm in the dependent portion of the urinary bladder likely a stone recently passed into the bladder Nonobstructing renal calculi bilaterally Right ovarian cyst for which no follow-up is recommended. 04/06/19 16:20 IV:Start .ONCE Laboratory Results - last 24 hr 04/06/19 04/06/19 04/06/19 15:45 15:45 16:20 WBC 7.3 RBC 4.45 Hgb 12.9 Hct 38.4 MCV 86.3 MCH 29.0 MCHC 33.6 RDW 14.2 Plt Count 351 MPV 8.1 Absolute Neuts (auto) 3.70 Absolute Lymphs (auto) 2.60 Absolute Monos (auto) 0.70 Absolute Eos (auto) 0.20 Absolute Basos (auto) 0.10 Neutrophils % 51.3 Lymphocytes % 35.0 Monocytes % 9.9 H Eosinophils % 2.7 Basophils % 1.1 Sodium Potassium Chloride Carbon Dioxide Anion Gap BUN Creatinine BUN/Creatinine Ratio Random Glucose Serum Osmolality Calcium Urine Color Yellow Urine Appearance Sl cloudy Urine pH 6.5 Ur Specific [place] >= 1.030 Urine Protein 100 H Urine Glucose (UA) Negative Urine Ketones Negative Urine Blood Moderate H Urine Nitrite Negative Urine Bilirubin Negative Urine Urobilinogen 0.2 Ur Leukocyte Esterase Negative Urine RBC 20-30 H Urine WBC 3-5 H Ur Epithelial Cells 10-20 Amorphous Sediment 1+ Urine Bacteria 1+ Urine Mucus Small Urine HCG, Qual Negative 04/06/19 16:20 WBC RBC Hgb Hct MCV MCH MCHC RDW Plt Count MPV Absolute Neuts (auto) Absolute Lymphs (auto) Absolute Monos (auto) Absolute Eos (auto) Absolute Basos (auto) Neutrophils % Lymphocytes % Monocytes % Eosinophils % Basophils % Sodium 139 Potassium 3.4 L Chloride 106 Carbon Dioxide 24 Anion Gap 12.4 BUN 18 Creatinine 0.64 BUN/Creatinine Ratio 28.1 H Random Glucose 95 Serum Osmolality 279.2 Calcium 9.5 Urine Color Urine Appearance Urine pH Ur Specific [place] Urine Protein Urine Glucose (UA) Urine Ketones Urine Blood Urine Nitrite Urine Bilirubin Urine Urobilinogen Ur Leukocyte Esterase Urine RBC Urine WBC Ur Epithelial Cells Amorphous Sediment Urine Bacteria Urine Mucus Urine HCG, Qual Departure - Departure Clinical Impression: Ureterolithiasis Hydronephrosis Qualifiers: Hydronephrosis type: with ureteral calculous obstruction Qualified Code(s): N13.2 - Hydronephrosis with renal and ureteral calculous obstruction Ovarian cyst Qualifiers: Laterality: right Qualified Code(s): N83.201 - Unspecified ovarian cyst, right side Time of Disposition: 17:15 Disposition: Discharge to Home or Self Care Condition: Good Departure Forms: ED Discharge - Pt. Copy, Patient Portal Self Enrollment Instructions: DI for Kidney Stones Diet: resume usual diet Activity: increase activity as tolerated Referrals: YASMIN SAMS [Primary Care Provider] - 1-2 Days
[2019-04-06 16:56] VITALS: O2SAT 99
--- NOTE | 2019-04-06 17:03 | CT ---
EXAM DESCRIPTION: Abdoment/Pelvis w/o Contrast CLINICAL HISTORY: 23 years Female right flank pain COMPARISON: 11/22/2016 TECHNIQUE: Contiguous axial images obtained through the abdomen and pelvis without IV contrast. Reformatted images obtained. This exam was performed according to our department optimization program which includes automated exposure control, adjustment of the mA and/or kv according to patient size and/or use of iterative reconstruction technique. FINDINGS: The lung bases are clear. The liver appears unremarkable. The spleen and pancreas appear unremarkable. No adrenal masses. Moderate hydronephrosis on the right without an obstructing calculus identified. There is a stone in the dependent portion of the urinary bladder on the left measuring 7 mm. Suspect this is a stone that has just been passed into the bladder with residual hydronephrosis perinephric edema on the right. There are nonobstructing renal calculi bilaterally. The gallbladder is contracted. No aneurysmal dilatation of the aorta. No bowel obstruction. Appendix appears absent. Simple appearing ovarian cyst on the right measures 4.7 cm. This is almost certainly benign and no follow-up is recommended. No free pelvic fluid. IMPRESSION: Moderate right hydronephrosis with a stone measuring 7 mm in the dependent portion of the urinary bladder likely a stone recently passed into the bladder Nonobstructing renal calculi bilaterally Right ovarian cyst for which no follow-up is recommended. Electronically signed by: Lili Guevara MD 04/06/2019 5:02 PM ENGINEERING INSPECTION ASSISTANT
[2019-04-06 17:30] VITALS: BP 134/75
== END 2019-04-06 17:28 | disposition home or self-care (01) ==
LOC: ER 15:44
DX: N13.2 Hydronephrosis with renal and ureteral calculous obstruction (principal); N83.201 Unspecified ovarian cyst, right side; J45.909 Unspecified asthma, uncomplicated; Z87.442 Personal history of urinary calculi; Z90.49 Acquired absence of other specified parts of digestive tract; Z88.5 Allergy status to narcotic agent

== ENCOUNTER 2019-07-25 20:41 | Emergency (ER) | payer SELFPAY ==
[2019-07-25 20:57] VITALS: TEMP 97.3; O2SAT 98
[2019-07-25] MEDS ORDERED: predniSONE 20 MG TAB PO ONE (21:08)
--- NOTE | 2019-07-25 21:11 | ED.PDOC ---
History of Present Illness - General Chief Complaint: Respiratory Problem Stated Complaint: cough Time Seen by Provider: 07/25/19 20:46 Source: patient Exam Limitations: no limitations - History of Present Illness Initial Comments: patient is a 23-year-old with a history of asthma presenting with an increased cough over the last 24 hours.Mild runny nose. Very mild sore throat. No fever. No real body aches. No shortness of breath at this point. She mainly uses a rescue inhaler. Timing/Duration: 24 hours Severity: mild Improving Factors: nothing Worsening Factors: nothing Associated Symptoms: cough, malaise Allergies/Adverse Reactions: Allergies Soap Adverse Reaction (Intermediate, Verified 04/01/19 12:32) Rash Antibacterial soap Oxytocin [From Pitocin] Adverse Reaction (Verified 04/01/19 12:32) ADHESIVE Adverse Reaction (Uncoded 05/19/17 18:29) Other Increases skin sensitivity Home Medications: Ambulatory Orders predniSONE [Prednisone] 20 mg PO DAILY #3 tab 07/25/19 Review of Systems - Review of Systems EENTM: States: nose congestion Respiratory: States: cough, wheezing Cardiology: States: no symptoms reported Gastrointestinal/Abdominal: States: no symptoms reported Genitourinary: States: no symptoms reported Musculoskeletal: States: no symptoms reported Skin: States: no symptoms reported Neurological: States: no symptoms reported Endocrine: States: no symptoms reported All other Systems: No Change from Baseline Past Medical History (General) - Patient Medical History Hx Seizures: No Hx Stroke: No Hx Dementia: No Hx Asthma: Yes Hx of COPD: No Hx Cardiac Disorders: No Hx Congestive Heart Failure: No Hx Pacemaker: No Hx Hypertension: No Hx Thyroid Disease: No Hx Diabetes: No Hx Gastroesophageal Reflux: No Hx Renal Disease: No Hx Cancer: No Hx of HIV: No Hx Hepatitis C: No Hx MRSA: No Surgical History: appendectomy, other - Vaccination History Hx Tetanus, Diphtheria Vaccination: No Hx Influenza Vaccination: No Hx Pneumococcal Vaccination: No - Social History Hx Tobacco Use: No Hx Chewing Tobacco Use: No Hx Alcohol Use: Yes - Social use Hx Substance Use: No Hx Substance Use Treatment: No Hx Depression: No Hx Physical Abuse: No Hx Emotional Abuse: No Hx Suspected Abuse: No - Female History Hx Last Menstrual Period: 02/25/17 - still on her periods Patient : No Expected Date of Delivery:: 11/15/18 Hx Gestational Age: 25 Family Medical History - Family History Mother Family History: Unknown Living Status: Still Living Hx Family Asthma: Yes Hx Family Hypertension: Yes Hx Family;Other: Seizures Physical Exam - Physical Exam General Appearance: Alert, Comfortable, No apparent distress Eye Exam: bilateral normal Ears, Nose, Throat: hearing grossly normal, normal pharynx Neck: full range of motion, supple Respiratory: no respiratory distress, no accessory muscle use, wheezing Cardiovascular/Chest: normal peripheral pulses, regular rate, rhythm, no edema Peripheral Pulses: radial,right: 2+, radial,left: 2+ Gastrointestinal/Abdominal: non tender, soft Rectal Exam: deferred Extremity: normal range of motion, no pedal edema, normal capillary refill 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 This is most likely triggered by a environmental allergy however a viral source is not entirely ruled out. The patient is going to be placed on prednisone for the next 3 days. Additionally she can take Zyrtec or Akilah once daily for the next 4 or 5 days. She needs to do her breathing treatments at least twice a day and use her rescue inhaler additionally as needed. ER warnings are given for any significant worsening. No evidence of distress at this time. No known direct exposure to coronavirus. savage [id number] Departure - Departure Clinical Impression: Asthma exacerbation Qualifiers: Asthma severity: mild Asthma persistence: intermittent Qualified Code(s): J45.21 - Mild intermittent asthma with (acute) exacerbation Disposition: Discharge to Home or Self Care Condition: Fair Departure Forms: ED Discharge - Pt. Copy, Patient Portal Self Enrollment Instructions: DI for Asthma -- Adult Diet: regular diet Activity: increase activity as tolerated Referrals: YASMIN SAMS [Primary Care Provider] - 1-2 Weeks Prescriptions: predniSONE [Prednisone] 20 mg PO DAILY #3 tab Home Medications: Ambulatory Orders predniSONE [Prednisone] 20 mg PO DAILY #3 tab 07/25/19 Additional Instructions: The patient is a 23-year-old female presenting with what appears to be an asthma exacerbation. This is most likely triggered by a environmental allergy however a viral source is not entirely ruled out. The patient is going to be placed on prednisone for the next 3 days. Additionally she can take Zyrtec or Akilah once daily for the next 4 or 5 days. She needs to do her breathing treatments at least twice a day and use her rescue inhaler additionally as needed. ER warnings are given for any significant worsening.
[2019-07-25 21:17] VITALS: BP 125/75
== END 2019-07-25 21:17 | disposition home or self-care (01) ==
LOC: ER 20:41
DX: J45.21 Mild intermittent asthma with (acute) exacerbation (principal)

== ENCOUNTER 2020-01-07 15:16 | Emergency (ER) | payer SELFPAY ==
--- NOTE | 2020-01-07 15:42 | ED.PDOC ---
History of Present Illness - General Chief Complaint: Problem Stated Complaint: vaginal burning and itching Time Seen by Provider: 01/07/20 15:35 Source: patient - History of Present Illness Initial Comments: vaginal pruritis, slight discharge and foul odor x several weeks, has not tried anything otc for it yet. denies dysuria, mild dysparunia, after intercourse. in detention monogamous relationship. Timing/Duration: week Quality: mild Radiation: none Allergies/Adverse Reactions: Allergies Soap Adverse Reaction (Intermediate, Verified 04/01/19 12:32) Rash Antibacterial soap Oxytocin [From Pitocin] Adverse Reaction (Verified 04/01/19 12:32) ADHESIVE Adverse Reaction (Uncoded 05/19/17 18:29) Other Increases skin sensitivity Home Medications: Ambulatory Orders predniSONE [Prednisone] 20 mg PO DAILY #3 tab 07/25/19 Fluconazole [Diflucan Tab] 150 mg PO ONCE #1 tab 01/07/20 metroNIDAZOLE [Flagyl] 500 mg PO BID #14 tab 01/07/20 Review of Systems - Review of Systems Constitutional: States: no symptoms reported EENTM: States: no symptoms reported Respiratory: States: no symptoms reported Cardiology: States: no symptoms reported Gastrointestinal/Abdominal: States: no symptoms reported, see HPI Genitourinary: States: no symptoms reported Past Medical History (General) - Patient Medical History Hx Seizures: No Hx Stroke: No Hx Dementia: No Hx Asthma: Yes Hx of COPD: No Hx Cardiac Disorders: No Hx Congestive Heart Failure: No Hx Pacemaker: No Hx Hypertension: No Hx Thyroid Disease: No Hx Diabetes: No Hx Gastroesophageal Reflux: No Hx Renal Disease: No Hx Cancer: No Hx of HIV: No Hx Hepatitis C: No Hx MRSA: No - Vaccination History Hx Tetanus, Diphtheria Vaccination: No Hx Influenza Vaccination: No Hx Pneumococcal Vaccination: No - Social History Hx Tobacco Use: No Hx Chewing Tobacco Use: No Hx Alcohol Use: Yes - Social use Hx Substance Use: No Hx Substance Use Treatment: No Hx Depression: No Hx Physical Abuse: No Hx Emotional Abuse: No Hx Suspected Abuse: No - Female History Hx Last Menstrual Period: 02/25/17 - still on her periods Patient : No Expected Date of Delivery:: 11/15/18 Hx Gestational Age: 25 Family Medical History - Family History Mother Family History: Unknown Living Status: Still Living Hx Family Asthma: Yes Hx Family Hypertension: Yes Hx Family;Other: Seizures Physical Exam - Physical Exam General Appearance: Alert, Comfortable, No apparent distress Cardiovascular/Respiratory: no respiratory distress Neurologic: alert, oriented x 3 Skin Exam: normal color Departure - Departure Clinical Impression: Bacterial vaginosis Disposition: Discharge to Home or Self Care Condition: Fair Departure Forms: ED Discharge - Pt. Copy, Patient Portal Self Enrollment Instructions: Bacterial Vaginosis Activity: ambulate only with walker Referrals: YASMIN SAMS [Primary Care Provider] - 1-2 Weeks Prescriptions: Fluconazole [Diflucan Tab] 150 mg PO ONCE #1 tab metroNIDAZOLE [Flagyl] 500 mg PO BID #14 tab Home Medications: Ambulatory Orders predniSONE [Prednisone] 20 mg PO DAILY #3 tab 07/25/19 Fluconazole [Diflucan Tab] 150 mg PO ONCE #1 tab 01/07/20 metroNIDAZOLE [Flagyl] 500 mg PO BID #14 tab 01/07/20
[2020-01-07 16:23] VITALS: BP 122/73; TEMP 98.2; O2SAT 97
== END 2020-01-07 16:23 | disposition home or self-care (01) ==
LOC: ER 15:16
DX: N76.0 Acute vaginitis (principal); J45.909 Unspecified asthma, uncomplicated; Z88.5 Allergy status to narcotic agent